=== PATIENT | male | born 1945 | race American Indian/Alaskan Native ===

== ENCOUNTER 2020-05-28 12:32 | Inpatient (IN) | payer MEDICARE, OTHER ==
[2020-05-28] MEDS ORDERED: SODIUM CHLORIDE 0.9% 1000 ML 1,000 ML IV ONE ×3 (13:30→18:55)
[2020-05-28 14:34] LABS: Hematocrit 20.9 % (35.5-45.6); Hemoglobin 7.1 gm/dl (11.8-15.2); Mean Corpuscular HGB Conc 34 % (32-34); Mean Corpuscular Volume 74 fl (84-94); Platelet Count 187 K/mm3 (140-440); Red Blood Count 2.84 M/mm3 (3.65-5.03); Red Cell Distribution Width 35.1 % (13.2-15.2)
[2020-05-28 14:52] LABS: Creatine Kinase MB 2.1 ng/mL (0.0-4.0)
[2020-05-28 14:55] LABS: Alanine Aminotransferase 6 units/L (7-56); Albumin 2.6 g/dL (3.9-5); BUN/Creatinine Ratio 18; Blood Urea Nitrogen 36 mg/dL (9-20); Calcium 8.2 mg/dL (8.4-10.2); Hemolysis Index 2
[2020-05-28 15:05] LABS: Free T4 (Free Thyroxine) 0.87 ng/dL (0.76-1.46)
[2020-05-28 15:48] LABS: Basophils % (Manual) 0 % (0.0-1.8); Eosinophils % (Manual) 0 % (0.0-4.3); Hypochromasia Few; Total Cells Counted 100
[2020-05-28 15:49] LABS: Anisocytosis 2+; Schistocytes Few
--- NOTE | 2020-05-28 16:07 | Emergency Department Report ---
ED General Adult HPI - General Chief complaint: Medical Clearance Stated complaint: WEAKNESS Time Seen by Provider: 05/28/20 13:41 Source: patient, EMS Mode of arrival: Stretcher Limitations: No Limitations - History of Present Illness Initial comments: Patient presents to the ED for AMS and low BP. Per EMS the patient has not been eating or drinking for the last 3 days. On my initial evaluation of the patient he has visitors in the room praying for him. 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 The patient is altered and not able to add to the initial evaluation. -: unknown Severity scale (0 -10): 0 Improves with: none Worsens with: none Associated Symptoms: denies other symptoms Treatments Prior to Arrival: none - Related Data Allergies Allergy/AdvReac Type Severity Reaction Status Date / Time No Known Allergies Allergy Unverified 05/28/20 12:55 ED Review of Systems ROS: Stated complaint: WEAKNESS Other details as noted in HPI Comment: Unobtainable due to pts medical conditions ED Past Medical Hx - Past Medical History Hx of Cancer: Yes (stage 4 prostate) Additional medical history: Anemia, G.I bleed - Surgical History Past Surgical History?: No - Social History Smoking Status: Never Smoker Substance Use Type: None ED Physical Exam - General Limitations: Altered Mental Status General appearance: in no apparent distress - Head Head exam: Present: atraumatic, normocephalic - Eye Eye exam: Present: normal appearance, PERRL Pupils: Present: normal accommodation, irregular - ENT ENT exam: Present: mucous membranes dry - Neck Neck exam: Present: normal inspection - Respiratory Respiratory exam: Present: normal lung sounds bilaterally. Absent: respiratory distress - Cardiovascular Cardiovascular Exam: Present: normal rhythm. Absent: regular rate - GI/Abdominal GI/Abdominal exam: Present: soft. Absent: distended, tenderness - Extremities Exam Extremities exam: Present: normal inspection - Neurological Exam Neurological exam: Present: other (altered ) - Psychiatric Psychiatric exam: Present: other (Not able to access due to the patient's condition) - Skin Skin exam: Present: warm, dry, intact, normal color. Absent: rash ED Course Vital Signs 05/28/20 05/28/20 05/28/20 12:55 13:16 13:24 Temperature 97.4 F L Pulse Rate 78 Respiratory 16 18 13 Rate Blood Pressure 89/31 O2 Sat by Pulse 95 99 Oximetry 05/28/20 05/28/20 05/28/20 13:30 13:45 14:01 Temperature Pulse Rate 83 81 70 Respiratory 15 21 15 Rate Blood Pressure 87/49 87/49 80/44 O2 Sat by Pulse 86 99 100 Oximetry 05/28/20 05/28/20 05/28/20 14:15 14:31 14:45 Temperature Pulse Rate 79 76 78 Respiratory 17 15 15 Rate Blood Pressure 58/38 58/38 80/44 O2 Sat by Pulse 86 94 100 Oximetry 05/28/20 05/28/20 05/28/20 15:01 15:15 15:31 Temperature Pulse Rate 79 78 Respiratory 16 21 15 Rate Blood Pressure 87/58 88/45 92/68 O2 Sat by Pulse 65 L 98 Oximetry 05/28/20 05/28/20 05/28/20 15:45 16:01 16:15 Temperature Pulse Rate 79 85 80 Respiratory 13 16 14 Rate Blood Pressure 89/59 89/59 89/59 O2 Sat by Pulse 100 73 L 71 L Oximetry 05/28/20 05/28/20 16:30 16:45 Temperature Pulse Rate 80 81 Respiratory 17 16 Rate Blood Pressure 88/52 87/49 O2 Sat by Pulse 65 L 65 L Oximetry ED Medical Decision Making - Lab Data Result diagrams: 05/28/20 14:11 05/28/20 14:11 Lab Results 05/28/20 05/28/20 05/28/20 Range/Units 14:11 14:11 14:11 WBC 6.3 (4.5-11.0) K/mm3 RBC 2.84 L (3.65-5.03) M/mm3 Hgb 7.1 L (11.8-15.2) gm/dl Hct 20.9 L (35.5-45.6) % MCV 74 L (84-94) fl MCH 25 L (28-32) pg MCHC 34 (32-34) % RDW 35.1 H (13.2-15.2) % Plt Count 187 (140-440) K/mm3 Add Manual Diff Complete Total Counted 100 Seg Neuts % (Manual) 74.0 H (40.0-70.0) % Band Neutrophils % 0 % Lymphocytes % (Manual) 18.0 (13.4-35.0) % Reactive Lymphs % (Man) 0 % Monocytes % (Manual) 8.0 H (0.0-7.3) % Eosinophils % (Manual) 0 (0.0-4.3) % Basophils % (Manual) 0 (0.0-1.8) % Metamyelocytes % 0 % Myelocytes % 0 % Promyelocytes % 0 % Blast Cells % 0 % Nucleated RBC % Not Reportable Seg Neutrophils # Man 4.7 (1.8-7.7) K/mm3 Band Neutrophils # 0.0 K/mm3 Lymphocytes # (Manual) 1.1 L (1.2-5.4) K/mm3 Abs React Lymphs (Man) 0.0 K/mm3 Monocytes # (Manual) 0.5 (0.0-0.8) K/mm3 Eosinophils # (Manual) 0.0 (0.0-0.4) K/mm3 Basophils # (Manual) 0.0 (0.0-0.1) K/mm3 Metamyelocytes # 0.0 K/mm3 Myelocytes # 0.0 K/mm3 Promyelocytes # 0.0 K/mm3 Blast Cells # 0.0 K/mm3 WBC Morphology Not Reportable Hypersegmented Neuts Not Reportable Hyposegmented Neuts Not Reportable Hypogranular Neuts Not Reportable Smudge Cells Not Reportable Toxic Granulation Not Reportable Toxic Vacuolation Not Reportable Dohle Bodies Not Reportable Pelger-Huet Anomaly Not Reportable Dorys Rods Not Reportable Platelet Estimate Not Reportable Clumped Platelets Not Reportable Plt Clumps, EDTA Not Reportable Large Platelets Not Reportable Giant Platelets Not Reportable Platelet Satelliting Not Reportable Plt Morphology Comment Not Reportable RBC Morphology Not Reportable Dimorphic RBCs Not Reportable Polychromasia Not Reportable Hypochromasia Few Poikilocytosis Not Reportable Anisocytosis 2+ Microcytosis 1+ Macrocytosis Not Reportable Spherocytes Not Reportable Pappenheimer Bodies Not Reportable Sickle Cells Not Reportable Target Cells Not Reportable Tear Drop Cells Not Reportable Ovalocytes Not Reportable Helmet Cells Not Reportable Simon-Kerrick Bodies Not Reportable [place] Rings Not Reportable [place] Cells Not Reportable Bite Cells Not Reportable Crenated Cell Not Reportable Elliptocytes Not Reportable Acanthocytes (Spur) Not Reportable Rouleaux Not Reportable Hemoglobin C Crystals Not Reportable Schistocytes Few Malaria parasites Not Reportable Varghese Bodies Not Reportable Hem Pathologist Commnt No Sodium 141 (137-145) mmol/L Potassium 3.8 (3.6-5.0) mmol/L Chloride 106.2 (98-107) mmol/L Carbon Dioxide 16 L (22-30) mmol/L Anion Gap 23 mmol/L BUN 36 H (9-20) mg/dL Creatinine 2.0 H (0.8-1.3) mg/dL Estimated GFR 40 ml/min BUN/Creatinine Ratio 18 % Glucose 87 (75-100) mg/dL Calcium 8.2 L (8.4-10.2) mg/dL Magnesium (1.7-2.3) mg/dL Total Bilirubin 0.40 (0.1-1.2) mg/dL AST 40 (5-40) units/L ALT 6 L (7-56) units/L Alkaline Phosphatase 82 (35-129) units/L Total Creatine Kinase 310 H (55-170) units/L CK-MB (CK-2) 2.1 (0.0-4.0) ng/mL CK-MB (CK-2) Rel Index 0.6 (0-4) Troponin T < 0.010 (0.00-0.029) ng/mL Total Protein 7.0 (6.3-8.2) g/dL Albumin 2.6 L (3.9-5) g/dL Albumin/Globulin Ratio 0.6 % Lipase 48 (13-60) units/L TSH 4.840 H (0.270-4.200) mlU/mL Free T4 0.87 (0.76-1.46) ng/dL Urine Color (Yellow) Urine Turbidity (Clear) Urine pH (5.0-7.0) Ur Specific Johnston (1.003-1.030) Urine Protein (Negative) mg/dL Urine Glucose (UA) (Negative) mg/dL Urine Ketones (Negative) mg/dL Urine Blood (Negative) Urine Nitrite (Negative) Urine Bilirubin (Negative) Urine Urobilinogen (<2.0) mg/dL Ur Leukocyte Esterase (Negative) Urine WBC (Auto) (0.0-6.0) /HPF Urine RBC (Auto) (0.0-6.0) /HPF U Epithel Cells (Auto) (0-13.0) /HPF Urine Bacteria (Auto) (Negative) /HPF Hyaline Casts /LPF Urine Mucus /HPF Urine Opiates Screen Urine Methadone Screen Ur Barbiturates Screen Ur Phencyclidine Scrn Ur Amphetamines Screen U Benzodiazepines Scrn Urine Cocaine Screen U Marijuana (THC) Screen Drugs of Abuse Note 05/28/20 05/28/20 05/28/20 Range/Units 14:11 Unknown Unknown WBC (4.5-11.0) K/mm3 RBC (3.65-5.03) M/mm3 Hgb (11.8-15.2) gm/dl Hct (35.5-45.6) % MCV (84-94) fl MCH (28-32) pg MCHC (32-34) % RDW (13.2-15.2) % Plt Count (140-440) K/mm3 Add Manual Diff Total Counted Seg Neuts % (Manual) (40.0-70.0) % Band Neutrophils % % Lymphocytes % (Manual) (13.4-35.0) % Reactive Lymphs % (Man) % Monocytes % (Manual) (0.0-7.3) % Eosinophils % (Manual) (0.0-4.3) % Basophils % (Manual) (0.0-1.8) % Metamyelocytes % % Myelocytes % % Promyelocytes % % Blast Cells % % Nucleated RBC % Seg Neutrophils # Man (1.8-7.7) K/mm3 Band Neutrophils # K/mm3 Lymphocytes # (Manual) (1.2-5.4) K/mm3 Abs React Lymphs (Man) K/mm3 Monocytes # (Manual) (0.0-0.8) K/mm3 Eosinophils # (Manual) (0.0-0.4) K/mm3 Basophils # (Manual) (0.0-0.1) K/mm3 Metamyelocytes # K/mm3 Myelocytes # K/mm3 Promyelocytes # K/mm3 Blast Cells # K/mm3 WBC Morphology Hypersegmented Neuts Hyposegmented Neuts Hypogranular Neuts Smudge Cells Toxic Granulation Toxic Vacuolation Dohle Bodies Pelger-Huet Anomaly Dorys Rods Platelet Estimate Clumped Platelets Plt Clumps, EDTA Large Platelets Giant Platelets Platelet Satelliting Plt Morphology Comment RBC Morphology Dimorphic RBCs Polychromasia Hypochromasia Poikilocytosis Anisocytosis Microcytosis Macrocytosis Spherocytes Pappenheimer Bodies Sickle Cells Target Cells Tear Drop Cells Ovalocytes Helmet Cells Simon-Kerrick Bodies [place] Rings [place] Cells Bite Cells Crenated Cell Elliptocytes Acanthocytes (Spur) Rouleaux Hemoglobin C Crystals Schistocytes Malaria parasites Varghese Bodies Hem Pathologist Commnt Sodium (137-145) mmol/L Potassium (3.6-5.0) mmol/L Chloride (98-107) mmol/L Carbon Dioxide (22-30) mmol/L Anion Gap mmol/L BUN (9-20) mg/dL Creatinine (0.8-1.3) mg/dL Estimated GFR ml/min BUN/Creatinine Ratio % Glucose (75-100) mg/dL Calcium (8.4-10.2) mg/dL Magnesium 2.00 (1.7-2.3) mg/dL Total Bilirubin (0.1-1.2) mg/dL AST (5-40) units/L ALT (7-56) units/L Alkaline Phosphatase (35-129) units/L Total Creatine Kinase (55-170) units/L CK-MB (CK-2) (0.0-4.0) ng/mL CK-MB (CK-2) Rel Index (0-4) Troponin T (0.00-0.029) ng/mL Total Protein (6.3-8.2) g/dL Albumin (3.9-5) g/dL Albumin/Globulin Ratio % Lipase (13-60) units/L TSH (0.270-4.200) mlU/mL Free T4 (0.76-1.46) ng/dL Urine Color Yellow (Yellow) Urine Turbidity Clear (Clear) Urine pH 5.0 (5.0-7.0) Ur Specific Johnston 1.017 (1.003-1.030) Urine Protein <15 mg/dl (Negative) mg/dL Urine Glucose (UA) Neg (Negative) mg/dL Urine Ketones Tr (Negative) mg/dL Urine Blood Neg (Negative) Urine Nitrite Neg (Negative) Urine Bilirubin Neg (Negative) Urine Urobilinogen 2.0 (<2.0) mg/dL Ur Leukocyte Esterase Tr (Negative) Urine WBC (Auto) 5.0 (0.0-6.0) /HPF Urine RBC (Auto) 3.0 (0.0-6.0) /HPF U Epithel Cells (Auto) 1.0 (0-13.0) /HPF Urine Bacteria (Auto) 1+ (Negative) /HPF Hyaline Casts 1 /LPF Urine Mucus Few /HPF Urine Opiates Screen Presumptive negative Urine Methadone Screen Presumptive negative Ur Barbiturates Screen Presumptive negative Ur Phencyclidine Scrn Presumptive negative Ur Amphetamines Screen Presumptive negative U Benzodiazepines Scrn Presumptive negative Urine Cocaine Screen Presumptive negative U Marijuana (THC) Screen Presumptive negative Drugs of Abuse Note Disclamer - EKG Data -: EKG Interpreted by Nm EKG shows normal: sinus rhythm Rate: normal - Medical Decision Making 2 L NS of IV fluids were given without increase in BP Critical Care Time: Yes Critical care time in (mins) excluding proc time.: 35 Critical care attestation.: If time is entered above; I have spent that time in minutes in the direct care of this critically ill patient, excluding procedure time. ED Disposition Clinical Impression: Hypotension, Altered mental status Disposition: DC-09 OP ADMIT IP TO THIS HOSP Is pt being admited?: Yes Does the pt Need Aspirin: No Condition: Stable Referrals: PRIMARY CARE, [Primary Care Provider] - 3-5 Days
[2020-05-28 16:56] LABS: Bacteria,Urine 1+ /HPF (Negative); Bilirubin,Urine NEG (Negative); Blood,Urine NEG (Negative); Color,Urine Yellow (Yellow); Hyaline Casts,Urine 1 /LPF; Mucus,Urine FEW /HPF; Protein,Urine <15 mg/dL mg/dL (Negative)
[2020-05-28 17:02] LABS: Amphetamine Screen,Urine PRESUMPTIVE NEGATIVE; Benzodiazepines Screen,Urine PRESUMPTIVE NEGATIVE; Cannabinoid Screen,Urine PRESUMPTIVE NEGATIVE; Cocaine Screen,Urine PRESUMPTIVE NEGATIVE; Methadone Screen,Urine PRESUMPTIVE NEGATIVE; Opiate Screen,Urine PRESUMPTIVE NEGATIVE
--- NOTE | 2020-05-28 17:08 | Cat Scan Report ---
CT head/brain wo con INDICATION: ams. TECHNIQUE: Routine CT head. All CT scans at this location are performed using CT dose reduction for A HAMIDA by means of automated exposure control. COMPARISON: None. FINDINGS: Intracranial: Martell-white matter differentiation is maintained. No intracranial hemorrhage. No extra a xial collection.. No hydrocephalus. No herniation. Sinuses: Paranasal sinuses and mastoid air cells are essentially clear. Orbits: Globes are intact. Calvarium: No acute fracture. IMPRESSION: 1. No acute intracranial abnormality. Signer Name: Tom Sosa MD Signed: 05/28/2020 5:04 PM Workstation Name: [id number]
[2020-05-28] MEDS ORDERED: cefTRIAXone/NS 2 GM/100 ML 2 GM/100 ML BAG IV ONE ×2 (18:38→21:09)
--- NOTE | 2020-05-28 18:44 | History and Physical Report ---
History of Present Illness Chief complaint: He is confused and he is getting weaker History of present illness: 75 YO Male with Vascular Dementia, Cerebral Atherosclerosis presents to ED for evaluation. Patient is confused and lethargic and unable to provide detailed history at the time of my evaluation. Patient history taken from EMS, ED staff, as well as friends who are at the bedside during exam and interview. As per family and friends, the patient has experienced increased confusion and decreased oral intake over the past 3 days since [facility]. Patient is currently bedbound, nonambulatory, requires 6/6 assistance with activities of daily living, and has a palliative performance score 30%. EMS was notified and upon arrival the patient was found to be in distress and subsequently transported to [facility] for further care and evaluation of the aforementioned symptoms. Patient seen and evaluated in the emergency department. All lab and imaging studies reviewed. Patient found to have metabolic encephalopathy, hypotension, metabolic acidosis, acute kidney injury with concomitant volume depletion and acute tubular necrosis, as well as hypotension with the Bystolic blood pressure in the 70s.. Patient treated with IV fluid resuscitation therapy with mild improvement in systolic blood pressure. Patient admitted to telemetry due to increased risk of multisystem organ failure. No prior admission for review. No medication listed at time of admission for reconciliation. Advanced care planning conducted in ED. Patient is confused and lethargic at the time of my evaluation but the patient has a positive gag reflex and is able to protect his airway without difficulty. Past History Past Medical History: other (See HPI) Past Surgical History: No surgical history, Other (Reviewed) Social history: single. denies: smoking, alcohol abuse (Hospital) Family history: no significant family history Medications and Allergies Allergies Allergy/AdvReac Type Severity Reaction Status Date / Time No Known Allergies Allergy Unverified 05/28/20 12:55 Active Meds: Active Medications Sodium Chloride (Nacl 0.9% 1000 Ml) 1,000 mls @ 999 mls/hr IV BOLUS ONE Stop: 05/28/20 19:37 Ceftriaxone Sodium (Rocephin/Ns 2 Gm/100 Ml) 2 gm in 100 mls @ 200 mls/hr IV ONCE ONE; Protocol Stop: 05/28/20 19:07 Review of Systems ROS unobtainable: due to mental status Exam - Constitutional Vitals: Temp Pulse Resp BP Pulse Ox 97.4 F L 81 16 87/49 65 L 10/19/20 12:55 05/28/20 16:45 05/28/20 16:45 05/28/20 16:45 05/28/20 16:45 General appearance: Present: mild distress - EENT Eyes: Present: PERRL ENT: hearing intact, clear oral mucosa - Neck Neck: Present: supple, normal ROM - Respiratory Respiratory effort: normal Respiratory: bilateral: CTA - Cardiovascular Heart Sounds: Present: S1 & S2. Absent: rub, click - Extremities Extremities: pulses symmetrical, No edema Peripheral Pulses: abnormal - Abdominal General gastrointestinal: Present: soft, non-tender, non-distended, normal bowel sounds Male genitourinary: Present: normal - Integumentary Integumentary: Present: dry, clammy, decreased turgor - Musculoskeletal Musculoskeletal: generalized weakness - Psychiatric Psychiatric: no appropriate mood/affect, no intact judgment & insight, no memory intact - Neurologic Neurologic: CNII-XII intact, moves all extremities HEART Score - HEART Score Troponin: Troponin T < 0.010 ng/mL (0.00-0.029) 05/28/20 14:11 Results - Labs CBC & Chem 7: 05/28/20 14:11 05/28/20 14:11 Labs: Abnormal lab results 05/28/20 05/28/20 05/28/20 Range/Units 14:11 14:11 14:11 RBC 2.84 L (3.65-5.03) M/mm3 Hgb 7.1 L (11.8-15.2) gm/dl Hct 20.9 L (35.5-45.6) % MCV 74 L (84-94) fl MCH 25 L (28-32) pg RDW 35.1 H (13.2-15.2) % Seg Neuts % (Manual) 74.0 H (40.0-70.0) % Monocytes % (Manual) 8.0 H (0.0-7.3) % Lymphocytes # (Manual) 1.1 L (1.2-5.4) K/mm3 Carbon Dioxide 16 L (22-30) mmol/L BUN 36 H (9-20) mg/dL Creatinine 2.0 H (0.8-1.3) mg/dL Calcium 8.2 L (8.4-10.2) mg/dL ALT 6 L (7-56) units/L Total Creatine Kinase 310 H (55-170) units/L Albumin 2.6 L (3.9-5) g/dL TSH 4.840 H (0.270-4.200) mlU/mL Assessment and Plan - Patient Problems (1) Metabolic encephalopathy Current Visit: Yes Status: Acute Plan to address problem: CT head, neuro check, aspiration precautions, fall precautions, IV fluid resuscitation therapy, supportive care. (2) Metabolic acidosis Current Visit: Yes Status: Acute Plan to address problem: IV fluid resuscitation therapy, IV bicarbonate therapy, supportive care. (3) Acute kidney injury (PATO) with acute tubular necrosis (ATN) Current Visit: Yes Status: Acute Plan to address problem: IV fluid resuscitation therapy, monitor urine output every shift, avoid nephrotoxic agents. (4) Volume depletion Current Visit: Yes Status: Acute Plan to address problem: IV fluid resuscitation therapy, monitor urine output every shift, repeat BMP in a.m. (5) Vascular dementia Current Visit: Yes Status: Acute Qualifiers: Dementia behavioral disturbance: without behavioral disturbance Qualified Code(s): F01.50 - Vascular dementia without behavioral disturbance Plan to address problem: Verbal prompting, verbal redirection, benzodiazepine therapy as needed, supportive care. (6) Cerebral atherosclerosis Current Visit: Yes Status: Acute Plan to address problem: Supportive care, continue medical management, risk factor reduction. (7) DVT prophylaxis Current Visit: Yes Status: Acute Plan to address problem: SCD to bilateral lower extremities while in bed, prophylactic anticoagulation (8) Advance care planning Current Visit: Yes Status: Acute Plan to address problem: Disease education conducted, patient is full code, prognosis discussed, patient family acknowledge understanding and agreement with care plan, +30 minutes.
[2020-05-28] MEDS ORDERED: ACETAMINOPHEN 325 MG TAB PO PRN (18:59)
[2020-05-28] MEDS ORDERED: ONDANSETRON 4 MG/2 ML INJ IV PRN (18:59)
[2020-05-28] MEDS ORDERED: SODIUM CHLORIDE 0.9% 1000 ML 1,000 ML IV SCH (19:00)
[2020-05-28 19:49] LABS: Free T4 (Free Thyroxine) 0.86 ng/dL (0.76-1.46)
--- NOTE | 2020-05-28 20:02 | XRay Report ---
CHEST 1 VIEW 1926 INDICATION / CLINICAL INFORMATION: hypotension COMPARISON: None available. FINDINGS: SUPPORT DEVICES: None HEART / MEDIASTINUM: No significant abnormality. LUNGS / PLEURA: Poor degree of inspiration is seen. Artifact is noted on the right. No definite acute infiltrates are noted. No pneumothorax. ADDITIONAL FINDINGS: No significant additional findings. IMPRESSION: No significant acute abnormality Signer Name: Polo Butterfield MD Signed: 05/28/2020 7:58 PM Workstation Name: [id number]
[2020-05-28] MEDS ORDERED: SODIUM CHLORIDE 0.9% 1000 ML 1,000 ML ONE (21:09)
[2020-05-29] MEDS: HEPARIN 5,000 UNIT/1 ML VIAL SUB-Q SCH ×3 (01:08→22:08)
[2020-05-29 05:53] LABS: Calcium 8.6 mg/dL (8.4-10.2)
--- NOTE | 2020-05-29 09:35 | Progress Note ---
Assessment and Plan Assessment and plan: 75 YO Male with Vascular Dementia, Cerebral Atherosclerosis presents to ED for evaluation. Patient is confused and lethargic and unable to provide detailed history at the time of my evaluation. Patient history taken from EMS, ED staff, as well as friends who are at the bedside during exam and interview. As per family and friends, the patient has experienced increased confusion and decreased oral intake over the past 3 days since discharge home from a [facility] facility. Patient is currently bedbound, nonambulatory, requires 6/6 assistance with activities of daily living, and has a palliative performance score 30%. EMS was notified and upon arrival the patient was found to be in distress and subsequently transported to [facility] for further care and evaluation of the aforementioned symptoms. Patient seen and evaluated in the emergency department. All lab and imaging studies reviewed. Patient found to have metabolic encephalopathy, hypotension, metabolic acidosis, acute kidney injury with concomitant volume depletion and acute tubular necrosis, as well as hypotension with the Bystolic blood pressure in the 70s.. Patient treated with IV fluid resuscitation therapy with mild improvement in systolic blood pressure. Patient admitted to telemetry due to increased risk of multisystem organ failure. No prior admission for review. No medication listed at time of admission for reconciliation. Advanced care planning conducted in ED. Patient is confused and lethargic at the time of my evaluation but the patient has a positive gag reflex and is able to protect his airway without difficulty. Severe anemia -Hemoglobin was 7.1 yesterday, will check hemoglobin today -Anemia work-up -GI wants to do EGD/colonoscopy but could not get any family member to sign the consent -Repeat hemoglobin this morning is 5.9 and will transfuse 2 units of blood (1) Metabolic encephalopathy Current Visit: Yes Status: Acute Plan to address problem: CT head, neuro check, aspiration precautions, fall precautions, IV fluid resuscitation therapy, supportive care. (2) Metabolic acidosis Current Visit: Yes Status: Acute Plan to address problem: IV fluid resuscitation therapy, IV bicarbonate therapy, supportive care. (3) Acute kidney injury (PATO) with acute tubular necrosis (ATN) Current Visit: Yes Status: Acute Plan to address problem: IV fluid resuscitation therapy, monitor urine output every shift, avoid nephrotoxic agents. (4) Volume depletion Current Visit: Yes Status: Acute Plan to address problem: IV fluid resuscitation therapy, monitor urine output every shift, repeat BMP in a.m. (5) Vascular dementia Current Visit: Yes Status: Acute Qualifiers: Dementia behavioral disturbance: without behavioral disturbance Qualified Code(s): F01.50 - Vascular dementia without behavioral disturbance Plan to address problem: Verbal prompting, verbal redirection, benzodiazepine therapy as needed, supportive care. (6) Cerebral atherosclerosis Current Visit: Yes Status: Acute Plan to address problem: Supportive care, continue medical management, risk factor reduction. (7) DVT prophylaxis Current Visit: Yes Status: Acute Plan to address problem: SCD to bilateral lower extremities while in bed (8) Advance care planning Current Visit: Yes Status: Acute Plan to address problem: Disease education conducted, patient is full code, prognosis discussed, patient family acknowledge understanding and agreement with care plan, +30 minutes. History Interval history: Patient was seen and evaluated this morning Patient is demented but calm and cooperative Hospitalist Physical - Physical exam Narrative exam: Not in cardiopulmonary distress. The patient appeared well nourished and normally developed. Vital signs as documented. Head exam is unremarkable. No scleral icterus . Neck is without jugular venous distension, thyromegaly, or carotid bruits. Lungs are clear to auscultation. Cardiac exam reveals regular rate and Rhythm. Abdominal exam reveals normal bowel sounds, nontender, no organomegaly. Extremities are nonedematous and both femoral and pedal pulses are normal. HEADLIGHT ADJUSTER: Alert . No focal weakness. - Constitutional Vitals: Temp Pulse Resp BP Pulse Ox 97.0 F L 92 H 20 88/50 93 05/29/20 07:25 05/29/20 07:25 05/29/20 07:25 05/29/20 07:25 05/29/20 07:25 General appearance: Present: mild distress HEART Score - HEART Score Troponin: Troponin T < 0.010 ng/mL (0.00-0.029) 05/28/20 14:11 Results - Labs CBC & Chem 7: 05/29/20 10:51 05/29/20 04:58 Labs: Laboratory Last Values WBC 6.3 K/mm3 (4.5-11.0) 05/28/20 14:11 RBC 2.84 M/mm3 (3.65-5.03) L 05/28/20 14:11 Hgb 7.1 gm/dl (11.8-15.2) L 05/28/20 14:11 Hct 20.9 % (35.5-45.6) L 05/28/20 14:11 MCV 74 fl (84-94) L 05/28/20 14:11 MCH 25 pg (28-32) L 05/28/20 14:11 MCHC 34 % (32-34) 05/28/20 14:11 RDW 35.1 % (13.2-15.2) H 05/28/20 14:11 Plt Count 187 K/mm3 (140-440) 05/28/20 14:11 Add Manual Diff Complete 05/28/20 14:11 Total Counted 100 05/28/20 14:11 Seg Neuts % (Manual) 74.0 % (40.0-70.0) H 05/28/20 14:11 Band Neutrophils % 0 % 05/28/20 14:11 Lymphocytes % (Manual) 18.0 % (13.4-35.0) 05/28/20 14:11 Reactive Lymphs % (Man) 0 % 05/28/20 14:11 Monocytes % (Manual) 8.0 % (0.0-7.3) H 05/28/20 14:11 Eosinophils % (Manual) 0 % (0.0-4.3) 05/28/20 14:11 Basophils % (Manual) 0 % (0.0-1.8) 05/28/20 14:11 Metamyelocytes % 0 % 05/28/20 14:11 Myelocytes % 0 % 05/28/20 14:11 Promyelocytes % 0 % 05/28/20 14:11 Blast Cells % 0 % 05/28/20 14:11 Nucleated RBC % Not Reportable 05/28/20 14:11 Seg Neutrophils # Man 4.7 K/mm3 (1.8-7.7) 05/28/20 14:11 Band Neutrophils # 0.0 K/mm3 05/28/20 14:11 Lymphocytes # (Manual) 1.1 K/mm3 (1.2-5.4) L 05/28/20 14:11 Abs React Lymphs (Man) 0.0 K/mm3 05/28/20 14:11 Monocytes # (Manual) 0.5 K/mm3 (0.0-0.8) 05/28/20 14:11 Eosinophils # (Manual) 0.0 K/mm3 (0.0-0.4) 05/28/20 14:11 Basophils # (Manual) 0.0 K/mm3 (0.0-0.1) 05/28/20 14:11 Metamyelocytes # 0.0 K/mm3 05/28/20 14:11 Myelocytes # 0.0 K/mm3 05/28/20 14:11 Promyelocytes # 0.0 K/mm3 05/28/20 14:11 Blast Cells # 0.0 K/mm3 05/28/20 14:11 WBC Morphology Not Reportable 05/28/20 14:11 Hypersegmented Neuts Not Reportable 05/28/20 14:11 Hyposegmented Neuts Not Reportable 05/28/20 14:11 Hypogranular Neuts Not Reportable 05/28/20 14:11 Smudge Cells Not Reportable 05/28/20 14:11 Toxic Granulation Not Reportable 05/28/20 14:11 Toxic Vacuolation Not Reportable 05/28/20 14:11 Dohle Bodies Not Reportable 05/28/20 14:11 Pelger-Huet Anomaly Not Reportable 05/28/20 14:11 Dorys Rods Not Reportable 05/28/20 14:11 Platelet Estimate Not Reportable 05/28/20 14:11 Clumped Platelets Not Reportable 05/28/20 14:11 Plt Clumps, EDTA Not Reportable 05/28/20 14:11 Large Platelets Not Reportable 05/28/20 14:11 Giant Platelets Not Reportable 05/28/20 14:11 Platelet Satelliting Not Reportable 05/28/20 14:11 Plt Morphology Comment Not Reportable 05/28/20 14:11 RBC Morphology Not Reportable 05/28/20 14:11 Dimorphic RBCs Not Reportable 05/28/20 14:11 Polychromasia Not Reportable 05/28/20 14:11 Hypochromasia Few 05/28/20 14:11 Poikilocytosis Not Reportable 05/28/20 14:11 Anisocytosis 2+ 05/28/20 14:11 Microcytosis 1+ 05/28/20 14:11 Macrocytosis Not Reportable 05/28/20 14:11 Spherocytes Not Reportable 05/28/20 14:11 Pappenheimer Bodies Not Reportable 05/28/20 14:11 Sickle Cells Not Reportable 05/28/20 14:11 Target Cells Not Reportable 05/28/20 14:11 Tear Drop Cells Not Reportable 05/28/20 14:11 Ovalocytes Not Reportable 05/28/20 14:11 Helmet Cells Not Reportable 05/28/20 14:11 [place] Bodies Not Reportable 05/28/20 14:11 [place] Rings Not Reportable 05/28/20 14:11 [place] Cells Not Reportable 05/28/20 14:11 Bite Cells Not Reportable 05/28/20 14:11 Crenated Cell Not Reportable 05/28/20 14:11 Elliptocytes Not Reportable 05/28/20 14:11 Acanthocytes (Spur) Not Reportable 05/28/20 14:11 Rouleaux Not Reportable 05/28/20 14:11 Hemoglobin C Crystals Not Reportable 05/28/20 14:11 Schistocytes Few 05/28/20 14:11 Malaria parasites Not Reportable 05/28/20 14:11 Varghese Bodies Not Reportable 05/28/20 14:11 Hem Pathologist Commnt No 05/28/20 14:11 Sodium 144 mmol/L (137-145) 05/29/20 04:58 Potassium 4.5 mmol/L (3.6-5.0) 05/29/20 04:58 Chloride 107.7 mmol/L (98-107) H 05/29/20 04:58 Carbon Dioxide 15 mmol/L (22-30) L 05/29/20 04:58 Anion Gap 26 mmol/L 05/29/20 04:58 BUN 37 mg/dL (9-20) H 05/29/20 04:58 Creatinine 2.1 mg/dL (0.8-1.3) H 05/29/20 04:58 Estimated GFR 38 ml/min 05/29/20 04:58 BUN/Creatinine Ratio 18 % 05/29/20 04:58 Glucose 84 mg/dL (75-100) 05/29/20 04:58 Lactic Acid 1.40 mmol/L (0.7-2.0) 05/28/20 18:52 Calcium 8.6 mg/dL (8.4-10.2) 05/29/20 04:58 Magnesium 2.00 mg/dL (1.7-2.3) 05/28/20 14:11 Total Bilirubin 0.40 mg/dL (0.1-1.2) 05/28/20 14:11 AST 40 units/L (5-40) 05/28/20 14:11 ALT 6 units/L (7-56) L 05/28/20 14:11 Alkaline Phosphatase 82 units/L (35-129) 05/28/20 14:11 Total Creatine Kinase 310 units/L (55-170) H 05/28/20 14:11 CK-MB (CK-2) 2.1 ng/mL (0.0-4.0) 05/28/20 14:11 CK-MB (CK-2) Rel Index 0.6 (0-4) 05/28/20 14:11 Troponin T < 0.010 ng/mL (0.00-0.029) 05/28/20 14:11 Total Protein 7.0 g/dL (6.3-8.2) 05/28/20 14:11 Albumin 2.6 g/dL (3.9-5) L 05/28/20 14:11 Albumin/Globulin Ratio 0.6 % 05/28/20 14:11 Lipase 48 units/L (13-60) 05/28/20 14:11 TSH 4.930 mlU/mL (0.270-4.200) H 05/28/20 19:11 Free T4 0.86 ng/dL (0.76-1.46) 05/28/20 19:11 Urine Color Yellow (Yellow) 05/28/20 Unknown Urine Turbidity Clear (Clear) 05/28/20 Unknown Urine pH 5.0 (5.0-7.0) 05/28/20 Unknown Ur Specific [place] 1.017 (1.003-1.030) 05/28/20 Unknown Urine Protein <15 mg/dl mg/dL (Negative) 05/28/20 Unknown Urine Glucose (UA) Neg mg/dL (Negative) 05/28/20 Unknown Urine Ketones Tr mg/dL (Negative) 05/28/20 Unknown Urine Blood Neg (Negative) 05/28/20 Unknown Urine Nitrite Neg (Negative) 05/28/20 Unknown Urine Bilirubin Neg (Negative) 05/28/20 Unknown Urine Urobilinogen 2.0 mg/dL (<2.0) 05/28/20 Unknown Ur Leukocyte Esterase Tr (Negative) 05/28/20 Unknown Urine WBC (Auto) 5.0 /HPF (0.0-6.0) 05/28/20 Unknown Urine RBC (Auto) 3.0 /HPF (0.0-6.0) 05/28/20 Unknown U Epithel Cells (Auto) 1.0 /HPF (0-13.0) 05/28/20 Unknown Urine Bacteria (Auto) 1+ /HPF (Negative) 05/28/20 Unknown Hyaline Casts 1 /LPF 05/28/20 Unknown Urine Mucus Few /HPF 05/28/20 Unknown Urine Opiates Screen Presumptive negative 05/28/20 Unknown Urine Methadone Screen Presumptive negative 05/28/20 Unknown Ur Barbiturates Screen Presumptive negative 05/28/20 Unknown Ur Phencyclidine Scrn Presumptive negative 05/28/20 Unknown Ur Amphetamines Screen Presumptive negative 05/28/20 Unknown U Benzodiazepines Scrn Presumptive negative 05/28/20 Unknown Urine Cocaine Screen Presumptive negative 05/28/20 Unknown U Marijuana (THC) Screen Presumptive negative 05/28/20 Unknown Drugs of Abuse Note Disclamer 05/28/20 Unknown Microbiology: Microbiology 05/28/20 18:52 Peripheral/Venous Blood Culture - Preliminary Culture in Progress 05/28/20 18:52 Peripheral/Venous Blood Culture - Preliminary Culture in Progress Rodriguez/IV: Voiding Method Incontinent IV Catheter Type [Right Peripheral IV Antecubital] Active Medications - Current Medications Current Medications: Generic Name Dose Route Start Last Admin Trade Name Freq PRN Reason Stop Dose Admin Acetaminophen 650 mg 05/28/20 18:59 Tylenol PO Q4H PRN Pain MILD(1-3)/Fever >100.5/SCANLON Heparin Sodium (Porcine) 5,000 unit 05/28/20 22:00 05/29/20 01:08 Heparin SUB-Q Not Given Q12HR GISELA Sodium Chloride 1,000 mls @ 100 mls/hr 05/28/20 19:00 05/29/20 05:35 Nacl 0.9% 1000 Ml IV 100 mls/hr DIRECT GISELA Administration Ondansetron HCl 4 mg 05/28/20 18:59 Zofran IV Q8H PRN Nausea And Vomiting Sodium Chloride 10 ml 05/28/20 22:00 05/29/20 05:35 Sodium Chloride Flush Syringe 10 Ml IV 10 ml BID GISELA Administration Sodium Chloride 10 ml 05/28/20 18:59 Sodium Chloride Flush Syringe 10 Ml IV PRN PRN LINE FLUSH
[2020-05-29] MEDS ORDERED: SODIUM CHLORIDE 0.9% 1000 ML 1,000 ML IV ONE (09:42)
--- NOTE | 2020-05-29 10:21 | Gastroenterology Consultation ---
History of Present Illness - Reason for Consult Consult date: 05/29/20 anemia Requesting physician: KENDALL ARELLANO - History of Present Illness History obtained from chart. No family members present at bedside and patient cannot provide history. No contact information in chart. I spoke with the nurse she does not have any family contact information has not spoken with family either 75 YO Male with Vascular Dementia, Cerebral Atherosclerosis presented to ED for evaluation for lethargy and confusion. Reportedly patient with increasing confusion and decreased oral intake in the last 3 days. Nurse reports she was told that last shift patient had a single bowel movement that had blood in it she does not have more information. Patient is found to be significantly anemic Occult blood and iron stores are ordered, not yet completed Obtained/updated/reviewed patient's current medications Past History Past Medical History: other (Vascular Dementia, Cerebral Atherosclerosis) Past Surgical History: No surgical history, Other (Reviewed) Social history: single. denies: smoking, alcohol abuse (Hospital) Family history: no significant family history Medications and Allergies Allergies Allergy/AdvReac Type Severity Reaction Status Date / Time No Known Allergies Allergy Unverified 05/28/20 12:55 Active Meds: Active Medications Acetaminophen (Tylenol) 650 mg PO Q4H PRN PRN Reason: Pain MILD(1-3)/Fever >100.5/SCANLON Heparin Sodium (Porcine) (Heparin) 5,000 unit SUB-Q Q12HR GISELA Last Admin: 05/29/20 01:08 Dose: Not Given Documented by: Sodium Chloride (Nacl 0.9% 1000 Ml) 1,000 mls @ 100 mls/hr IV DIRECT GISELA Last Admin: 05/29/20 05:35 Dose: 100 mls/hr Documented by: Sodium Chloride (Nacl 0.9% 1000 Ml) 1,000 mls @ 999 mls/hr IV BOLUS ONE Stop: 05/29/20 10:42 Ondansetron HCl (Zofran) 4 mg IV Q8H PRN PRN Reason: Nausea And Vomiting Sodium Chloride (Sodium Chloride Flush Syringe 10 Ml) 10 ml IV BID GISELA Last Admin: 05/29/20 05:35 Dose: 10 ml Documented by: Sodium Chloride (Sodium Chloride Flush Syringe 10 Ml) 10 ml IV PRN PRN PRN Reason: LINE FLUSH Review of Systems - Review of Systems ROS unobtainable: due to mental status All systems: negative Exam - Constitutional Vital Signs: Temp Pulse Resp BP Pulse Ox 97.0 F L 92 H 20 88/50 93 05/29/20 07:25 05/29/20 07:25 05/29/20 07:25 05/29/20 07:25 05/29/20 07:25 General appearance: other (thin) - EENT Eyes: EOM intact ENT: hearing intact - Neck Neck: supple - Respiratory Respiratory effort: normal - Cardiovascular Rhythm: regular - Gastrointestinal General gastrointestinal: Present: tender, distended, normal bowel sounds - Integumentary Integumentary: Present: dry - Neurologic Neurological: disoriented - Psychiatric Psychiatric: other (Pleasant but confused) - Labs CBC & Chem 7: 05/28/20 14:11 05/29/20 04:58 Lab Results: Laboratory Results - last 24 hr 05/28/20 05/28/20 05/28/20 14:11 14:11 14:11 WBC 6.3 RBC 2.84 L Hgb 7.1 L Hct 20.9 L MCV 74 L MCH 25 L MCHC 34 RDW 35.1 H Plt Count 187 Add Manual Diff Complete Total Counted 100 Seg Neuts % (Manual) 74.0 H Band Neutrophils % 0 Lymphocytes % (Manual) 18.0 Reactive Lymphs % (Man) 0 Monocytes % (Manual) 8.0 H Eosinophils % (Manual) 0 Basophils % (Manual) 0 Metamyelocytes % 0 Myelocytes % 0 Promyelocytes % 0 Blast Cells % 0 Nucleated RBC % Not Reportable Seg Neutrophils # Man 4.7 Band Neutrophils # 0.0 Lymphocytes # (Manual) 1.1 L Abs React Lymphs (Man) 0.0 Monocytes # (Manual) 0.5 Eosinophils # (Manual) 0.0 Basophils # (Manual) 0.0 Metamyelocytes # 0.0 Myelocytes # 0.0 Promyelocytes # 0.0 Blast Cells # 0.0 WBC Morphology Not Reportable Hypersegmented Neuts Not Reportable Hyposegmented Neuts Not Reportable Hypogranular Neuts Not Reportable Smudge Cells Not Reportable Toxic Granulation Not Reportable Toxic Vacuolation Not Reportable Dohle Bodies Not Reportable Pelger-Huet Anomaly Not Reportable Dorys Rods Not Reportable Platelet Estimate Not Reportable Clumped Platelets Not Reportable Plt Clumps, EDTA Not Reportable Large Platelets Not Reportable Giant Platelets Not Reportable Platelet Satelliting Not Reportable Plt Morphology Comment Not Reportable RBC Morphology Not Reportable Dimorphic RBCs Not Reportable Polychromasia Not Reportable Hypochromasia Few Poikilocytosis Not Reportable Anisocytosis 2+ Microcytosis 1+ Macrocytosis Not Reportable Spherocytes Not Reportable Pappenheimer Bodies Not Reportable Sickle Cells Not Reportable Target Cells Not Reportable Tear Drop Cells Not Reportable Ovalocytes Not Reportable Helmet Cells Not Reportable Simon-[place] Bodies Not Reportable [place] Rings Not Reportable Meg[place]el Cells Not Reportable Bite Cells Not Reportable Crenated Cell Not Reportable Elliptocytes Not Reportable Acanthocytes (Spur) Not Reportable Rouleaux Not Reportable Hemoglobin C Crystals Not Reportable Schistocytes Few Malaria parasites Not Reportable Varghese Bodies Not Reportable Hem Pathologist Commnt No Sodium 141 Potassium 3.8 Chloride 106.2 Carbon Dioxide 16 L Anion Gap 23 BUN 36 H Creatinine 2.0 H Estimated GFR 40 BUN/Creatinine Ratio 18 Glucose 87 Lactic Acid Calcium 8.2 L Magnesium Total Bilirubin 0.40 AST 40 ALT 6 L Alkaline Phosphatase 82 Total Creatine Kinase 310 H CK-MB (CK-2) 2.1 CK-MB (CK-2) Rel Index 0.6 Troponin T < 0.010 Total Protein 7.0 Albumin 2.6 L Albumin/Globulin Ratio 0.6 Lipase 48 TSH 4.840 H Free T4 0.87 Urine Color Urine Turbidity Urine pH Ur Specific [place] Urine Protein Urine Glucose (UA) Urine Ketones Urine Blood Urine Nitrite Urine Bilirubin Urine Urobilinogen Ur Leukocyte Esterase Urine WBC (Auto) Urine RBC (Auto) U Epithel Cells (Auto) Urine Bacteria (Auto) Hyaline Casts Urine Mucus Urine Opiates Screen Urine Methadone Screen Ur Barbiturates Screen Ur Phencyclidine Scrn Ur Amphetamines Screen U Benzodiazepines Scrn Urine Cocaine Screen U Marijuana (THC) Screen Drugs of Abuse Note 05/28/20 05/28/20 05/28/20 14:11 18:52 19:11 WBC RBC Hgb Hct MCV MCH MCHC RDW Plt Count Add Manual Diff Total Counted Seg Neuts % (Manual) Band Neutrophils % Lymphocytes % (Manual) Reactive Lymphs % (Man) Monocytes % (Manual) Eosinophils % (Manual) Basophils % (Manual) Metamyelocytes % Myelocytes % Promyelocytes % Blast Cells % Nucleated RBC % Seg Neutrophils # Man Band Neutrophils # Lymphocytes # (Manual) Abs React Lymphs (Man) Monocytes # (Manual) Eosinophils # (Manual) Basophils # (Manual) Metamyelocytes # Myelocytes # Promyelocytes # Blast Cells # WBC Morphology Hypersegmented Neuts Hyposegmented Neuts Hypogranular Neuts Smudge Cells Toxic Granulation Toxic Vacuolation Dohle Bodies Pelger-Huet Anomaly Dorys Rods Platelet Estimate Clumped Platelets Plt Clumps, EDTA Large Platelets Giant Platelets Platelet Satelliting Plt Morphology Comment RBC Morphology Dimorphic RBCs Polychromasia Hypochromasia Poikilocytosis Anisocytosis Microcytosis Macrocytosis Spherocytes Pappenheimer Bodies Sickle Cells Target Cells Tear Drop Cells Ovalocytes Helmet Cells Simon-[place] Bodies [place] Rings Megargel Cells Bite Cells Crenated Cell Elliptocytes Acanthocytes (Spur) Rouleaux Hemoglobin C Crystals Schistocytes Malaria parasites Varghese Bodies Hem Pathologist Commnt Sodium Potassium Chloride Carbon Dioxide Anion Gap BUN Creatinine Estimated GFR BUN/Creatinine Ratio Glucose Lactic Acid 1.40 Calcium Magnesium 2.00 Total Bilirubin AST ALT Alkaline Phosphatase Total Creatine Kinase CK-MB (CK-2) CK-MB (CK-2) Rel Index Troponin T Total Protein Albumin Albumin/Globulin Ratio Lipase TSH 4.930 H Free T4 0.86 Urine Color Urine Turbidity Urine pH Ur Specific [place] Urine Protein Urine Glucose (UA) Urine Ketones Urine Blood Urine Nitrite Urine Bilirubin Urine Urobilinogen Ur Leukocyte Esterase Urine WBC (Auto) Urine RBC (Auto) U Epithel Cells (Auto) Urine Bacteria (Auto) Hyaline Casts Urine Mucus Urine Opiates Screen Urine Methadone Screen Ur Barbiturates Screen Ur Phencyclidine Scrn Ur Amphetamines Screen U Benzodiazepines Scrn Urine Cocaine Screen U Marijuana (THC) Screen Drugs of Abuse Note 05/28/20 05/28/20 05/29/20 Unknown Unknown 04:58 WBC RBC Hgb Hct MCV MCH MCHC RDW Plt Count Add Manual Diff Total Counted Seg Neuts % (Manual) Band Neutrophils % Lymphocytes % (Manual) Reactive Lymphs % (Man) Monocytes % (Manual) Eosinophils % (Manual) Basophils % (Manual) Metamyelocytes % Myelocytes % Promyelocytes % Blast Cells % Nucleated RBC % Seg Neutrophils # Man Band Neutrophils # Lymphocytes # (Manual) Abs React Lymphs (Man) Monocytes # (Manual) Eosinophils # (Manual) Basophils # (Manual) Metamyelocytes # Myelocytes # Promyelocytes # Blast Cells # WBC Morphology Hypersegmented Neuts Hyposegmented Neuts Hypogranular Neuts Smudge Cells Toxic Granulation Toxic Vacuolation Dohle Bodies Pelger-Huet Anomaly Dorys Rods Platelet Estimate Clumped Platelets Plt Clumps, EDTA Large Platelets Giant Platelets Platelet Satelliting Plt Morphology Comment RBC Morphology Dimorphic RBCs Polychromasia Hypochromasia Poikilocytosis Anisocytosis Microcytosis Macrocytosis Spherocytes Pappenheimer Bodies Sickle Cells Target Cells Tear Drop Cells Ovalocytes Helmet Cells Simon-[place]ason Bodies [place] Rings Haylie Cells Bite Cells Crenated Cell Elliptocytes Acanthocytes (Spur) Rouleaux Hemoglobin C Crystals Schistocytes Malaria parasites Varghese Bodies Hem Pathologist Commnt Sodium 144 Potassium 4.5 Chloride 107.7 H Carbon Dioxide 15 L Anion Gap 26 BUN 37 H Creatinine 2.1 H Estimated GFR 38 BUN/Creatinine Ratio 18 Glucose 84 Lactic Acid Calcium 8.6 Magnesium Total Bilirubin AST ALT Alkaline Phosphatase Total Creatine Kinase CK-MB (CK-2) CK-MB (CK-2) Rel Index Troponin T Total Protein Albumin Albumin/Globulin Ratio Lipase TSH Free T4 Urine Color Yellow Urine Turbidity Clear Urine pH 5.0 Ur Specific [place] 1.017 Urine Protein <15 mg/dl Urine Glucose (UA) Neg Urine Ketones Tr Urine Blood Neg Urine Nitrite Neg Urine Bilirubin Neg Urine Urobilinogen 2.0 Ur Leukocyte Esterase Tr Urine WBC (Auto) 5.0 Urine RBC (Auto) 3.0 U Epithel Cells (Auto) 1.0 Urine Bacteria (Auto) 1+ Hyaline Casts 1 Urine Mucus Few Urine Opiates Screen Presumptive negative Urine Methadone Screen Presumptive negative Ur Barbiturates Screen Presumptive negative Ur Phencyclidine Scrn Presumptive negative Ur Amphetamines Screen Presumptive negative U Benzodiazepines Scrn Presumptive negative Urine Cocaine Screen Presumptive negative U Marijuana (THC) Screen Presumptive negative Drugs of Abuse Note Disclamer Assessment and Plan Patient appears clinically stable and is not having acute GI bleed requiring emergent intervention Therefore, I need to obtain information and consent from a family member in order to be able to obtain consent for EGD and colonoscopy for further evaluation of the patient's symptoms as well as management thereof In the meantime, I can supportive care with hydration monitoring serial CBCs tra nsfuse as needed goal hemoglobin 7 I sent differential diagnosis is lower GI source such as polyp, mass, AVM etc. therefore recommend PPI - Patient Problems (1) Microcytic anemia Current Visit: Yes Status: Acute (2) Anemia due to blood loss Current Visit: Yes Status: Acute (3) Rectal bleeding Current Visit: Yes Status: Acute
[2020-05-29 11:44] LABS: Hemoglobin 5.9 gm/dl (11.8-15.2)
[2020-05-29 11:45] LABS: Hematocrit 18.3 % (35.5-45.6)
[2020-05-29] MEDS ORDERED: SODIUM CHLORIDE 0.9% 500 ML 500 ML IV SCH (12:00)
[2020-05-29 14:24] LABS: Iron 21 ug/dL (49-181); Total Iron Binding Capacity 150 mcg/dL (250-450)
--- NOTE | 2020-05-29 16:28 | Event Note ---
Date: 05/29/20 spoke with family member, Melquiades Stuart at [phone] and got permission for colonoscopy apparently patient with aggressive prostate CA, so that may be contributing factor
[2020-05-29] MEDS ORDERED: POLYETHYLENE GLYCOL/ELECT SOLN 4000 ML PO SCH (18:24)
[2020-05-29] MEDS ORDERED: POLYETHYLENE GLYCOL/ELECT SOLN 4000 ML PO ONE (18:24)
[2020-05-30 05:03] LABS: Hematocrit 30.6 % (35.5-45.6); Hemoglobin 10.2 gm/dl (11.8-15.2); Mean Corpuscular HGB Conc 33 % (32-34); Mean Corpuscular Volume 80 fl (84-94); Platelet Count 202 K/mm3 (140-440); Red Blood Count 3.83 M/mm3 (3.65-5.03)
[2020-05-30 05:08] LABS: Red Cell Distribution Width 33.4 % (13.2-15.2)
[2020-05-30 05:12] LABS: Calcium 8.3 mg/dL (8.4-10.2)
[2020-05-30 06:31] LABS: Hematocrit 30.6 % (35.5-45.6); Hemoglobin 10.2 gm/dl (11.8-15.2); Mean Corpuscular HGB Conc 33 % (32-34); Mean Corpuscular Volume 80 fl (84-94); Red Blood Count 3.83 M/mm3 (3.65-5.03); Red Cell Distribution Width 33.4 % (13.2-15.2)
[2020-05-30 06:32] LABS: Basophils % (Auto) 0.4 % (0.0-1.8); Eosinophils % (Auto) 0.1 % (0.0-4.3); Mean Platelet Volume 7.9 fl (6-12); Monocytes # (Auto) 0.4 K/mm3 (0.0-0.8); Monocytes % (Auto) 6.5 % (0.0-7.3); Platelet Count 202 K/mm3 (140-440)
--- NOTE | 2020-05-30 09:00 | Progress Note ---
Assessment and Plan Assessment and plan: 75 YO Male with Vascular Dementia, Cerebral Atherosclerosis presents to ED for evaluation. Patient is confused and lethargic and unable to provide detailed history at the time of my evaluation. Patient history taken from EMS, ED staff, as well as friends who are at the bedside during exam and interview. As per family and friends, the patient has experienced increased confusion and decreased oral intake over the past 3 days since discharge home from a assisted facility. Patient is currently bedbound, nonambulatory, requires 6/6 assistance with activities of daily living, and has a palliative performance score 30%. EMS was notified and upon arrival the patient was found to be in distress and subsequently transported to [facility] for further care and evaluation of the aforementioned symptoms. Patient seen and evaluated in the emergency department. All lab and imaging studies reviewed. Patient found to have metabolic encephalopathy, hypotension, metabolic acidosis, acute kidney injury with concomitant volume depletion and acute tubular necrosis, as well as hypotension with the Bystolic blood pressure in the 70s.. Patient treated with IV fluid resuscitation therapy with mild improvement in systolic blood pressure. Patient admitted to telemetry due to increased risk of multisystem organ failure. No prior admission for review. No medication listed at time of admission for reconciliation. Advanced care planning conducted in ED. Patient is confused and lethargic at the time of my evaluation but the patient has a positive gag reflex and is able to protect his airway without difficulty. Severe anemia -Hemoglobin was 7.1 yesterday, will check hemoglobin today -Anemia work-up -GI wants to do EGD/colonoscopy but could not get any family member to sign the consent -Repeat hemoglobin this morning is 5.9 and will transfuse 2 units of blood 05/30/2020 -Hemoglobin this morning is 10.1 -GI will do colonoscopy today -Speech therapy evaluation placed (1) Metabolic encephalopathy Current Visit: Yes Status: Acute Plan to address problem: CT head, neuro check, aspiration precautions, fall precautions, IV fluid resuscitation therapy, supportive care. Patient is calm and cooperative Patient is demented (2) Metabolic acidosis Current Visit: Yes Status: Acute Plan to address problem: IV fluid resuscitation therapy, IV bicarbonate therapy, supportive care. (3) Acute kidney injury (PATO) with acute tubular necrosis (ATN) Current Visit: Yes Status: Acute Plan to address problem: IV fluid resuscitation therapy, monitor urine output every shift, avoid nephrotoxic agents. Patient has history of prostate cancer Creatinine is now significantly improved We will get nephrology consult (4) Volume depletion Current Visit: Yes Status: Acute Plan to address problem: IV fluid resuscitation therapy, monitor urine output every shift, repeat BMP in a.m. (5) Vascular dementia Current Visit: Yes Status: Acute Qualifiers: Dementia behavioral disturbance: without behavioral disturbance Qualified Code(s): F01.50 - Vascular dementia without behavioral disturbance Plan to address problem: Verbal prompting, verbal redirection, benzodiazepine therapy as needed, supportive care. (6) Cerebral atherosclerosis Current Visit: Yes Status: Acute Plan to address problem: Supportive care, continue medical management, risk factor reduction. (7) DVT prophylaxis Current Visit: Yes Status: Acute Plan to address problem: SCD to bilateral lower extremities while in bed (8) Advance care planning Current Visit: Yes Status: Acute Plan to address problem: Disease education conducted, patient is full code, prognosis discussed, patient family acknowledge understanding and agreement with care plan, +30 minutes. Disposition; continue inpatient care History Interval history: Patient was seen and evaluated this morning Patient is demented but calm and cooperative Hospitalist Physical - Physical exam Narrative exam: Not in cardiopulmonary distress. The patient appeared well nourished and normally developed. Vital signs as documented. Head exam is unremarkable. No scleral icterus . Neck is without jugular venous distension, thyromegaly, or carotid bruits. Lungs are clear to auscultation. Cardiac exam reveals regular rate and Rhythm. Abdominal exam reveals normal bowel sounds, nontender, no organomegaly. Extremities are nonedematous and both femoral and pedal pulses are normal. 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 No focal weakness. - Constitutional Vitals: Temp Pulse Resp BP Pulse Ox 97.4 F L 69 18 93/51 94 05/30/20 02:40 05/30/20 04:19 05/30/20 02:40 05/30/20 02:40 05/30/20 02:40 General appearance: Present: mild distress HEART Score - HEART Score Troponin: Troponin T < 0.010 ng/mL (0.00-0.029) 05/28/20 14:11 Results - Labs CBC & Chem 7: 05/30/20 05:00 05/30/20 04:14 Labs: Laboratory Last Values WBC 5.8 K/mm3 (4.5-11.0) 05/30/20 05:00 RBC 3.83 M/mm3 (3.65-5.03) 05/30/20 05:00 Hgb 10.2 gm/dl (11.8-15.2) L 05/30/20 05:00 Hct 30.6 % (35.5-45.6) L 05/30/20 05:00 MCV 80 fl (84-94) L 05/30/20 05:00 MCH 27 pg (28-32) L 05/30/20 05:00 MCHC 33 % (32-34) 05/30/20 05:00 RDW 33.4 % (13.2-15.2) H 05/30/20 05:00 Plt Count 202 K/mm3 (140-440) 05/30/20 05:00 Lymph % (Auto) 34.0 % (13.4-35.0) 05/30/20 05:00 [place] % (Auto) 6.5 % (0.0-7.3) 05/30/20 05:00 Eos % (Auto) 0.1 % (0.0-4.3) 05/30/20 05:00 Baso % (Auto) 0.4 % (0.0-1.8) 05/30/20 05:00 Lymph # (Auto) 2.0 K/mm3 (1.2-5.4) 05/30/20 05:00 [place] # (Auto) 0.4 K/mm3 (0.0-0.8) 05/30/20 05:00 Eos # (Auto) 0.0 K/mm3 (0.0-0.4) 05/30/20 05:00 Baso # (Auto) 0.0 K/mm3 (0.0-0.1) 05/30/20 05:00 Add Manual Diff Complete 05/28/20 14:11 Total Counted Cancelled 05/30/20 04:14 Seg Neutrophils % 59.0 % (40.0-70.0) 05/30/20 05:00 Seg Neuts % (Manual) Cancelled 05/30/20 04:14 Band Neutrophils % Cancelled 05/30/20 04:14 Lymphocytes % (Manual) Cancelled 05/30/20 04:14 Reactive Lymphs % (Man) Cancelled 05/30/20 04:14 Monocytes % (Manual) Cancelled 05/30/20 04:14 Eosinophils % (Manual) Cancelled 05/30/20 04:14 Basophils % (Manual) Cancelled 05/30/20 04:14 Metamyelocytes % Cancelled 05/30/20 04:14 Myelocytes % Cancelled 05/30/20 04:14 Promyelocytes % Cancelled 05/30/20 04:14 Blast Cells % Cancelled 05/30/20 04:14 Nucleated RBC % Cancelled 05/30/20 04:14 Seg Neutrophils # 3.4 K/mm3 (1.8-7.7) 05/30/20 05:00 Seg Neutrophils # Man Cancelled 05/30/20 04:14 Band Neutrophils # Cancelled 05/30/20 04:14 Lymphocytes # (Manual) Cancelled 05/30/20 04:14 Abs React Lymphs (Man) Cancelled 05/30/20 04:14 Monocytes # (Manual) Cancelled 05/30/20 04:14 Eosinophils # (Manual) Cancelled 05/30/20 04:14 Basophils # (Manual) Cancelled 05/30/20 04:14 Metamyelocytes # Cancelled 05/30/20 04:14 Myelocytes # Cancelled 05/30/20 04:14 Promyelocytes # Cancelled 05/30/20 04:14 Blast Cells # Cancelled 05/30/20 04:14 WBC Morphology Cancelled 05/30/20 04:14 Hypersegmented Neuts Cancelled 05/30/20 04:14 Hyposegmented Neuts Cancelled 05/30/20 04:14 Hypogranular Neuts Cancelled 05/30/20 04:14 Hypersegmented Polys Cancelled 05/30/20 04:14 Smudge Cells Cancelled 05/30/20 04:14 Toxic Granulation Cancelled 05/30/20 04:14 Toxic Vacuolation Cancelled 05/30/20 04:14 Dohle Bodies Cancelled 05/30/20 04:14 Pelger-Huet Anomaly Cancelled 05/30/20 04:14 Odrys Rods Cancelled 05/30/20 04:14 Platelet Estimate Cancelled 05/30/20 04:14 Clumped Platelets Cancelled 05/30/20 04:14 Plt Clumps, EDTA Cancelled 05/30/20 04:14 Large Platelets Cancelled 05/30/20 04:14 Giant Platelets Cancelled 05/30/20 04:14 Platelet Satelliting Cancelled 05/30/20 04:14 Plt Morphology Comment Cancelled 05/30/20 04:14 RBC Morphology Cancelled 05/30/20 04:14 Dimorphic RBCs Cancelled 05/30/20 04:14 Polychromasia Cancelled 05/30/20 04:14 Hypochromasia Cancelled 05/30/20 04:14 Poikilocytosis Cancelled 05/30/20 04:14 Basophilic Stippling Cancelled 05/30/20 04:14 Anisocytosis Cancelled 05/30/20 04:14 Microcytosis Cancelled 05/30/20 04:14 Macrocytosis Cancelled 05/30/20 04:14 Spherocytes Cancelled 05/30/20 04:14 Pappenheimer Bodies Cancelled 05/30/20 04:14 Sickle Cells Cancelled 05/30/20 04:14 Target Cells Cancelled 05/30/20 04:14 Tear Drop Cells Cancelled 05/30/20 04:14 Ovalocytes Cancelled 05/30/20 04:14 Stomatocytes Cancelled 05/30/20 04:14 Helmet Cells Cancelled 05/30/20 04:14 Simon-Dolores Bodies Cancelled 05/30/20 04:14 Benld Rings Cancelled 05/30/20 04:14 Nemo Cells Cancelled 05/30/20 04:14 Bite Cells Cancelled 05/30/20 04:14 Crenated Cell Cancelled 05/30/20 04:14 Elliptocytes Cancelled 05/30/20 04:14 Acanthocytes (Spur) Cancelled 05/30/20 04:14 Rouleaux Cancelled 05/30/20 04:14 Hemoglobin C Crystals Cancelled 05/30/20 04:14 Schistocytes Cancelled 05/30/20 04:14 Malaria parasites Cancelled 05/30/20 04:14 Varghese Bodies Cancelled 05/30/20 04:14 Hem Pathologist Commnt Cancelled 05/30/20 04:14 Sodium 145 mmol/L (137-145) 05/30/20 04:14 Potassium 4.0 mmol/L (3.6-5.0) 05/30/20 04:14 Chloride 109.6 mmol/L (98-107) H 05/30/20 04:14 Carbon Dioxide 16 mmol/L (22-30) L 05/30/20 04:14 Anion Gap 23 mmol/L 05/30/20 04:14 BUN 35 mg/dL (9-20) H 05/30/20 04:14 Creatinine 2.0 mg/dL (0.8-1.3) H 05/30/20 04:14 Estimated GFR 40 ml/min 05/30/20 04:14 BUN/Creatinine Ratio 18 % 05/30/20 04:14 Glucose 80 mg/dL (75-100) 05/30/20 04:14 Lactic Acid 1.40 mmol/L (0.7-2.0) 05/28/20 18:52 Calcium 8.3 mg/dL (8.4-10.2) L 05/30/20 04:14 Magnesium 2.00 mg/dL (1.7-2.3) 05/28/20 14:11 Iron 21 ug/dL (49-181) L 05/29/20 04:54 TIBC 150 mcg/dL (250-450) L 05/29/20 04:54 Ferritin 993.6 ng/mL (30.0-300.0) H 05/29/20 10:51 Total Bilirubin 0.40 mg/dL (0.1-1.2) 05/28/20 14:11 AST 40 units/L (5-40) 05/28/20 14:11 ALT 6 units/L (7-56) L 05/28/20 14:11 Alkaline Phosphatase 82 units/L (35-129) 05/28/20 14:11 Total Creatine Kinase 310 units/L (55-170) H 05/28/20 14:11 CK-MB (CK-2) 2.1 ng/mL (0.0-4.0) 05/28/20 14:11 CK-MB (CK-2) Rel Index 0.6 (0-4) 05/28/20 14:11 Troponin T < 0.010 ng/mL (0.00-0.029) 05/28/20 14:11 Total Protein 7.0 g/dL (6.3-8.2) 05/28/20 14:11 Albumin 2.6 g/dL (3.9-5) L 05/28/20 14:11 Albumin/Globulin Ratio 0.6 % 05/28/20 14:11 Lipase 48 units/L (13-60) 05/28/20 14:11 Vitamin B12 1248 pg/mL (211-911) H 05/29/20 10:51 Folate 2.84 ng/mL (7.3-26.0) L 05/29/20 10:51 TSH 4.930 mlU/mL (0.270-4.200) H 05/28/20 19:11 Free T4 0.86 ng/dL (0.76-1.46) 05/28/20 19:11 Urine Color Yellow (Yellow) 05/28/20 Unknown Urine Turbidity Clear (Clear) 05/28/20 Unknown Urine pH 5.0 (5.0-7.0) 05/28/20 Unknown Ur Specific [place] 1.017 (1.003-1.030) 05/28/20 Unknown Urine Protein <15 mg/dl mg/dL (Negative) 05/28/20 Unknown Urine Glucose (UA) Neg mg/dL (Negative) 05/28/20 Unknown Urine Ketones Tr mg/dL (Negative) 05/28/20 Unknown Urine Blood Neg (Negative) 05/28/20 Unknown Urine Nitrite Neg (Negative) 05/28/20 Unknown Urine Bilirubin Neg (Negative) 05/28/20 Unknown Urine Urobilinogen 2.0 mg/dL (<2.0) 05/28/20 Unknown Ur Leukocyte Esterase Tr (Negative) 05/28/20 Unknown Urine WBC (Auto) 5.0 /HPF (0.0-6.0) 05/28/20 Unknown Urine RBC (Auto) 3.0 /HPF (0.0-6.0) 05/28/20 Unknown U Epithel Cells (Auto) 1.0 /HPF (0-13.0) 05/28/20 Unknown Urine Bacteria (Auto) 1+ /HPF (Negative) 05/28/20 Unknown Hyaline Casts 1 /LPF 05/28/20 Unknown Urine Mucus Few /HPF 05/28/20 Unknown Urine Opiates Screen Presumptive negative 05/28/20 Unknown Urine Methadone Screen Presumptive negative 05/28/20 Unknown Ur Barbiturates Screen Presumptive negative 05/28/20 Unknown Ur Phencyclidine Scrn Presumptive negative 05/28/20 Unknown Ur Amphetamines Screen Presumptive negative 05/28/20 Unknown U Benzodiazepines Scrn Presumptive negative 05/28/20 Unknown Urine Cocaine Screen Presumptive negative 05/28/20 Unknown U Marijuana (THC) Screen Presumptive negative 05/28/20 Unknown Drugs of Abuse Note Disclamer 05/28/20 Unknown Blood Type B POSITIVE 05/29/20 14:29 Antibody Screen Negative 05/29/20 14:29 Crossmatch See Detail 05/29/20 14:29 Microbiology: Microbiology 05/30/20 Unknown Stool Stool Occult Blood (YADY) - Final 05/28/20 18:52 Peripheral/Venous Blood Culture - Preliminary NO GROWTH AFTER 24 HOURS 05/28/20 18:52 Peripheral/Venous Blood Culture - Preliminary NO GROWTH AFTER 24 HOURS Rodriguez/IV: Voiding Method Incontinent IV Catheter Type [Right Peripheral IV Antecubital] Active Medications - Current Medications Current Medications: Generic Name Dose Route Start Last Admin Trade Name Freq PRN Reason Stop Dose Admin Acetaminophen 650 mg 05/28/20 18:59 Tylenol PO Q4H PRN Pain MILD(1-3)/Fever >100.5/SCANLON Heparin Sodium (Porcine) 5,000 unit 05/28/20 22:00 05/29/20 22:08 Heparin SUB-Q 5,000 unit Q12HR GISELA Administration Sodium Chloride 1,000 mls @ 100 mls/hr 05/28/20 19:00 05/29/20 05:35 Nacl 0.9% 1000 Ml IV 100 mls/hr DIRECT GISELA Administration Ondansetron HCl 4 mg 05/28/20 18:59 Zofran IV Q8H PRN Nausea And Vomiting Sodium Chloride 10 ml 05/28/20 22:00 05/29/20 22:08 Sodium Chloride Flush Syringe 10 Ml IV 10 ml BID GISELA Administration Sodium Chloride 10 ml 05/28/20 18:59 Sodium Chloride Flush Syringe 10 Ml IV PRN PRN LINE FLUSH
[2020-05-30] MEDS: HEPARIN 5,000 UNIT/1 ML VIAL SUB-Q SCH ×2 (09:54→21:18)
[2020-05-30] MEDS: SODIUM BICARBONATE 150 MEQ in DEXTROSE 5% IN WATER 1,000 ML IV SCH (11:53)
[2020-05-30 12:51] LABS: ABG Base Excess -8.6 mmol/L (-2.0-3.0); ABG HCO3 15.7 mmol/L (20.0-26.0); ABG Methemoglobin 0.6 % (0.0-1.5); ABG Oxygen Saturation 97.8 % (95.0-99.0); ABG PH 7.352 pH Units (7.350-7.450); ABG PO2 106.4 mm Hg (80.0-90.0)
[2020-05-30] MEDS ORDERED: SODIUM CHLORIDE 0.9% 1000 ML 1,000 ML ONE (14:15)
[2020-05-30] MEDS ORDERED: WATER FOR IRRIG STERILE 250 ML BOTTLE IR ONE ×2 (14:16)
[2020-05-30] MEDS ORDERED: WATER FOR IRRIG STERILE 1,000 ML BOTTLE ONE (14:18)
--- NOTE | 2020-05-30 15:13 | Anesthesia Day of Surgery ---
Anesthesia Day of Surgery - Day of Surgery Patient Examined: Yes Patient H&P Reviewed: Yes Patient is NPO: Yes
--- NOTE | 2020-05-30 15:17 | Anesthesia Consultation ---
Anesthesia Consult and Med Hx Date of service: 05/30/20 - Airway Anesthetic Teeth Evaluation: Good ROM Head & Neck: Adequate Mental/Hyoid Distance: Adequate Mallampati Class: Class III Intubation Access Assessment: Probably Good - Pre-Operative Health Status ASA Pre-Surgery Classification: ASA4 Proposed Anesthetic Plan: MAC - Cardiovascular System Hx Cardia Arrhythmia: Yes (On monitor-varying rate-PAC's. ?A-Flutter. ECHO [id number] EF 50-55%) - Central Nervous System Hx Neuromuscular Disorder: Yes (Vascular Dementia, cerebral atherelosclerosis) - Endocrine Hx Renal Disease: Yes (PATO) - Hematic Hx Anemia: Yes - Other Systems Hx Cancer: Yes (Aggressive prostate cancer) - Additional Comments Anesthesia Medical History Comments: From ED note: 75 YO Male with Vascular Dementia, Cerebral Atherosclerosis presents to ED for evaluation. Patient is confused and lethargic and unable to provide detailed history. Patient history taken from EMS, ED staff, as well as friends who are at the bedside during exam and interview. As per family and friends, the patient has experienced increased confusion and decreased oral intake over the past 3 days since discharge home from a care home facility. Patient is currently bedbound, nonambulatory, requires 6/6 assistance with activities of daily living, and has a palliative performance score 30%. EMS was notified and upon arrival the patient was found to be in distress and subsequently transported to [facility] for further care and evaluation of the aforementioned symptoms. Patient seen and evaluated in the emergency department. Patient found to have metabolic encephalopathy, hypotension, metabolic acidosis, acute kidney injury with concomitant volume depletion and acute tubular necrosis, as well as hypotension with the Bystolic blood pressure in the 70s.. Patient treated with IV fluid resuscitation therapy with mild improvement in systolic blood pressure. Patient admitted to telemetry due to increased risk of multisystem organ failure. No prior admission for review. No medication listed at time of admission for reconciliation. Advanced care planning conducted in ED. Patient is confused and lethargic at the time of my evaluation but the patient has a positive gag reflex and is able to protect his airway without difficulty. Severe anemia
--- NOTE | 2020-05-30 16:25 | Event Note ---
Date: 05/30/20 Patient was gone for endoscopy. Lab work reviewed. Trend hgb, transfus for hgb < 7 Check ABG/lactate. Start IV bicarb drip. check ultrasound. Strict I's and O's. Kelly Byrd MD
[2020-05-30] MEDS ORDERED: propofoL 200 MG/20 ML VIAL IV ONE (16:27)
[2020-05-30] MEDS ORDERED: PHENYLEPHRINE/NS 1,000 MCG/10 ML SYRINGE (OR USE) IV ONE (16:42)
--- NOTE | 2020-05-30 16:48 | Operative Report ---
Operative Report Operative Report: DOS: 05/30/2020 SURGEON: Dorian Marie MD Flex sigmoidoscopy REPORT PREOPERATIVE AND POSTOPERATIVE DIAGNOSIS: rectal bleeding DESCRIPTION OF PROCEDURE: The colonoscope was passed to the mid rectum but could not advance further due to obstructing mass. At the end of procedure, the scope was cleaned using normal technique. Vital signs monitored continuously throughout. SEDATION: Provided by Anesthesiology Services. Quality of the prep was limited COMPLICATIONS: None. ESTIMATED BLOOD LOSS: 5cc FINDINGS: Entire rectum consisted of heaped up ulcerated actively oozing tissue highly concerning for malignancy, additionally this was causing obstruction and was unable to pass the lesion. Multiple cold forceps biopsies obtained RECOMMENDATIONS: * This lesion is the source of the patient's bleeding. Highly concerning for malignancy. If indeed is malignant, would recommend considering palliative care pending oncology input as there is no endoscopic therapy available for this type of lesion GI will sign off, please call back with questions or concerns
--- NOTE | 2020-05-30 19:22 | Post Anesthesia Evaluation ---
- Post Anesthesia Evaluation Patient Participated: Yes Airway Patent: Yes Stable Respiratory Function: Yes Nausea/Vomiting: No Temp > 96.8F: Yes Pain Manageable: Yes Adequeate Hydration: Yes Anesthesia Complications: No Block Receding Appropriately: Not Applicable Patient on Ventilator: No
[2020-05-31] MEDS: SODIUM BICARBONATE 150 MEQ in DEXTROSE 5% IN WATER 1,000 ML IV SCH (06:32)
--- NOTE | 2020-05-31 08:34 | Cat Scan Report ---
CT ABDOMEN AND PELVIS WITHOUT CONTRAST HISTORY: rectal mass. Generalized abdominal pain and swelling COMPARISON: None. TECHNIQUE: CT images of the abdomen and pelvis were obtained without administration of intravenous co ntrast. All CT scans at this location are performed using CT dose reduction for ALARA by means of au tomated exposure control. FINDINGS: Lungs/bones: There is mild bibasilar atelectasis and cardiomegaly. Degenerative changes are present in the spine and pelvis, with a rounded bone lesion which is slightly hyperdense in the L5 vertebral body measuring 1.4 cm in maximal dimension on image #180 of series #2. No pathologic fracture identif ied. Abdomen/pelvis: There is significant generalized body wall edema and also scrotal edema. Severe meta static peritoneal and retroperitoneal adenopathy is present, with large danita conglomerates distortin g anatomy and compressing various structures including the right mid ureter resulting in moderate rig ht-sided hydronephrosis. The liver is slightly heterogeneous and this is a noncontrast examination, significantly limiting giovana luation for any potential metastatic lesions. The gallbladder contains minimal layering cholelithiasi s as seen on image #54 of series #2. The spleen, pancreas, adrenals, and proximal GI tract are unrema rkable. The rectum demonstrates diffuse circumferential wall thickening and masslike nodularity especially po sterior right of midline, again with extensive pathologic adenopathy which also extends to both iliac chains and both inguinal regions. No bowel obstruction. There are occasional colonic diverticula wit h no acute inflammatory change. IMPRESSION: 1. 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 2. Moderate right-sided hydronephrosis caused by mass effect from retroperitoneal adenopathy at the l evel of the mid right ureter. 3. Moderate generalized anasarca and small volume ascites. Signer Name: Sawyer Yancey MD Signed: 05/31/2020 8:30 AM Workstation Name: [id number]
[2020-05-31 09:15] LABS: Hematocrit 31.9 % (35.5-45.6); Hemoglobin 10.1 gm/dl (11.8-15.2); Mean Corpuscular HGB Conc 32 % (32-34); Mean Corpuscular Volume 83 fl (84-94); Platelet Count 158 K/mm3 (140-440); Red Blood Count 3.84 M/mm3 (3.65-5.03)
--- NOTE | 2020-05-31 09:18 | Progress Note ---
Assessment and Plan Assessment and plan: 75 YO Male with Vascular Dementia, Cerebral Atherosclerosis presents to ED for evaluation. Patient is confused and lethargic and unable to provide detailed history at the time of my evaluation. Patient history taken from EMS, ED staff, as well as friends who are at the bedside during exam and interview. As per family and friends, the patient has experienced increased confusion and decreased oral intake over the past 3 days since discharge home from a senior living facility. Patient is currently bedbound, nonambulatory, requires 6/6 assistance with activities of daily living, and has a palliative performance score 30%. EMS was notified and upon arrival the patient was found to be in distress and subsequently transported to [facility] for further care and evaluation of the aforementioned symptoms. Patient seen and evaluated in the emergency department. All lab and imaging studies reviewed. Patient found to have metabolic encephalopathy, hypotension, metabolic acidosis, acute kidney injury with concomitant volume depletion and acute tubular necrosis, as well as hypotension with the Bystolic blood pressure in the 70s.. Patient treated with IV fluid resuscitation therapy with mild improvement in systolic blood pressure. Patient admitted to telemetry due to increased risk of multisystem organ failure. No prior admission for review. No medication listed at time of admission for reconciliation. Advanced care planning conducted in ED. Patient is confused and lethargic at the time of my evaluation but the patient has a positive gag reflex and is able to protect his airway without difficulty. Severe anemia -Hemoglobin was 7.1 yesterday, will check hemoglobin today -Anemia work-up -GI wants to do EGD/colonoscopy but could not get any family member to sign the consent -Repeat hemoglobin this morning is 5.9 and will transfuse 2 units of blood 05/30/2020 -Hemoglobin this morning is 10.1 -GI will do colonoscopy today -Speech therapy evaluation placed Rectal mass, could be metastatic from the prostate -Could not advance colonoscope because of the mass -Oncology consult placed (1) Metabolic encephalopathy Current Visit: Yes Status: Acute Plan to address problem: CT head, neuro check, aspiration precautions, fall precautions, IV fluid resuscitation therapy, supportive care. Patient is calm and cooperative Patient is demented (2) Metabolic acidosis Current Visit: Yes Status: Acute Plan to address problem: IV fluid resuscitation therapy, IV bicarbonate therapy, supportive care. (3) Acute kidney injury (PATO) with acute tubular necrosis (ATN) Current Visit: Yes Status: Acute Plan to address problem: IV fluid resuscitation therapy, monitor urine output every shift, avoid nephrotoxic agents. Patient has history of prostate cancer Creatinine is now significantly improved We will get nephrology consult (4) Volume depletion Current Visit: Yes Status: Acute Plan to address problem: IV fluid resuscitation therapy, monitor urine output every shift, repeat BMP in a.m. (5) Vascular dementia Current Visit: Yes Status: Acute Qualifiers: Dementia behavioral disturbance: without behavioral disturbance Qualified Code(s): F01.50 - Vascular dementia without behavioral disturbance Plan to address problem: Verbal prompting, verbal redirection, benzodiazepine therapy as needed, supportive care. (6) Cerebral atherosclerosis Current Visit: Yes Status: Acute Plan to address problem: Supportive care, continue medical management, risk factor reduction. (7) DVT prophylaxis Current Visit: Yes Status: Acute Plan to address problem: SCD to bilateral lower extremities while in bed (8) Advance care planning Current Visit: Yes Status: Acute Plan to address problem: Disease education conducted, patient is full code, prognosis discussed, patient family acknowledge understanding and agreement with care plan, +30 minutes. Disposition; continue inpatient care History Interval history: Patient was seen and evaluated this morning Patient is demented but calm and cooperative Hospitalist Physical - Physical exam Narrative exam: Not in cardiopulmonary distress. The patient appeared well nourished and normally developed. Vital signs as documented. Head exam is unremarkable. No scleral icterus . Neck is without jugular venous distension, thyromegaly, or carotid bruits. Lungs are clear to auscultation. Cardiac exam reveals regular rate and Rhythm. Abdominal exam reveals normal bowel sounds, nontender, no organomegaly. Extremities are nonedematous and both femoral and pedal pulses are normal. COMPLIANCE PROFESSIONAL: Alert, demented. No focal weakness. - Constitutional Vitals: Temp Pulse Resp BP Pulse Ox 97.9 F 69 16 101/60 94 05/31/20 07:40 05/31/20 07:40 05/31/20 07:40 05/31/20 07:40 05/31/20 08:35 General appearance: Present: mild distress HEART Score - HEART Score Troponin: Troponin T < 0.010 ng/mL (0.00-0.029) 05/28/20 14:11 Results - Labs CBC & Chem 7: 05/30/20 05:00 05/31/20 08:39 Labs: Laboratory Last Values WBC 5.8 K/mm3 (4.5-11.0) 05/30/20 05:00 RBC 3.83 M/mm3 (3.65-5.03) 05/30/20 05:00 Hgb 10.2 gm/dl (11.8-15.2) L 05/30/20 05:00 Hct 30.6 % (35.5-45.6) L 05/30/20 05:00 MCV 80 fl (84-94) L 05/30/20 05:00 MCH 27 pg (28-32) L 05/30/20 05:00 MCHC 33 % (32-34) 05/30/20 05:00 RDW 33.4 % (13.2-15.2) H 05/30/20 05:00 Plt Count 202 K/mm3 (140-440) 05/30/20 05:00 Lymph % (Auto) 34.0 % (13.4-35.0) 05/30/20 05:00 Wilcox % (Auto) 6.5 % (0.0-7.3) 05/30/20 05:00 Eos % (Auto) 0.1 % (0.0-4.3) 05/30/20 05:00 Baso % (Auto) 0.4 % (0.0-1.8) 05/30/20 05:00 Lymph # (Auto) 2.0 K/mm3 (1.2-5.4) 05/30/20 05:00 Wilcox # (Auto) 0.4 K/mm3 (0.0-0.8) 05/30/20 05:00 Eos # (Auto) 0.0 K/mm3 (0.0-0.4) 05/30/20 05:00 Baso # (Auto) 0.0 K/mm3 (0.0-0.1) 05/30/20 05:00 Add Manual Diff Complete 05/28/20 14:11 Total Counted Cancelled 05/30/20 04:14 Seg Neutrophils % 59.0 % (40.0-70.0) 05/30/20 05:00 Seg Neuts % (Manual) Cancelled 05/30/20 04:14 Band Neutrophils % Cancelled 05/30/20 04:14 Lymphocytes % (Manual) Cancelled 05/30/20 04:14 Reactive Lymphs % (Man) Cancelled 05/30/20 04:14 Monocytes % (Manual) Cancelled 05/30/20 04:14 Eosinophils % (Manual) Cancelled 05/30/20 04:14 Basophils % (Manual) Cancelled 05/30/20 04:14 Metamyelocytes % Cancelled 05/30/20 04:14 Myelocytes % Cancelled 05/30/20 04:14 Promyelocytes % Cancelled 05/30/20 04:14 Blast Cells % Cancelled 05/30/20 04:14 Nucleated RBC % Cancelled 05/30/20 04:14 Seg Neutrophils # 3.4 K/mm3 (1.8-7.7) 05/30/20 05:00 Seg Neutrophils # Man Cancelled 05/30/20 04:14 Band Neutrophils # Cancelled 05/30/20 04:14 Lymphocytes # (Manual) Cancelled 05/30/20 04:14 Abs React Lymphs (Man) Cancelled 05/30/20 04:14 Monocytes # (Manual) Cancelled 05/30/20 04:14 Eosinophils # (Manual) Cancelled 05/30/20 04:14 Basophils # (Manual) Cancelled 05/30/20 04:14 Metamyelocytes # Cancelled 05/30/20 04:14 Myelocytes # Cancelled 05/30/20 04:14 Promyelocytes # Cancelled 05/30/20 04:14 Blast Cells # Cancelled 05/30/20 04:14 WBC Morphology Cancelled 05/30/20 04:14 Hypersegmented Neuts Cancelled 05/30/20 04:14 Hyposegmented Neuts Cancelled 05/30/20 04:14 Hypogranular Neuts Cancelled 05/30/20 04:14 Hypersegmented Polys Cancelled 05/30/20 04:14 Smudge Cells Cancelled 05/30/20 04:14 Toxic Granulation Cancelled 05/30/20 04:14 Toxic Vacuolation Cancelled 05/30/20 04:14 Dohle Bodies Cancelled 05/30/20 04:14 Pelger-Huet Anomaly Cancelled 05/30/20 04:14 Dorys Rods Cancelled 05/30/20 04:14 Platelet Estimate Cancelled 05/30/20 04:14 Clumped Platelets Cancelled 05/30/20 04:14 Plt Clumps, EDTA Cancelled 05/30/20 04:14 Large Platelets Cancelled 05/30/20 04:14 Giant Platelets Cancelled 05/30/20 04:14 Platelet Satelliting Cancelled 05/30/20 04:14 Plt Morphology Comment Cancelled 05/30/20 04:14 RBC Morphology Cancelled 05/30/20 04:14 Dimorphic RBCs Cancelled 05/30/20 04:14 Polychromasia Cancelled 05/30/20 04:14 Hypochromasia Cancelled 05/30/20 04:14 Poikilocytosis Cancelled 05/30/20 04:14 Basophilic Stippling Cancelled 05/30/20 04:14 Anisocytosis Cancelled 05/30/20 04:14 Microcytosis Cancelled 05/30/20 04:14 Macrocytosis Cancelled 05/30/20 04:14 Spherocytes Cancelled 05/30/20 04:14 Pappenheimer Bodies Cancelled 05/30/20 04:14 Sickle Cells Cancelled 05/30/20 04:14 Target Cells Cancelled 05/30/20 04:14 Tear Drop Cells Cancelled 05/30/20 04:14 Ovalocytes Cancelled 05/30/20 04:14 Stomatocytes Cancelled 05/30/20 04:14 Helmet Cells Cancelled 05/30/20 04:14 Simon-Vashon Bodies Cancelled 05/30/20 04:14 [place] Rings Cancelled 05/30/20 04:14 Haylie Cells Cancelled 05/30/20 04:14 Bite Cells Cancelled 05/30/20 04:14 Crenated Cell Cancelled 05/30/20 04:14 Elliptocytes Cancelled 05/30/20 04:14 Acanthocytes (Spur) Cancelled 05/30/20 04:14 Rouleaux Cancelled 05/30/20 04:14 Hemoglobin C Crystals Cancelled 05/30/20 04:14 Schistocytes Cancelled 05/30/20 04:14 Malaria parasites Cancelled 05/30/20 04:14 Varghese Bodies Cancelled 05/30/20 04:14 Hem Pathologist Commnt Cancelled 05/30/20 04:14 ABG pH 7.352 pH Units (7.350-7.450) 05/30/20 12:35 ABG pCO2 29.0 mm Hg 05/30/20 12:35 ABG pO2 106.4 mm Hg (80.0-90.0) H 05/30/20 12:35 ABG HCO3 15.7 mmol/L (20.0-26.0) L 05/30/20 12:35 ABG O2 Saturation 97.8 % (95.0-99.0) 05/30/20 12:35 ABG O2 Content 15.6 (0.0-44) 05/30/20 12:35 ABG Base Excess -8.6 mmol/L (-2.0-3.0) L 05/30/20 12:35 ABG Hemoglobin 11.5 gm/dl (14.0-18.0) L 05/30/20 12:35 ABG Carboxyhemoglobin 1.4 % (0.0-5.0) 05/30/20 12:35 ABG Methemoglobin 0.6 % (0.0-1.5) 05/30/20 12:35 Oxyhemoglobin 95.9 % (95.0-99.0) 05/30/20 12:35 FiO2 21 % 05/30/20 12:35 Sodium 145 mmol/L (137-145) 05/30/20 04:14 Potassium 4.0 mmol/L (3.6-5.0) 05/30/20 04:14 Chloride 109.6 mmol/L (98-107) H 05/30/20 04:14 Carbon Dioxide 15 mmol/L (22-30) L 05/31/20 08:39 Anion Gap 23 mmol/L 05/30/20 04:14 BUN 35 mg/dL (9-20) H 05/30/20 04:14 Creatinine 2.0 mg/dL (0.8-1.3) H 05/30/20 04:14 Estimated GFR 40 ml/min 05/30/20 04:14 BUN/Creatinine Ratio 18 % 05/30/20 04:14 Glucose 95 mg/dL (75-100) 05/31/20 08:39 Lactic Acid 1.00 mmol/L (0.7-2.0) 05/30/20 10:10 Calcium 8.3 mg/dL (8.4-10.2) L 05/30/20 04:14 Magnesium 2.00 mg/dL (1.7-2.3) 05/28/20 14:11 Iron 21 ug/dL (49-181) L 05/29/20 04:54 TIBC 150 mcg/dL (250-450) L 05/29/20 04:54 Ferritin 993.6 ng/mL (30.0-300.0) H 05/29/20 10:51 Total Bilirubin 0.40 mg/dL (0.1-1.2) 05/28/20 14:11 AST 40 units/L (5-40) 05/28/20 14:11 ALT 6 units/L (7-56) L 05/28/20 14:11 Alkaline Phosphatase 82 units/L (35-129) 05/28/20 14:11 Total Creatine Kinase 310 units/L (55-170) H 05/28/20 14:11 CK-MB (CK-2) 2.1 ng/mL (0.0-4.0) 05/28/20 14:11 CK-MB (CK-2) Rel Index 0.6 (0-4) 05/28/20 14:11 Troponin T < 0.010 ng/mL (0.00-0.029) 05/28/20 14:11 Total Protein 7.0 g/dL (6.3-8.2) 05/28/20 14:11 Albumin 2.6 g/dL (3.9-5) L 05/28/20 14:11 Albumin/Globulin Ratio 0.6 % 05/28/20 14:11 Lipase 48 units/L (13-60) 05/28/20 14:11 Vitamin B12 1248 pg/mL (211-911) H 05/29/20 10:51 Folate 2.84 ng/mL (7.3-26.0) L 05/29/20 10:51 TSH 4.930 mlU/mL (0.270-4.200) H 05/28/20 19:11 Free T4 0.86 ng/dL (0.76-1.46) 05/28/20 19:11 Urine Color Yellow (Yellow) 05/28/20 Unknown Urine Turbidity Clear (Clear) 05/28/20 Unknown Urine pH 5.0 (5.0-7.0) 05/28/20 Unknown Ur Specific Makinen 1.017 (1.003-1.030) 05/28/20 Unknown Urine Protein <15 mg/dl mg/dL (Negative) 05/28/20 Unknown Urine Glucose (UA) Neg mg/dL (Negative) 05/28/20 Unknown Urine Ketones Tr mg/dL (Negative) 05/28/20 Unknown Urine Blood Neg (Negative) 05/28/20 Unknown Urine Nitrite Neg (Negative) 05/28/20 Unknown Urine Bilirubin Neg (Negative) 05/28/20 Unknown Urine Urobilinogen 2.0 mg/dL (<2.0) 05/28/20 Unknown Ur Leukocyte Esterase Tr (Negative) 05/28/20 Unknown Urine WBC (Auto) 5.0 /HPF (0.0-6.0) 05/28/20 Unknown Urine RBC (Auto) 3.0 /HPF (0.0-6.0) 05/28/20 Unknown U Epithel Cells (Auto) 1.0 /HPF (0-13.0) 05/28/20 Unknown Urine Bacteria (Auto) 1+ /HPF (Negative) 05/28/20 Unknown Hyaline Casts 1 /LPF 05/28/20 Unknown Urine Mucus Few /HPF 05/28/20 Unknown Urine Opiates Screen Presumptive negative 05/28/20 Unknown Urine Methadone Screen Presumptive negative 05/28/20 Unknown Ur Barbiturates Screen Presumptive negative 05/28/20 Unknown Ur Phencyclidine Scrn Presumptive negative 05/28/20 Unknown Ur Amphetamines Screen Presumptive negative 05/28/20 Unknown U Benzodiazepines Scrn Presumptive negative 05/28/20 Unknown Urine Cocaine Screen Presumptive negative 05/28/20 Unknown U Marijuana (THC) Screen Presumptive negative 05/28/20 Unknown Drugs of Abuse Note Disclamer 05/28/20 Unknown Blood Type B POSITIVE 05/29/20 14:29 Antibody Screen Negative 05/29/20 14:29 Crossmatch See Detail 05/29/20 14:29 Microbiology: Microbiology 05/28/20 18:52 Peripheral/Venous Blood Culture - Preliminary NO GROWTH AFTER 48 HOURS 05/28/20 18:52 Peripheral/Venous Blood Culture - Preliminary NO GROWTH AFTER 48 HOURS 05/30/20 Unknown Stool Stool Occult Blood (YADY) - Final - Diagnostic Impressions Diagnostic Impressions: Echocardiogram 05/28/20 19:02 Transthoracic Echocardiogram Indication: Bradycardia BP: 88/50 HR: 69 Conclusions *Global left ventricular systolic function is normal. *The estimated ejection fraction is 50-55%. *Abnormal left ventricular diastolic filling is observed, consistent with impaired relaxation. *The right ventricular global systolic function is normal. *There is trace of aortic regurgitation. *There is mild mitral regurgitation. *There is moderate tricuspid regurgitation. *The right ventricular systolic pressure is calculated at 32 mmHg. *There is trace pulmonic regurgitation. Findings Left Ventricle: The left ventricular chamber size is normal. Global left ventricular systolic function is normal. The estimated ejection fraction is 50-55%. Abnormal left ventricular diastolic filling is observed, consistent with impaired relaxation. Left Atrium: The left atrial chamber size is normal. Right Ventricle: The right ventricular cavity size is normal. The right ventricular global systolic function is normal. Right Atrium: The right atrial cavity size is normal. Aortic Valve: Mild aortic leaflet calcification is visualized. There is trace of aortic regurgitation. Mitral Valve: The mitral valve leaflets are mildly thickened. There is mild mitral regurgitation. Tricuspid Valve: The tricuspid valve leaflets are normal. There is moderate tricuspid regurgitation. The right ventricular systolic pressure is calculated at 32 mmHg. Pulmonic Valve: The pulmonic valve appears normal. There is trace pulmonic regurgitation. Pericardium: There is no pericardial effusion. Aorta: The aorta appears normal. Venous: The inferior vena cava appears normal. Measurements Chambers 2D Name Value Normal Range IVSd (2D) 0.95 cm (0.6 - 1.1) LVPWd (2D) 1 cm (0.6 - 1.1) LVIDd (2D) 4.9 cm (3.7 - 5.6) LVIDs (2D) 3.73 cm (2 - 3.8) LV FS (2D) 23.99 % - EF Teichholz (2D) 47.65 % - Ao root diameter (2D) 3.06 cm (2 - 3.7) Volumes/Mass Name Value Normal Range LA ESV SP 4CH (A/L) 39.56 ml - LA ESV SP 2CH (A/L) 39.94 ml - LA ESV BP (A/L) 40.31 ml - LA ESV BP (A/L) index 19.95 ml/m2 - LA ESV SP 4CH (MOD) 34.13 ml - LA ESV SP 2CH (MOD) 38.89 ml - LA ESV BP (MOD) 36.77 ml - LA ESV BP (MOD) index 18.21 ml/m2 - Diastolic/Systolic Function Name Value Normal Range MV E-wave Vmax 0.6 m/sec - MV deceleration time 200.59 msec - MV A-wave Vmax 0.62 m/sec - MV E:A ratio 0.96 ratio - Aortic Valve Name Value Normal Range AV Vmax 1.49 m/sec - AV VTI 30.69 cm - AV peak gradient 8.84 mmHg - AV mean gradient 4.47 mmHg - LVOT diameter 2.07 cm - LVOT Vmax 1.07 m/sec - LVOT VTI 23.42 cm - LVOT peak gradient 4.57 mmHg - LVOT mean gradient 2.25 mmHg - SV LVOT 78.95 ml - TIMBO (continuity Vmax) 2.42 cm2 - TIMBO (continuity VTI) 2.57 cm2 - AR PHT 817.15 msec - AR peak gradient 38.1 mmHg - Mitral Valve Name Value Normal Range MR Vmax 4.67 m/sec - Tricuspid Valve Name Value Normal Range TR Vmax 2.7 m/sec - TR peak gradient 29 mmHg - RAP 3 mmHg - RVSP 32 mmHg - Pulmonic Valve/Qp:Qs Name Value Normal Range PV Vmax 0.91 m/sec - PV peak gradient 3.34 mmHg - MI end-diastolic Vmax 0.95 m/sec - PV acceleration time 114.18 msec - Rodriguez/IV: Voiding Method Incontinent IV Catheter Type [Right Wrist] Peripheral IV IV Catheter Type [Right Peripheral IV Antecubital] Active Medications - Current Medications Current Medications: Generic Name Dose Route Start Last Admin Trade Name Cameron PRN Reason Stop Dose Admin Acetaminophen 650 mg 05/28/20 18:59 Tylenol PO Q4H PRN Pain MILD(1-3)/Fever >100.5/SCANLON Heparin Sodium (Porcine) 5,000 unit 05/28/20 22:00 05/30/20 21:18 Heparin SUB-Q 5,000 unit Q12HR GISELA Administration Sodium Bicarbonate 150 meq/ 1,150 mls @ 75 mls/hr 05/30/20 10:00 05/31/20 06:32 Dextrose IV 75 mls/hr DIRECT GISELA Administration Sodium Chloride 1,000 mls @ 50 mls/hr 05/30/20 12:15 Nacl 0.9% 1000 Ml IV DIRECT GISELA Ondansetron HCl 4 mg 05/28/20 18:59 Zofran IV Q8H PRN Nausea And Vomiting Sodium Chloride 10 ml 05/28/20 22:00 05/30/20 21:18 Sodium Chloride Flush Syringe 10 Ml IV 10 ml BID GISELA Administration Sodium Chloride 10 ml 05/28/20 18:59 Sodium Chloride Flush Syringe 10 Ml IV PRN PRN LINE FLUSH
[2020-05-31 09:53] LABS: BUN/Creatinine Ratio TNR; Blood Urea Nitrogen TNR mg/dL (9-20); Calcium TNR mg/dL (8.4-10.2)
[2020-05-31] MEDS: HEPARIN 5,000 UNIT/1 ML VIAL SUB-Q SCH ×2 (10:42→22:49)
[2020-05-31 12:00] LABS: Band Neutrophils # (Manual) 0.2 K/mm3; Basophils % (Manual) 0 % (0.0-1.8); Eosinophils % (Manual) 0 % (0.0-4.3); Total Cells Counted 100
[2020-05-31 12:01] LABS: Anisocytosis 3+; Burr Cells Few; Hypochromasia 1+; Platelet Estimate Consistent w Auto
--- NOTE | 2020-05-31 17:39 | Consultation ---
History of Present Illness - Reason for Consult Consult date: 05/31/20 acute renal failure, metabolic acidosis - History of Present Illness This is a 75-year-old man with dementia who presented with 3 day history of increased confusion and decreased oral intake. He had recently been discharged from a shelter facility and is bedbound at baseline. Workup upon admission revealed severe electrolyte derangements including anemia, metabolic acidosis and acute kidney injury. Nephrology was consulted for acute kidney injury and electrolyte derangements. History is obtained from chart review. Patient is confused and is unable to provide detailed accurate history. Past History Past Medical History: other (Vascular Dementia, Cerebral Atherosclerosis) Past Surgical History: No surgical history, Other (Reviewed) Social history: single. denies: smoking, alcohol abuse (Hospital) Family history: no significant family history Medications and Allergies Allergies Allergy/AdvReac Type Severity Reaction Status Date / Time No Known Allergies Allergy Unverified 05/28/20 12:55 Active Meds: Active Medications Acetaminophen (Tylenol) 650 mg PO Q4H PRN PRN Reason: Pain MILD(1-3)/Fever >100.5/SCANLON Heparin Sodium (Porcine) (Heparin) 5,000 unit SUB-Q Q12HR GISELA Last Admin: 05/31/20 10:42 Dose: 5,000 unit Documented by: Sodium Bicarbonate 150 meq/ (Dextrose) 1,150 mls @ 75 mls/hr IV DIRECT GISELA Last Admin: 05/31/20 06:32 Dose: 75 mls/hr Documented by: Sodium Chloride (Nacl 0.9% 1000 Ml) 1,000 mls @ 50 mls/hr IV DIRECT GISELA Ondansetron HCl (Zofran) 4 mg IV Q8H PRN PRN Reason: Nausea And Vomiting Sodium Chloride (Sodium Chloride Flush Syringe 10 Ml) 10 ml IV BID GISELA Last Admin: 05/31/20 10:46 Dose: 10 ml Documented by: Sodium Chloride (Sodium Chloride Flush Syringe 10 Ml) 10 ml IV PRN PRN PRN Reason: LINE FLUSH Review of Systems ROS unobtainable: due to mental status Exam - Vital Signs Vital signs: Vital Signs Temp Pulse Resp BP Pulse Ox 97.4 F L 78 16 89/31 95 05/28/20 12:55 05/28/20 12:55 05/28/20 12:55 05/28/20 12:55 05/28/20 12:55 - Physical Exam Narrative exam: Vitals: Reviewed General: No acute distress HEENT: Oral mucosa moist, no pharyngeal erythema, no evidence of epistaxis Neck: Supple, no evidence of any JVD, trachea midline, no thyromegaly Chest: Clear to auscultation, no crackles, rales or wheezes Heart: Regular rate and rhythm, S1-S2 heard, no S3-S4, no pericardial rub Abdomen: Soft, nontender, no renal bruit, no suprapubic masses no CVA tenderness Extremity: No peripheral cyanosis, 2+ bilateral lower extremity edema Neurological: Alert, awake, no asterixis Dermatology; no skin rashes Back: Nontender thoracolumbar spine, no CVA tenderness Psych: No agitation and aggression Musculoskeletal: No joint effusion noted Results - Lab Results 05/31/20 08:39 05/31/20 08:39 Most recent lab results ABG pH 7.352 pH Units (7.350-7.450) 05/30/20 12:35 ABG pCO2 29.0 mm Hg 05/30/20 12:35 ABG pO2 106.4 mm Hg (80.0-90.0) H 05/30/20 12:35 ABG HCO3 15.7 mmol/L (20.0-26.0) L 05/30/20 12:35 ABG O2 Saturation 97.8 % (95.0-99.0) 05/30/20 12:35 Calcium TNR 05/31/20 08:39 Magnesium 2.00 mg/dL (1.7-2.3) 05/28/20 14:11 Assessment and Plan Assessment * acute encephalopathy * Anemia * Metabolic acidosis * Acute kidney injury * right hydronephrosis * rectal mass * Peritoneal, retroperitoneal and inguinal adenopathy * Anasarca Recommendations * Check renal panel * Urology consult * place a Rodriguez * Stop IV fluids * Start by mouth sodium bicarb tablets * keep MAP>65 * Transfuse for hemoglobin less than 7 * Unable to diurese given soft pressures, monitor for respiratory distress, currently without respiratory distress on room air * agree with oncology consult * Recommend palliative care consult
[2020-05-31 19:51] LABS: Calcium 8.5 mg/dL (8.4-10.2)
[2020-05-31] MEDS: SODIUM BICARBONATE 650 MG TAB PO SCH (22:05)
--- NOTE | 2020-06-01 00:02 | Consultation ---
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 found to have metastatic cancer affecting bones and LN with a rectal mass nd R hydropenophrosis found to have severe anemia-->needed RBC transfusions The pt is barely able to talk, not able to recount his medical history found to have hypotension on admission found to have external rectal ulcers and a larce rectal mass scans and lab data reviewed EXAM: barely able to talk not oriented no obvious abd distention wound image seen on nursing notes--> external ulcer mass IMPRESSION: METASTATIC CANCER, 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 Past History Past Medical History: other (Vascular Dementia, Cerebral Atherosclerosis) Past Surgical History: No surgical history, Other (Reviewed) Social history: single. denies: smoking, alcohol abuse (Hospital) Family history: no significant family history Medications and Allergies Allergies Allergy/AdvReac Type Severity Reaction Status Date / Time No Known Allergies Allergy Unverified 05/28/20 12:55 Active Meds: Active Medications Acetaminophen (Tylenol) 650 mg PO Q4H PRN PRN Reason: Pain MILD(1-3)/Fever >100.5/SCANLON Heparin Sodium (Porcine) (Heparin) 5,000 unit SUB-Q Q12HR GISELA Last Admin: 05/31/20 22:49 Dose: 5,000 unit Documented by: Sodium Chloride (Nacl 0.9% 1000 Ml) 1,000 mls @ 50 mls/hr IV DIRECT [facility] Ondansetron HCl (Zofran) 4 mg IV Q8H PRN PRN Reason: Nausea And Vomiting Last Admin: 05/31/20 23:24 Dose: 4 mg Documented by: Sodium Bicarbonate (Sodium Bicarbonate) 1,300 mg PO TID [facility] Last Admin: 05/31/20 22:05 Dose: 1,300 mg Documented by: Sodium Chloride (Sodium Chloride Flush Syringe 10 Ml) 10 ml IV BID [facility] Last Admin: 05/31/20 22:50 Dose: 10 ml Documented by: Sodium Chloride (Sodium Chloride Flush Syringe 10 Ml) 10 ml IV PRN PRN PRN Reason: LINE FLUSH Exam - Constitutional Vitals: Temp Pulse Resp BP Pulse Ox 97.3 F L 71 18 101/58 98 05/31/20 21:06 05/31/20 22:00 05/31/20 22:00 05/31/20 21:06 05/31/20 22:00 Results - Labs CBC & Chem 7: 05/31/20 08:39 05/31/20 19:00 Labs: Abnormal lab results 05/31/20 05/31/20 Range/Units 08:39 19:00 Hgb 10.1 L (11.8-15.2) gm/dl Hct 31.9 L (35.5-45.6) % MCV 83 L (84-94) fl MCH 26 L (28-32) pg RDW 33.0 H (13.2-15.2) % Seg Neuts % (Manual) 93.0 H (40.0-70.0) % Lymphocytes % (Manual) 2.0 L (13.4-35.0) % Lymphocytes # (Manual) 0.1 L (1.2-5.4) K/mm3 Sodium 147 H (137-145) mmol/L Chloride 112.0 H (98-107) mmol/L BUN 33 H (9-20) mg/dL Creatinine 1.9 H (0.8-1.3) mg/dL
--- NOTE | 2020-06-01 07:27 | Progress Note ---
Assessment and Plan Assessment * acute encephalopathy * Anemia * Metabolic acidosis * Acute kidney injury * right hydronephrosis * rectal mass * Peritoneal, retroperitoneal and inguinal adenopathy * Anasarca Recommendations * Urology note reviewed, not a candidate for stent placements/surgical intervention * place a Rodriguez * Hold IV fluids * Start by mouth sodium bicarb tablets * keep MAP>65 * Transfuse for hemoglobin less than 7 * Unable to diurese given soft pressures, monitor for respiratory distress, currently without respiratory distress on room air * Oncology following - determined not to be a candidate for chemotherapy * Recommend palliative care consult Subjective Date of service: 06/01/20 Principal diagnosis: severe anemia, PATO Interval history: Patient was seen for his renal issues Nursing, interdisciplinary and consult notes were reviewed Vitals, input and output, medications and labs were reviewed Incontinent, voided several times Appears more confused today Objective - Exam Narrative Exam: Vitals: Reviewed General: No acute distress HEENT: Oral mucosa moist, no pharyngeal erythema, no evidence of epistaxis Neck: Supple, no evidence of any JVD, trachea midline, no thyromegaly Chest: Clear to auscultation, no crackles, rales or wheezes Heart: Regular rate and rhythm, S1-S2 heard, no S3-S4, no pericardial rub Abdomen: Soft, nontender, no renal bruit, no suprapubic masses no CVA tenderness Extremity: No peripheral cyanosis, 2+ bilateral lower extremity edema Neurological: somnolent, confused Dermatology; no skin rashes Back: Nontender thoracolumbar spine, no CVA tenderness Psych: No agitation and aggression Musculoskeletal: No joint effusion noted - Vital Signs Vital signs: Vital Signs - 12hr 05/31/20 05/31/20 05/31/20 21:00 21:06 22:00 Temperature 97.3 F L 97.3 F L Pulse Rate 71 Pulse Rate [ 71 Left Radial] Respiratory 12 18 Rate Blood Pressure 101/58 Blood Pressure 101/58 [Left] O2 Sat by Pulse 98 Oximetry 05/31/20 05/31/20 06/01/20 23:00 23:50 00:07 Temperature 97.6 F Pulse Rate 83 83 Pulse Rate [ Left Radial] Respiratory 20 16 Rate Blood Pressure 91/48 Blood Pressure [Left] O2 Sat by Pulse 100 69 L Oximetry 06/01/20 06/01/20 04:23 05:04 Temperature 97.5 F L Pulse Rate 72 Pulse Rate [ Left Radial] Respiratory 12 18 Rate Blood Pressure 91/54 91/60 Blood Pressure [Left] O2 Sat by Pulse 98 Oximetry - Lab 05/31/20 08:39 05/31/20 19:00 Most recent lab results ABG pH 7.352 pH Units (7.350-7.450) 05/30/20 12:35 ABG pCO2 29.0 mm Hg 05/30/20 12:35 ABG pO2 106.4 mm Hg (80.0-90.0) H 05/30/20 12:35 ABG HCO3 15.7 mmol/L (20.0-26.0) L 05/30/20 12:35 ABG O2 Saturation 97.8 % (95.0-99.0) 05/30/20 12:35 Calcium 8.5 mg/dL (8.4-10.2) 05/31/20 19:00 Magnesium 2.00 mg/dL (1.7-2.3) 05/28/20 14:11 Medications & Allergies - Medications Allergies/Adverse Reactions: Allergies No Known Allergies Allergy (Unverified 05/28/20 12:55) Active Medications: Generic Name Dose Route Start Last Admin Trade Name Freq PRN Reason Stop Dose Admin Acetaminophen 650 mg 05/28/20 18:59 Tylenol PO Q4H PRN Pain MILD(1-3)/Fever >100.5/SCANLON Heparin Sodium (Porcine) 5,000 unit 05/28/20 22:00 05/31/20 22:49 Heparin SUB-Q 5,000 unit Q12HR GISELA Administration Sodium Chloride 1,000 mls @ 50 mls/hr 05/30/20 12:15 Nacl 0.9% 1000 Ml IV DIRECT GISELA Ondansetron HCl 4 mg 05/28/20 18:59 05/31/20 23:24 Zofran IV 4 mg Q8H PRN Administration Nausea And Vomiting Sodium Bicarbonate 1,300 mg 05/31/20 20:00 05/31/20 22:05 Sodium Bicarbonate PO 1,300 mg TID GISELA Administration Sodium Chloride 10 ml 05/28/20 22:00 05/31/20 22:50 Sodium Chloride Flush Syringe 10 Ml IV 10 ml BID GISELA Administration Sodium Chloride 10 ml 05/28/20 18:59 Sodium Chloride Flush Syringe 10 Ml IV PRN PRN LINE FLUSH
--- NOTE | 2020-06-01 08:00 | Progress Note ---
Assessment and Plan Assessment and plan: 75 YO Male with Vascular Dementia, Cerebral Atherosclerosis presents to ED for evaluation. Patient is confused and lethargic and unable to provide detailed history at the time of my evaluation. Patient history taken from EMS, ED staff, as well as friends who are at the bedside during exam and interview. As per family and friends, the patient has experienced increased confusion and decreased oral intake over the past 3 days since discharge home from a fdc facility. Patient is currently bedbound, nonambulatory, requires 6/6 assistance with activities of daily living, and has a palliative performance score 30%. EMS was notified and upon arrival the patient was found to be in distress and subsequently transported to [facility] for further care and evaluation of the aforementioned symptoms. Patient seen and evaluated in the emergency department. All lab and imaging studies reviewed. Patient found to have metabolic encephalopathy, hypotension, metabolic acidosis, acute kidney injury with concomitant volume depletion and acute tubular necrosis, as well as hypotension with the Bystolic blood pressure in the 70s.. Patient treated with IV fluid resuscitation therapy with mild improvement in systolic blood pressure. Patient admitted to telemetry due to increased risk of multisystem organ failure. No prior admission for review. No medication listed at time of admission for reconciliation. Advanced care planning conducted in ED. Patient is confused and lethargic at the time of my evaluation but the patient has a positive gag reflex and is able to protect his airway without difficulty. Severe anemia -Hemoglobin was 7.1 yesterday, will check hemoglobin today -Anemia work-up -GI wants to do EGD/colonoscopy but could not get any family member to sign the consent -Repeat hemoglobin this morning is 5.9 and will transfuse 2 units of blood 05/30/2020 -Hemoglobin this morning is 10.1 -GI will do colonoscopy today -Speech therapy evaluation placed Rectal mass, could be metastatic from the prostate -Could not advance colonoscope because of the mass -Oncology consulted and recommend hospice care -Not a candidate for anticancer treatment (1) Metabolic encephalopathy Current Visit: Yes Status: Acute Plan to address problem: CT head, neuro check, aspiration precautions, fall precautions, IV fluid resuscitation therapy, supportive care. Patient is calm and cooperative Patient is demented (2) Metabolic acidosis Current Visit: Yes Status: Acute Plan to address problem: IV fluid resuscitation therapy, IV bicarbonate therapy, supportive care. (3) Acute kidney injury (PATO) with acute tubular necrosis (ATN) Current Visit: Yes Status: Acute Plan to address problem: IV fluid resuscitation therapy, monitor urine output every shift, avoid nephrotoxic agents. Patient has history of prostate cancer Creatinine is now significantly improved We will get nephrology consult (4) Volume depletion Current Visit: Yes Status: Acute Plan to address problem: IV fluid resuscitation therapy, monitor urine output every shift, repeat BMP in a.m. (5) Vascular dementia Current Visit: Yes Status: Acute Qualifiers: Dementia behavioral disturbance: without behavioral disturbance Qualified Code(s): F01.50 - Vascular dementia without behavioral disturbance Plan to address problem: Verbal prompting, verbal redirection, benzodiazepine therapy as needed, supportive care. (6) Cerebral atherosclerosis Current Visit: Yes Status: Acute Plan to address problem: Supportive care, continue medical management, risk factor reduction. (7) DVT prophylaxis Current Visit: Yes Status: Acute Plan to address problem: SCD to bilateral lower extremities while in bed (8) Advance care planning Current Visit: Yes Status: Acute Plan to address problem: Disease education conducted, patient is full code, prognosis discussed, patient family acknowledge understanding and agreement with care plan, +30 minutes. Disposition; continue inpatient care Management plan was discussed in detail with his nephew Mr. Francois at [phone]. He said he wants inpatient hospice and also his thinking to take him to [place] if possible. He is going to call his kids in [place] and he will call me back. History Interval history: Patient was seen and evaluated this morning Patient is demented but calm and cooperative I have discussed with his nephew [phone] Hospitalist Physical - Physical exam Narrative exam: Not in cardiopulmonary distress. The patient appeared well nourished and normally developed. Vital signs as documented. Head exam is unremarkable. No scleral icterus . Neck is without jugular venous distension, thyromegaly, or carotid bruits. Lungs are clear to auscultation. Cardiac exam reveals regular rate and Rhythm. Abdominal exam reveals normal bowel sounds, nontender, no organomegaly. Extremities are nonedematous and both femoral and pedal pulses are normal. 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 No focal weakness. - Constitutional Vitals: Temp Pulse Resp BP Pulse Ox 97.5 F L 72 18 91/60 98 06/01/20 04:23 06/01/20 05:04 06/01/20 05:04 06/01/20 05:04 06/01/20 05:04 General appearance: Present: mild distress HEART Score - HEART Score Troponin: Troponin T < 0.010 ng/mL (0.00-0.029) 05/28/20 14:11 Results - Labs CBC & Chem 7: 05/31/20 08:39 05/31/20 19:00 Labs: Laboratory Last Values WBC 5.5 K/mm3 (4.5-11.0) 05/31/20 08:39 RBC 3.84 M/mm3 (3.65-5.03) 05/31/20 08:39 Hgb 10.1 gm/dl (11.8-15.2) L 05/31/20 08:39 Hct 31.9 % (35.5-45.6) L 05/31/20 08:39 MCV 83 fl (84-94) L 05/31/20 08:39 MCH 26 pg (28-32) L 05/31/20 08:39 MCHC 32 % (32-34) 05/31/20 08:39 RDW 33.0 % (13.2-15.2) H 05/31/20 08:39 Plt Count 158 K/mm3 (140-440) 05/31/20 08:39 Lymph % (Auto) 34.0 % (13.4-35.0) 05/30/20 05:00 [place] % (Auto) 6.5 % (0.0-7.3) 05/30/20 05:00 Eos % (Auto) 0.1 % (0.0-4.3) 05/30/20 05:00 Baso % (Auto) 0.4 % (0.0-1.8) 05/30/20 05:00 Lymph # (Auto) 2.0 K/mm3 (1.2-5.4) 05/30/20 05:00 [place] # (Auto) 0.4 K/mm3 (0.0-0.8) 05/30/20 05:00 Eos # (Auto) 0.0 K/mm3 (0.0-0.4) 05/30/20 05:00 Baso # (Auto) 0.0 K/mm3 (0.0-0.1) 05/30/20 05:00 Add Manual Diff Complete 05/31/20 08:39 Total Counted 100 05/31/20 08:39 Seg Neutrophils % 59.0 % (40.0-70.0) 05/30/20 05:00 Seg Neuts % (Manual) 93.0 % (40.0-70.0) H 05/31/20 08:39 Band Neutrophils % 4.0 % 05/31/20 08:39 Lymphocytes % (Manual) 2.0 % (13.4-35.0) L 05/31/20 08:39 Reactive Lymphs % (Man) 0 % 05/31/20 08:39 Monocytes % (Manual) 1.0 % (0.0-7.3) 05/31/20 08:39 Eosinophils % (Manual) 0 % (0.0-4.3) 05/31/20 08:39 Basophils % (Manual) 0 % (0.0-1.8) 05/31/20 08:39 Metamyelocytes % 0 % 05/31/20 08:39 Myelocytes % 0 % 05/31/20 08:39 Promyelocytes % 0 % 05/31/20 08:39 Blast Cells % 0 % 05/31/20 08:39 Nucleated RBC % Not Reportable 05/31/20 08:39 Seg Neutrophils # 3.4 K/mm3 (1.8-7.7) 05/30/20 05:00 Seg Neutrophils # Man 5.1 K/mm3 (1.8-7.7) 05/31/20 08:39 Band Neutrophils # 0.2 K/mm3 05/31/20 08:39 Lymphocytes # (Manual) 0.1 K/mm3 (1.2-5.4) L 05/31/20 08:39 Abs React Lymphs (Man) 0.0 K/mm3 05/31/20 08:39 Monocytes # (Manual) 0.1 K/mm3 (0.0-0.8) 05/31/20 08:39 Eosinophils # (Manual) 0.0 K/mm3 (0.0-0.4) 05/31/20 08:39 Basophils # (Manual) 0.0 K/mm3 (0.0-0.1) 05/31/20 08:39 Metamyelocytes # 0.0 K/mm3 05/31/20 08:39 Myelocytes # 0.0 K/mm3 05/31/20 08:39 Promyelocytes # 0.0 K/mm3 05/31/20 08:39 Blast Cells # 0.0 K/mm3 05/31/20 08:39 WBC Morphology Not Reportable 05/31/20 08:39 Hypersegmented Neuts Not Reportable 05/31/20 08:39 Hyposegmented Neuts Not Reportable 05/31/20 08:39 Hypogranular Neuts Not Reportable 05/31/20 08:39 Hypersegmented Polys Cancelled 05/30/20 04:14 Smudge Cells Not Reportable 05/31/20 08:39 Toxic Granulation Not Reportable 05/31/20 08:39 Toxic Vacuolation Not Reportable 05/31/20 08:39 Dohle Bodies Not Reportable 05/31/20 08:39 Pelger-Huet Anomaly Not Reportable 05/31/20 08:39 Dorys Rods Not Reportable 05/31/20 08:39 Platelet Estimate Consistent w auto 05/31/20 08:39 Clumped Platelets Not Reportable 05/31/20 08:39 Plt Clumps, EDTA Not Reportable 05/31/20 08:39 Large Platelets Not Reportable 05/31/20 08:39 Giant Platelets Not Reportable 05/31/20 08:39 Platelet Satelliting Not Reportable 05/31/20 08:39 Plt Morphology Comment Not Reportable 05/31/20 08:39 RBC Morphology Not Reportable 05/31/20 08:39 Dimorphic RBCs Not Reportable 05/31/20 08:39 Polychromasia Not Reportable 05/31/20 08:39 Hypochromasia 1+ 05/31/20 08:39 Poikilocytosis Not Reportable 05/31/20 08:39 Basophilic Stippling Cancelled 05/30/20 04:14 Anisocytosis 3+ 05/31/20 08:39 Microcytosis 1+ 05/31/20 08:39 Macrocytosis Not Reportable 05/31/20 08:39 Spherocytes Not Reportable 05/31/20 08:39 Pappenheimer Bodies Not Reportable 05/31/20 08:39 Sickle Cells Not Reportable 05/31/20 08:39 Target Cells Not Reportable 05/31/20 08:39 Tear Drop Cells Not Reportable 05/31/20 08:39 Ovalocytes Not Reportable 05/31/20 08:39 Stomatocytes Cancelled 05/30/20 04:14 Helmet Cells Not Reportable 05/31/20 08:39 [place] Bodies Not Reportable 05/31/20 08:39 [employer] Rings Not Reportable 05/31/20 08:39 Haylie Cells Few 05/31/20 08:39 Bite Cells Not Reportable 05/31/20 08:39 Crenated Cell Not Reportable 05/31/20 08:39 Elliptocytes Not Reportable 05/31/20 08:39 Acanthocytes (Spur) Not Reportable 05/31/20 08:39 Rouleaux Not Reportable 05/31/20 08:39 Hemoglobin C Crystals Not Reportable 05/31/20 08:39 Schistocytes Not Reportable 05/31/20 08:39 Malaria parasites Not Reportable 05/31/20 08:39 Varghese Bodies Not Reportable 05/31/20 08:39 Hem Pathologist Commnt No 05/31/20 08:39 ABG pH 7.352 pH Units (7.350-7.450) 05/30/20 12:35 ABG pCO2 29.0 mm Hg 05/30/20 12:35 ABG pO2 106.4 mm Hg (80.0-90.0) H 05/30/20 12:35 ABG HCO3 15.7 mmol/L (20.0-26.0) L 05/30/20 12:35 ABG O2 Saturation 97.8 % (95.0-99.0) 05/30/20 12:35 ABG O2 Content 15.6 (0.0-44) 05/30/20 12:35 ABG Base Excess -8.6 mmol/L (-2.0-3.0) L 05/30/20 12:35 ABG Hemoglobin 11.5 gm/dl (14.0-18.0) L 05/30/20 12:35 ABG Carboxyhemoglobin 1.4 % (0.0-5.0) 05/30/20 12:35 ABG Methemoglobin 0.6 % (0.0-1.5) 05/30/20 12:35 Oxyhemoglobin 95.9 % (95.0-99.0) 05/30/20 12:35 FiO2 21 % 05/30/20 12:35 Sodium 147 mmol/L (137-145) H 05/31/20 19:00 Potassium 3.7 mmol/L (3.6-5.0) 05/31/20 19:00 Chloride 112.0 mmol/L (98-107) H 05/31/20 19:00 Carbon Dioxide 22 mmol/L (22-30) 05/31/20 19:00 Anion Gap 17 mmol/L 05/31/20 19:00 BUN 33 mg/dL (9-20) H 05/31/20 19:00 Creatinine 1.9 mg/dL (0.8-1.3) H 05/31/20 19:00 Estimated GFR 42 ml/min 05/31/20 19:00 BUN/Creatinine Ratio 17 % 05/31/20 19:00 Glucose 93 mg/dL (75-100) 05/31/20 19:00 Lactic Acid 1.00 mmol/L (0.7-2.0) 05/30/20 10:10 Calcium 8.5 mg/dL (8.4-10.2) 05/31/20 19:00 Magnesium 2.00 mg/dL (1.7-2.3) 05/28/20 14:11 Iron 21 ug/dL (49-181) L 05/29/20 04:54 TIBC 150 mcg/dL (250-450) L 05/29/20 04:54 Ferritin 993.6 ng/mL (30.0-300.0) H 05/29/20 10:51 Total Bilirubin 0.40 mg/dL (0.1-1.2) 05/28/20 14:11 AST 40 units/L (5-40) 05/28/20 14:11 ALT 6 units/L (7-56) L 05/28/20 14:11 Alkaline Phosphatase 82 units/L (35-129) 05/28/20 14:11 Total Creatine Kinase 310 units/L (55-170) H 05/28/20 14:11 CK-MB (CK-2) 2.1 ng/mL (0.0-4.0) 05/28/20 14:11 CK-MB (CK-2) Rel Index 0.6 (0-4) 05/28/20 14:11 Troponin T < 0.010 ng/mL (0.00-0.029) 05/28/20 14:11 Total Protein 7.0 g/dL (6.3-8.2) 05/28/20 14:11 Albumin 2.6 g/dL (3.9-5) L 05/28/20 14:11 Albumin/Globulin Ratio 0.6 % 05/28/20 14:11 Lipase 48 units/L (13-60) 05/28/20 14:11 Vitamin B12 1248 pg/mL (211-911) H 05/29/20 10:51 Folate 2.84 ng/mL (7.3-26.0) L 05/29/20 10:51 TSH 4.930 mlU/mL (0.270-4.200) H 05/28/20 19:11 Free T4 0.86 ng/dL (0.76-1.46) 05/28/20 19:11 Urine Color Yellow (Yellow) 05/28/20 Unknown Urine Turbidity Clear (Clear) 05/28/20 Unknown Urine pH 5.0 (5.0-7.0) 05/28/20 Unknown Ur Specific [place] 1.017 (1.003-1.030) 05/28/20 Unknown Urine Protein <15 mg/dl mg/dL (Negative) 05/28/20 Unknown Urine Glucose (UA) Neg mg/dL (Negative) 05/28/20 Unknown Urine Ketones Tr mg/dL (Negative) 05/28/20 Unknown Urine Blood Neg (Negative) 05/28/20 Unknown Urine Nitrite Neg (Negative) 05/28/20 Unknown Urine Bilirubin Neg (Negative) 05/28/20 Unknown Urine Urobilinogen 2.0 mg/dL (<2.0) 05/28/20 Unknown Ur Leukocyte Esterase Tr (Negative) 05/28/20 Unknown Urine WBC (Auto) 5.0 /HPF (0.0-6.0) 05/28/20 Unknown Urine RBC (Auto) 3.0 /HPF (0.0-6.0) 05/28/20 Unknown U Epithel Cells (Auto) 1.0 /HPF (0-13.0) 05/28/20 Unknown Urine Bacteria (Auto) 1+ /HPF (Negative) 05/28/20 Unknown Hyaline Casts 1 /LPF 05/28/20 Unknown Urine Mucus Few /HPF 10/19/20 Unknown Urine Opiates Screen Presumptive negative 05/28/20 Unknown Urine Methadone Screen Presumptive negative 05/28/20 Unknown Ur Barbiturates Screen Presumptive negative 05/28/20 Unknown Ur Phencyclidine Scrn Presumptive negative 05/28/20 Unknown Ur Amphetamines Screen Presumptive negative 05/28/20 Unknown U Benzodiazepines Scrn Presumptive negative 05/28/20 Unknown Urine Cocaine Screen Presumptive negative 05/28/20 Unknown U Marijuana (THC) Screen Presumptive negative 05/28/20 Unknown Drugs of Abuse Note Disclamer 05/28/20 Unknown Blood Type B POSITIVE 05/29/20 14:29 Antibody Screen Negative 05/29/20 14:29 Crossmatch See Detail 05/29/20 14:29 Microbiology: Microbiology 05/28/20 18:52 Peripheral/Venous Blood Culture - Preliminary NO GROWTH AFTER 72 HOURS 05/28/20 18:52 Peripheral/Venous Blood Culture - Preliminary NO GROWTH AFTER 72 HOURS - Diagnostic Impressions Diagnostic Impressions: Echocardiogram 05/28/20 19:02 Transthoracic Echocardiogram Indication: Bradycardia BP: 88/50 HR: 69 Conclusions *Global left ventricular systolic function is normal. *The estimated ejection fraction is 50-55%. *Abnormal left ventricular diastolic filling is observed, consistent with impaired relaxation. *The right ventricular global systolic function is normal. *There is trace of aortic regurgitation. *There is mild mitral regurgitation. *There is moderate tricuspid regurgitation. *The right ventricular systolic pressure is calculated at 32 mmHg. *There is trace pulmonic regurgitation. Findings Left Ventricle: The left ventricular chamber size is normal. Global left ventricular systolic function is normal. The estimated ejection fraction is 50-55%. Abnormal left ventricular diastolic filling is observed, consistent with impaired relaxation. Left Atrium: The left atrial chamber size is normal. Right Ventricle: The right ventricular cavity size is normal. The right ventricular global systolic function is normal. Right Atrium: The right atrial cavity size is normal. Aortic Valve: Mild aortic leaflet calcification is visualized. There is trace of aortic regurgitation. Mitral Valve: The mitral valve leaflets are mildly thickened. There is mild mitral regurgitation. Tricuspid Valve: The tricuspid valve leaflets are normal. There is moderate tricuspid regurgitation. The right ventricular systolic pressure is calculated at 32 mmHg. Pulmonic Valve: The pulmonic valve appears normal. There is trace pulmonic regurgitation. Pericardium: There is no pericardial effusion. Aorta: The aorta appears normal. Venous: The inferior vena cava appears normal. Measurements Chambers 2D Name Value Normal Range IVSd (2D) 0.95 cm (0.6 - 1.1) LVPWd (2D) 1 cm (0.6 - 1.1) LVIDd (2D) 4.9 cm (3.7 - 5.6) LVIDs (2D) 3.73 cm (2 - 3.8) LV FS (2D) 23.99 % - EF Teichholz (2D) 47.65 % - Ao root diameter (2D) 3.06 cm (2 - 3.7) Volumes/Mass Name Value Normal Range LA ESV SP 4CH (A/L) 39.56 ml - LA ESV SP 2CH (A/L) 39.94 ml - LA ESV BP (A/L) 40.31 ml - LA ESV BP (A/L) index 19.95 ml/m2 - LA ESV SP 4CH (MOD) 34.13 ml - LA ESV SP 2CH (MOD) 38.89 ml - LA ESV BP (MOD) 36.77 ml - LA ESV BP (MOD) index 18.21 ml/m2 - Diastolic/Systolic Function Name Value Normal Range MV E-wave Vmax 0.6 m/sec - MV deceleration time 200.59 msec - MV A-wave Vmax 0.62 m/sec - MV E:A ratio 0.96 ratio - Aortic Valve Name Value Normal Range AV Vmax 1.49 m/sec - AV VTI 30.69 cm - AV peak gradient 8.84 mmHg - AV mean gradient 4.47 mmHg - LVOT diameter 2.07 cm - LVOT Vmax 1.07 m/sec - LVOT VTI 23.42 cm - LVOT peak gradient 4.57 mmHg - LVOT mean gradient 2.25 mmHg - SV LVOT 78.95 ml - TIMBO (continuity Vmax) 2.42 cm2 - TIMBO (continuity VTI) 2.57 cm2 - AR PHT 817.15 msec - AR peak gradient 38.1 mmHg - Mitral Valve Name Value Normal Range MR Vmax 4.67 m/sec - Tricuspid Valve Name Value Normal Range TR Vmax 2.7 m/sec - TR peak gradient 29 mmHg - RAP 3 mmHg - RVSP 32 mmHg - Pulmonic Valve/Qp:Qs Name Value Normal Range PV Vmax 0.91 m/sec - PV peak gradient 3.34 mmHg - UT end-diastolic Vmax 0.95 m/sec - PV acceleration time 114.18 msec - Rodriguez/IV: Voiding Method Incontinent IV Catheter Type [Right Wrist] Peripheral IV IV Catheter Type [Right Peripheral IV Antecubital] Active Medications - Current Medications Current Medications: Generic Name Dose Route Start Last Admin Trade Name Freq PRN Reason Stop Dose Admin Acetaminophen 650 mg 05/28/20 18:59 Tylenol PO Q4H PRN Pain MILD(1-3)/Fever >100.5/SCANLON Heparin Sodium (Porcine) 5,000 unit 05/28/20 22:00 05/31/20 22:49 Heparin SUB-Q 5,000 unit Q12HR GISELA Administration Sodium Chloride 1,000 mls @ 50 mls/hr 05/30/20 12:15 Nacl 0.9% 1000 Ml IV DIRECT GISELA Ondansetron HCl 4 mg 05/28/20 18:59 05/31/20 23:24 Zofran IV 4 mg Q8H PRN Administration Nausea And Vomiting Sodium Bicarbonate 1,300 mg 05/31/20 20:00 05/31/20 22:05 Sodium Bicarbonate PO 1,300 mg TID GISELA Administration Sodium Chloride 10 ml 05/28/20 22:00 05/31/20 22:50 Sodium Chloride Flush Syringe 10 Ml IV 10 ml BID GISELA Administration Sodium Chloride 10 ml 05/28/20 18:59 Sodium Chloride Flush Syringe 10 Ml IV PRN PRN LINE FLUSH
[2020-06-01] MEDS: SODIUM BICARBONATE 650 MG TAB PO SCH ×3 (09:33→21:59)
[2020-06-01] MEDS: HEPARIN 5,000 UNIT/1 ML VIAL SUB-Q SCH ×2 (09:53→21:59)
--- NOTE | 2020-06-01 11:57 | Consultation ---
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 Pt has been bedbound Pt found to have metastatic cancer affecting bones and LN with a rectal mass nd R hydropenophrosis severe anemia-->needed RBC transfusions The pt is barely able to talk, not able to recount his medical history found to have hypotension on admission found to have external rectal ulcers and a large rectal mass CT--large rectal mass, rt hydro exam pelvic & lower extremity edema A/P rt hydro (creatinine 1.9) Agree with oncology recommendation high risk for any surgical procedure (cysto stent) can consider nephrostomy only if needed will sign off reviewed oncology note IMPRESSION: METASTATIC CANCER, likely rectal cancer poor functional status, not a candidate for antitumor therapy RECOMMEND: end of life discussion consider transition to hospice Past History Past Medical History: other (Vascular Dementia, Cerebral Atherosclerosis) Past Surgical History: No surgical history, Other (Reviewed) Social history: single. denies: smoking, alcohol abuse (Hospital) Family history: no significant family history Medications and Allergies Allergies Allergy/AdvReac Type Severity Reaction Status Date / Time No Known Allergies Allergy Unverified 05/28/20 12:55 Active Meds: Active Medications Acetaminophen (Tylenol) 650 mg PO Q4H PRN PRN Reason: Pain MILD(1-3)/Fever >100.5/SCANLON Last Admin: 06/01/20 09:42 Dose: 650 mg Documented by: Heparin Sodium (Porcine) (Heparin) 5,000 unit SUB-Q Q12HR [facility] Last Admin: 06/01/20 09:53 Dose: 5,000 unit Documented by: Sodium Chloride (Nacl 0.9% 1000 Ml) 1,000 mls @ 50 mls/hr IV DIRECT [facility] Ondansetron HCl (Zofran) 4 mg IV Q8H PRN PRN Reason: Nausea And Vomiting Last Admin: 05/31/20 23:24 Dose: 4 mg Documented by: Sodium Bicarbonate (Sodium Bicarbonate) 1,300 mg PO TID [facility] Last Admin: 06/01/20 09:33 Dose: 1,300 mg Documented by: Sodium Chloride (Sodium Chloride Flush Syringe 10 Ml) 10 ml IV BID [facility] Last Admin: 06/01/20 09:43 Dose: 10 ml Documented by: Sodium Chloride (Sodium Chloride Flush Syringe 10 Ml) 10 ml IV PRN PRN PRN Reason: LINE FLUSH Exam - Constitutional Vitals: Temp Pulse Resp BP Pulse Ox 98.9 F 79 16 85/48 72 L 06/01/20 08:05 06/01/20 08:05 06/01/20 08:05 06/01/20 08:05 06/01/20 08:05 Results - Labs CBC & Chem 7: 05/31/20 08:39 05/31/20 19:00 Labs: Abnormal lab results 05/31/20 05/31/20 Range/Units 08:39 19:00 Seg Neuts % (Manual) 93.0 H (40.0-70.0) % Lymphocytes % (Manual) 2.0 L (13.4-35.0) % Lymphocytes # (Manual) 0.1 L (1.2-5.4) K/mm3 Sodium 147 H (137-145) mmol/L Chloride 112.0 H (98-107) mmol/L BUN 33 H (9-20) mg/dL Creatinine 1.9 H (0.8-1.3) mg/dL
[2020-06-01] MEDS ORDERED: MORPHINE 2 MG/1 ML INJ IV PRN (13:00)
[2020-06-01] MEDS: SODIUM CHLORIDE 0.9% 1000 ML 1,000 ML IV SCH (14:19)
--- NOTE | 2020-06-02 00:58 | Progress Note ---
Subjective Principal diagnosis: metastatic cancer Interval history: ONCOLOGY data review 75yo disabled AA man with presumed dementia found to have metastatic cancer affecting bones and LN with a rectal mass nd R hydropenophrosis rectal mass bioppsy did not confirm malignancy. IMPRESSION: METASTATIC CANCER, likely rectal cancer imaging c/w metastatic cancer poor functional status, not a candidate for antitumor therapy RECOMMEND: end of life discussion no repeat biopsy consider transition to hospice Name: [facility] Rectum, biopsy: Granulation tissue and fibrinoexudate debris with few atypical epithelial cells Pending immunohistochemical stains to rule out prostate vs squamous cells Please see note. Objective - Constitutional Vitals: Vital Signs - 12hr 06/01/20 06/01/20 06/01/20 16:14 17:18 18:59 Temperature 98.4 F Pulse Rate 68 72 Respiratory 18 Rate Blood Pressure 97/59 Blood Pressure 90/45 [Left] O2 Sat by Pulse 96 Oximetry 06/01/20 20:26 Temperature 97.4 F L Pulse Rate 71 Respiratory 20 Rate Blood Pressure 99/54 Blood Pressure [Left] O2 Sat by Pulse 100 Oximetry - Labs CBC & Chem 7: 05/31/20 08:39 05/31/20 19:00 Medications & Allergies - Medications Allergies/Adverse Reactions: Allergies No Known Allergies Allergy (Unverified 05/28/20 12:55) Active Medications: Generic Name Dose Route Start Last Admin Trade Name Freq PRN Reason Stop Dose Admin Acetaminophen 650 mg 05/28/20 18:59 06/01/20 09:42 Tylenol PO 650 mg Q4H PRN Administration Pain MILD(1-3)/Fever >100.5/SCANLON Heparin Sodium (Porcine) 5,000 unit 05/28/20 22:00 06/01/20 21:59 Heparin SUB-Q 5,000 unit Q12HR GISELA Administration Sodium Chloride 1,000 mls @ 50 mls/hr 05/30/20 12:15 06/01/20 14:19 Nacl 0.9% 1000 Ml IV 50 mls/hr DIRECT GISELA Administration Morphine Sulfate 2 mg 06/01/20 13:00 06/01/20 12:54 Morphine IV 2 mg Q4H PRN Administration Pain, Moderate (4-6) Ondansetron HCl 4 mg 05/28/20 18:59 05/31/20 23:24 Zofran IV 4 mg Q8H PRN Administration Nausea And Vomiting Sodium Bicarbonate 1,300 mg 05/31/20 20:00 06/01/20 21:59 Sodium Bicarbonate PO 1,300 mg TID GISELA Administration Sodium Chloride 10 ml 05/28/20 22:00 06/01/20 21:59 Sodium Chloride Flush Syringe 10 Ml IV 10 ml BID GISELA Administration Sodium Chloride 10 ml 05/28/20 18:59 Sodium Chloride Flush Syringe 10 Ml IV PRN PRN LINE FLUSH HEART Score - HEART Score Troponin: Troponin T < 0.010 ng/mL (0.00-0.029) 05/28/20 14:11
[2020-06-02] MEDS: SODIUM CHLORIDE 0.9% 1000 ML 1,000 ML IV SCH ×2 (05:42→16:51)
--- NOTE | 2020-06-02 08:29 | Progress Note ---
Assessment and Plan Assessment and plan: 75 YO Male with Vascular Dementia, Cerebral Atherosclerosis presents to ED for evaluation. Patient is confused and lethargic and unable to provide detailed history at the time of my evaluation. Patient history taken from EMS, ED staff, as well as friends who are at the bedside during exam and interview. As per family and friends, the patient has experienced increased confusion and decreased oral intake over the past 3 days since discharge home [facility] a [facility]. Patient is currently bedbound, nonambulatory, requires 6/6 assistance with activities of daily living, and has a palliative performance score 30%. EMS was notified and upon arrival the patient was found to be in distress and subsequently transported to [facility] for further care and evaluation of the aforementioned symptoms. Patient seen and evaluated in the emergency department. All lab and imaging studies reviewed. Patient found to have metabolic encephalopathy, hypotension, metabolic acidosis, acute kidney injury with concomitant volume depletion and acute tubular necrosis, as well as hypotension with the Bystolic blood pressure in the 70s.. Patient treated with IV fluid resuscitation therapy with mild improvement in systolic blood pressure. Patient admitted to telemetry due to increased risk of multisystem organ failure. No prior admission for review. No medication listed at time of admission for reconciliation. Advanced care planning conducted in ED. Patient is confused and lethargic at the time of my evaluation but the patient has a positive gag reflex and is able to protect his airway without difficulty. Severe anemia -Hemoglobin was 7.1 yesterday, will check hemoglobin today -Anemia work-up -GI wants to do EGD/colonoscopy but could not get any family member to sign the consent -Repeat hemoglobin this morning is 5.9 and will transfuse 2 units of blood 05/30/2020 -Hemoglobin this morning is 10.1 -GI will do colonoscopy today -Speech therapy evaluation placed Rectal mass, could be metastatic from the prostate -Could not advance colonoscope because of the mass -Oncology consulted and recommend hospice care -Not a candidate for anticancer treatment -Biopsy did not show cancer, but Immunol staining is pending. The mass looks like cancer. Hematology oncology recommended not to do repeat biopsy. (1) Metabolic encephalopathy Current Visit: Yes Status: Acute Plan to address problem: CT head, neuro check, aspiration precautions, fall precautions, IV fluid res uscitation therapy, supportive care. Patient is calm and cooperative Patient is demented (2) Metabolic acidosis Current Visit: Yes Status: Acute Plan to address problem: IV fluid resuscitation therapy, IV bicarbonate therapy, supportive care. (3) Acute kidney injury (PATO) with acute tubular necrosis (ATN) Current Visit: Yes Status: Acute Plan to address problem: IV fluid resuscitation therapy, monitor urine output every shift, avoid nephrotoxic agents. Patient has history of prostate cancer Creatinine is now significantly improved We will get nephrology consult (4) Volume depletion Current Visit: Yes Status: Acute Plan to address problem: IV fluid resuscitation therapy, monitor urine output every shift, repeat BMP in a.m. (5) Vascular dementia Current Visit: Yes Status: Acute Qualifiers: Dementia behavioral disturbance: without behavioral disturbance Qualified Code(s): F01.50 - Vascular dementia without behavioral disturbance Plan to address problem: Verbal prompting, verbal redirection, benzodiazepine therapy as needed, supportive care. (6) Cerebral atherosclerosis Current Visit: Yes Status: Acute Plan to address problem: Supportive care, continue medical management, risk factor reduction. (7) DVT prophylaxis Current Visit: Yes Status: Acute Plan to address problem: SCD to bilateral lower extremities while in bed (8) Advance care planning Current Visit: Yes Status: Acute Plan to address problem: Disease education conducted, patient is full code, prognosis discussed, patient family acknowledge understanding and agreement with care plan, +30 minutes. Disposition; continue inpatient care 06/01/2020 management plan was discussed in detail with his nephew Mr. Francois at [phone]. He said he wants inpatient hospice and also his thinking to take him to [place] if possible. He is going to call his kids in [place] and he will call me back. He called back and he said if the patient is able to see it will take him to [place] 06/02/2020; PT OT evaluation if the patient is able to sit in a wheelchair. Mr. Francois decided to take him to [place] if the patient is able to sit and able to fly. This morning patient is very weak and is not able to sit on the wheelchair. We will update the family. History Interval history: Patient was seen and evaluated this morning Patient is demented but calm and cooperative I have discussed with his nephew [phone] Hospitalist Physical - Physical exam Narrative exam: Not in cardiopulmonary distress. The patient appeared well nourished and normally developed. Vital signs as documented. Head exam is unremarkable. No scleral icterus . Neck is without jugular venous distension, thyromegaly, or carotid bruits. Lungs are clear to auscultation. Cardiac exam reveals regular rate and Rhythm. Abdominal exam reveals normal bowel sounds, nontender, no organomegaly. Extremities are nonedematous and both femoral and pedal pulses are normal. 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 No focal weakness. - Constitutional Vitals: Temp Pulse Resp BP Pulse Ox 98.0 F 119 H 18 91/56 100 06/02/20 07:51 06/02/20 07:51 06/02/20 07:51 06/02/20 07:51 06/02/20 07:51 General appearance: Present: mild distress HEART Score - HEART Score Troponin: Troponin T < 0.010 ng/mL (0.00-0.029) 05/28/20 14:11 Results - Labs CBC & Chem 7: 05/31/20 08:39 06/02/20 09:09 Labs: Laboratory Last Values WBC 5.5 K/mm3 (4.5-11.0) 05/31/20 08:39 RBC 3.84 M/mm3 (3.65-5.03) 05/31/20 08:39 Hgb 10.1 gm/dl (11.8-15.2) L 05/31/20 08:39 Hct 31.9 % (35.5-45.6) L 05/31/20 08:39 MCV 83 fl (84-94) L 05/31/20 08:39 MCH 26 pg (28-32) L 05/31/20 08:39 MCHC 32 % (32-34) 05/31/20 08:39 RDW 33.0 % (13.2-15.2) H 05/31/20 08:39 Plt Count 158 K/mm3 (140-440) 05/31/20 08:39 Lymph % (Auto) 34.0 % (13.4-35.0) 05/30/20 05:00 [place] % (Auto) 6.5 % (0.0-7.3) 05/30/20 05:00 Eos % (Auto) 0.1 % (0.0-4.3) 05/30/20 05:00 Baso % (Auto) 0.4 % (0.0-1.8) 05/30/20 05:00 Lymph # (Auto) 2.0 K/mm3 (1.2-5.4) 05/30/20 05:00 [place] # (Auto) 0.4 K/mm3 (0.0-0.8) 05/30/20 05:00 Eos # (Auto) 0.0 K/mm3 (0.0-0.4) 05/30/20 05:00 Baso # (Auto) 0.0 K/mm3 (0.0-0.1) 05/30/20 05:00 Add Manual Diff Complete 05/31/20 08:39 Total Counted 100 05/31/20 08:39 Seg Neutrophils % 59.0 % (40.0-70.0) 05/30/20 05:00 Seg Neuts % (Manual) 93.0 % (40.0-70.0) H 05/31/20 08:39 Band Neutrophils % 4.0 % 05/31/20 08:39 Lymphocytes % (Manual) 2.0 % (13.4-35.0) L 05/31/20 08:39 Reactive Lymphs % (Man) 0 % 05/31/20 08:39 Monocytes % (Manual) 1.0 % (0.0-7.3) 05/31/20 08:39 Eosinophils % (Manual) 0 % (0.0-4.3) 05/31/20 08:39 Basophils % (Manual) 0 % (0.0-1.8) 05/31/20 08:39 Metamyelocytes % 0 % 05/31/20 08:39 Myelocytes % 0 % 05/31/20 08:39 Promyelocytes % 0 % 05/31/20 08:39 Blast Cells % 0 % 05/31/20 08:39 Nucleated RBC % Not Reportable 05/31/20 08:39 Seg Neutrophils # 3.4 K/mm3 (1.8-7.7) 05/30/20 05:00 Seg Neutrophils # Man 5.1 K/mm3 (1.8-7.7) 05/31/20 08:39 Band Neutrophils # 0.2 K/mm3 05/31/20 08:39 Lymphocytes # (Manual) 0.1 K/mm3 (1.2-5.4) L 05/31/20 08:39 Abs React Lymphs (Man) 0.0 K/mm3 05/31/20 08:39 Monocytes # (Manual) 0.1 K/mm3 (0.0-0.8) 05/31/20 08:39 Eosinophils # (Manual) 0.0 K/mm3 (0.0-0.4) 05/31/20 08:39 Basophils # (Manual) 0.0 K/mm3 (0.0-0.1) 05/31/20 08:39 Metamyelocytes # 0.0 K/mm3 05/31/20 08:39 Myelocytes # 0.0 K/mm3 05/31/20 08:39 Promyelocytes # 0.0 K/mm3 05/31/20 08:39 Blast Cells # 0.0 K/mm3 05/31/20 08:39 WBC Morphology Not Reportable 05/31/20 08:39 Hypersegmented Neuts Not Reportable 05/31/20 08:39 Hyposegmented Neuts Not Reportable 05/31/20 08:39 Hypogranular Neuts Not Reportable 05/31/20 08:39 Hypersegmented Polys Cancelled 05/30/20 04:14 Smudge Cells Not Reportable 05/31/20 08:39 Toxic Granulation Not Reportable 05/31/20 08:39 Toxic Vacuolation Not Reportable 05/31/20 08:39 Dohle Bodies Not Reportable 05/31/20 08:39 Pelger-Huet Anomaly Not Reportable 05/31/20 08:39 Dorys Rods Not Reportable 05/31/20 08:39 Platelet Estimate Consistent w auto 05/31/20 08:39 Clumped Platelets Not Reportable 05/31/20 08:39 Plt Clumps, EDTA Not Reportable 05/31/20 08:39 Large Platelets Not Reportable 05/31/20 08:39 Giant Platelets Not Reportable 05/31/20 08:39 Platelet Satelliting Not Reportable 05/31/20 08:39 Plt Morphology Comment Not Reportable 05/31/20 08:39 RBC Morphology Not Reportable 05/31/20 08:39 Dimorphic RBCs Not Reportable 05/31/20 08:39 Polychromasia Not Reportable 05/31/20 08:39 Hypochromasia 1+ 05/31/20 08:39 Poikilocytosis Not Reportable 05/31/20 08:39 Basophilic Stippling Cancelled 05/30/20 04:14 Anisocytosis 3+ 05/31/20 08:39 Microcytosis 1+ 05/31/20 08:39 Macrocytosis Not Reportable 05/31/20 08:39 Spherocytes Not Reportable 05/31/20 08:39 Pappenheimer Bodies Not Reportable 05/31/20 08:39 Sickle Cells Not Reportable 05/31/20 08:39 Target Cells Not Reportable 05/31/20 08:39 Tear Drop Cells Not Reportable 05/31/20 08:39 Ovalocytes Not Reportable 05/31/20 08:39 Stomatocytes Cancelled 05/30/20 04:14 Helmet Cells Not Reportable 05/31/20 08:39 Simon-Hanston Bodies Not Reportable 05/31/20 08:39 [place] Rings Not Reportable 05/31/20 08:39 Haylie Cells Few 05/31/20 08:39 Bite Cells Not Reportable 05/31/20 08:39 Crenated Cell Not Reportable 05/31/20 08:39 Elliptocytes Not Reportable 05/31/20 08:39 Acanthocytes (Spur) Not Reportable 05/31/20 08:39 Rouleaux Not Reportable 05/31/20 08:39 Hemoglobin C Crystals Not Reportable 05/31/20 08:39 Schistocytes Not Reportable 05/31/20 08:39 Malaria parasites Not Reportable 05/31/20 08:39 Varghese Bodies Not Reportable 05/31/20 08:39 Hem Pathologist Commnt No 05/31/20 08:39 ABG pH 7.352 pH Units (7.350-7.450) 05/30/20 12:35 ABG pCO2 29.0 mm Hg 05/30/20 12:35 ABG pO2 106.4 mm Hg (80.0-90.0) H 05/30/20 12:35 ABG HCO3 15.7 mmol/L (20.0-26.0) L 05/30/20 12:35 ABG O2 Saturation 97.8 % (95.0-99.0) 05/30/20 12:35 ABG O2 Content 15.6 (0.0-44) 05/30/20 12:35 ABG Base Excess -8.6 mmol/L (-2.0-3.0) L 05/30/20 12:35 ABG Hemoglobin 11.5 gm/dl (14.0-18.0) L 05/30/20 12:35 ABG Carboxyhemoglobin 1.4 % (0.0-5.0) 05/30/20 12:35 ABG Methemoglobin 0.6 % (0.0-1.5) 05/30/20 12:35 Oxyhemoglobin 95.9 % (95.0-99.0) 05/30/20 12:35 FiO2 21 % 05/30/20 12:35 Sodium 147 mmol/L (137-145) H 05/31/20 19:00 Potassium 3.7 mmol/L (3.6-5.0) 05/31/20 19:00 Chloride 112.0 mmol/L (98-107) H 05/31/20 19:00 Carbon Dioxide 22 mmol/L (22-30) 05/31/20 19:00 Anion Gap 17 mmol/L 05/31/20 19:00 BUN 33 mg/dL (9-20) H 05/31/20 19:00 Creatinine 1.9 mg/dL (0.8-1.3) H 05/31/20 19:00 Estimated GFR 42 ml/min 05/31/20 19:00 BUN/Creatinine Ratio 17 % 05/31/20 19:00 Glucose 93 mg/dL (75-100) 05/31/20 19:00 Lactic Acid 1.00 mmol/L (0.7-2.0) 05/30/20 10:10 Calcium 8.5 mg/dL (8.4-10.2) 05/31/20 19:00 Magnesium 2.00 mg/dL (1.7-2.3) 05/28/20 14:11 Iron 21 ug/dL (49-181) L 05/29/20 04:54 TIBC 150 mcg/dL (250-450) L 05/29/20 04:54 Ferritin 993.6 ng/mL (30.0-300.0) H 05/29/20 10:51 Total Bilirubin 0.40 mg/dL (0.1-1.2) 05/28/20 14:11 AST 40 units/L (5-40) 05/28/20 14:11 ALT 6 units/L (7-56) L 05/28/20 14:11 Alkaline Phosphatase 82 units/L (35-129) 05/28/20 14:11 Total Creatine Kinase 310 units/L (55-170) H 05/28/20 14:11 CK-MB (CK-2) 2.1 ng/mL (0.0-4.0) 05/28/20 14:11 CK-MB (CK-2) Rel Index 0.6 (0-4) 05/28/20 14:11 Troponin T < 0.010 ng/mL (0.00-0.029) 05/28/20 14:11 Total Protein 7.0 g/dL (6.3-8.2) 05/28/20 14:11 Albumin 2.6 g/dL (3.9-5) L 05/28/20 14:11 Albumin/Globulin Ratio 0.6 % 05/28/20 14:11 Lipase 48 units/L (13-60) 05/28/20 14:11 Vitamin B12 1248 pg/mL (211-911) H 05/29/20 10:51 Folate 2.84 ng/mL (7.3-26.0) L 05/29/20 10:51 TSH 4.930 mlU/mL (0.270-4.200) H 05/28/20 19:11 Free T4 0.86 ng/dL (0.76-1.46) 05/28/20 19:11 Urine Color Yellow (Yellow) 05/28/20 Unknown Urine Turbidity Clear (Clear) 05/28/20 Unknown Urine pH 5.0 (5.0-7.0) 05/28/20 Unknown Ur Specific [place] 1.017 (1.003-1.030) 05/28/20 Unknown Urine Protein <15 mg/dl mg/dL (Negative) 05/28/20 Unknown Urine Glucose (UA) Neg mg/dL (Negative) 05/28/20 Unknown Urine Ketones Tr mg/dL (Negative) 05/28/20 Unknown Urine Blood Neg (Negative) 05/28/20 Unknown Urine Nitrite Neg (Negative) 05/28/20 Unknown Urine Bilirubin Neg (Negative) 05/28/20 Unknown Urine Urobilinogen 2.0 mg/dL (<2.0) 05/28/20 Unknown Ur Leukocyte Esterase Tr (Negative) 05/28/20 Unknown Urine WBC (Auto) 5.0 /HPF (0.0-6.0) 05/28/20 Unknown Urine RBC (Auto) 3.0 /HPF (0.0-6.0) 05/28/20 Unknown U Epithel Cells (Auto) 1.0 /HPF (0-13.0) 05/28/20 Unknown Urine Bacteria (Auto) 1+ /HPF (Negative) 05/28/20 Unknown Hyaline Casts 1 /LPF 05/28/20 Unknown Urine Mucus Few /HPF 05/28/20 Unknown Urine Opiates Screen Presumptive negative 05/28/20 Unknown Urine Methadone Screen Presumptive negative 05/28/20 Unknown Ur Barbiturates Screen Presumptive negative 05/28/20 Unknown Ur Phencyclidine Scrn Presumptive negative 05/28/20 Unknown Ur Amphetamines Screen Presumptive negative 05/28/20 Unknown U Benzodiazepines Scrn Presumptive negative 05/28/20 Unknown Urine Cocaine Screen Presumptive negative 05/28/20 Unknown U Marijuana (THC) Screen Presumptive negative 05/28/20 Unknown Drugs of Abuse Note Disclamer 05/28/20 Unknown Blood Type B POSITIVE 05/29/20 14:29 Antibody Screen Negative 05/29/20 14:29 Crossmatch See Detail 05/29/20 14:29 Microbiology: Microbiology 05/28/20 18:52 Peripheral/Venous Blood Culture - Preliminary NO GROWTH AFTER 4 DAYS 05/28/20 18:52 Peripheral/Venous Blood Culture - Preliminary NO GROWTH AFTER 4 DAYS - Diagnostic Impressions Diagnostic Impressions: Echocardiogram 05/28/20 19:02 Transthoracic Echocardiogram Indication: Bradycardia BP: 88/50 HR: 69 Conclusions *Global left ventricular systolic function is normal. *The estimated ejection fraction is 50-55%. *Abnormal left ventricular diastolic filling is observed, consistent with impaired relaxation. *The right ventricular global systolic function is normal. *There is trace of aortic regurgitation. *There is mild mitral regurgitation. *There is moderate tricuspid regurgitation. *The right ventricular systolic pressure is calculated at 32 mmHg. *There is trace pulmonic regurgitation. Findings Left Ventricle: The left ventricular chamber size is normal. Global left ventricular systolic function is normal. The estimated ejection fraction is 50-55%. Abnormal left ventricular diastolic filling is observed, consistent with impaired relaxation. Left Atrium: The left atrial chamber size is normal. Right Ventricle: The right ventricular cavity size is normal. The right ventricular global systolic function is normal. Right Atrium: The right atrial cavity size is normal. Aortic Valve: Mild aortic leaflet calcification is visualized. There is trace of aortic regurgitation. Mitral Valve: The mitral valve leaflets are mildly thickened. There is mild mitral regurgitation. Tricuspid Valve: The tricuspid valve leaflets are normal. There is moderate tricuspid regurgitation. The right ventricular systolic pressure is calculated at 32 mmHg. Pulmonic Valve: The pulmonic valve appears normal. There is trace pulmonic regurgitation. Pericardium: There is no pericardial effusion. Aorta: The aorta appears normal. Venous: The inferior vena cava appears normal. Measurements Chambers 2D Name Value Normal Range IVSd (2D) 0.95 cm (0.6 - 1.1) LVPWd (2D) 1 cm (0.6 - 1.1) LVIDd (2D) 4.9 cm (3.7 - 5.6) LVIDs (2D) 3.73 cm (2 - 3.8) LV FS (2D) 23.99 % - EF Teichholz (2D) 47.65 % - Ao root diameter (2D) 3.06 cm (2 - 3.7) Volumes/Mass Name Value Normal Range LA ESV SP 4CH (A/L) 39.56 ml - LA ESV SP 2CH (A/L) 39.94 ml - LA ESV BP (A/L) 40.31 ml - LA ESV BP (A/L) index 19.95 ml/m2 - LA ESV SP 4CH (MOD) 34.13 ml - LA ESV SP 2CH (MOD) 38.89 ml - LA ESV BP (MOD) 36.77 ml - LA ESV BP (MOD) index 18.21 ml/m2 - Diastolic/Systolic Function Name Value Normal Range MV E-wave Vmax 0.6 m/sec - MV deceleration time 200.59 msec - MV A-wave Vmax 0.62 m/sec - MV E:A ratio 0.96 ratio - Aortic Valve Name Value Normal Range AV Vmax 1.49 m/sec - AV VTI 30.69 cm - AV peak gradient 8.84 mmHg - AV mean gradient 4.47 mmHg - LVOT diameter 2.07 cm - LVOT Vmax 1.07 m/sec - LVOT VTI 23.42 cm - LVOT peak gradient 4.57 mmHg - LVOT mean gradient 2.25 mmHg - SV LVOT 78.95 ml - TIMBO (continuity Vmax) 2.42 cm2 - TIMBO (continuity VTI) 2.57 cm2 - AR PHT 817.15 msec - AR peak gradient 38.1 mmHg - Mitral Valve Name Value Normal Range MR Vmax 4.67 m/sec - Tricuspid Valve Name Value Normal Range TR Vmax 2.7 m/sec - TR peak gradient 29 mmHg - RAP 3 mmHg - RVSP 32 mmHg - Pulmonic Valve/Qp:Qs Name Value Normal Range PV Vmax 0.91 m/sec - PV peak gradient 3.34 mmHg - VT end-diastolic Vmax 0.95 m/sec - PV acceleration time 114.18 msec - Rodriguez/IV: Voiding Method Incontinent IV Catheter Type [Right Upper INT / Saline Lock arm] IV Catheter Type [Right Wrist] Peripheral IV IV Catheter Type [Right Peripheral IV Antecubital] Active Medications - Current Medications Current Medications: Generic Name Dose Route Start Last Admin Trade Name Freq PRN Reason Stop Dose Admin Acetaminophen 650 mg 05/28/20 18:59 06/01/20 09:42 Tylenol PO 650 mg Q4H PRN Administration Pain MILD(1-3)/Fever >100.5/SCANLON Heparin Sodium (Porcine) 5,000 unit 05/28/20 22:00 06/01/20 21:59 Heparin SUB-Q 5,000 unit Q12HR GISELA Administration Sodium Chloride 1,000 mls @ 50 mls/hr 05/30/20 12:15 06/02/20 05:42 Nacl 0.9% 1000 Ml IV 50 mls/hr DIRECT GISELA Administration Morphine Sulfate 2 mg 06/01/20 13:00 06/01/20 12:54 Morphine IV 2 mg Q4H PRN Administration Pain, Moderate (4-6) Ondansetron HCl 4 mg 05/28/20 18:59 05/31/20 23:24 Zofran IV 4 mg Q8H PRN Administration Nausea And Vomiting Sodium Bicarbonate 1,300 mg 05/31/20 20:00 06/01/20 21:59 Sodium Bicarbonate PO 1,300 mg TID GISELA Administration Sodium Chloride 10 ml 05/28/20 22:00 06/01/20 21:59 Sodium Chloride Flush Syringe 10 Ml IV 10 ml BID GISELA Administration Sodium Chloride 10 ml 05/28/20 18:59 Sodium Chloride Flush Syringe 10 Ml IV PRN PRN LINE FLUSH Nutrition/Malnutrition Assess - Dietary Evaluation Nutrition/Malnutrition Findings: Nutrition Notes Start: 06/01/20 11:52 Freq: Status: Active Protocol: Document 06/01/20 11:52 TIFFANIE (Rec: 06/01/20 12:04 TIFFANIE [id number]) Co-Sign 06/01/20 11:52 LM Nutrition Notes Need for Assessment generated from: MD Order Initial or Follow up Assessment Current Diagnosis Acute Kidney Injury,Decubitus( Pressure Ulcer) Other Pertinent Diagnosis AMS, hypotension, anemia, rectal mass/bleeding, metabolic encephalopathy Current Diet Mechanical soft Labs/Tests Na 147 BUN 33 Cr 1.9 Pertinent Medications Reviewed Height 5 ft 5 in Weight 96 kg [place] Body Weight (kg) 61.81 BMI 35.2 Weight Status Obese Subjective/Other Information MD consult for poor PO intakes . Per RN, pt is confused and consuming 0% meals. RN requests ONS. Per chart, pt has superficial PU. 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 No Is Patient Ambulatory and/or Out of Bed No REE-([facility]-confined to bed) 1964.112 Kcal/Kg value to use for calculation 17 Approximate Energy Requirements Using 1632 kcal/Kg Calculation Used for Recommendations Kcal/kg Additional Notes Pro: 79-95 g (1-1.2g/kg AdjBW, 61.8 kg) Fluid: 1 ml/kcal Nutrition Intervention Change Diet Order: Continue mechanical soft or TF if pt intakes remain 0% Add Supplement/Snack (indicate name/kcal Ensure Enlive BID /protein ) Provides kCal: 700 Provides Protein (gm) 40 Goal #1 Meet at least 75% energy and protein needs via PO and ONS Anticipated Discharge Needs: Unable to determine at this time Follow-Up By: 06/05/20 Additional Comments F/U for intakes and ONS tolerance
[2020-06-02] MEDS: SODIUM BICARBONATE 650 MG TAB PO SCH ×3 (09:00→21:50)
[2020-06-02] MEDS: HEPARIN 5,000 UNIT/1 ML VIAL SUB-Q SCH ×2 (09:01→21:50)
[2020-06-02 10:36] LABS: Calcium 8.4 mg/dL (8.4-10.2)
--- NOTE | 2020-06-02 19:08 | Progress Note ---
Assessment and Plan Assessment * acute encephalopathy * Anemia * Metabolic acidosis * Acute kidney injury * right hydronephrosis * rectal mass * Peritoneal, retroperitoneal and inguinal adenopathy * Anasarca Recommendations * Urology note reviewed, not a candidate for stent placements/surgical intervention * place a Rodriguez * Hold IV fluids * continue by mouth sodium bicarb tablets * keep MAP>65 * Transfuse for hemoglobin less than 7 * Unable to diurese given soft pressures, monitor for respiratory distress, currently without respiratory distress on room air * Oncology following - determined not to be a candidate for chemotherapy * plans for inpatient hospice reviewed * Will sign off Subjective Date of service: 06/02/20 Principal diagnosis: metastatic cancer Interval history: Patient was seen for his renal issues Nursing, interdisciplinary and consult notes were reviewed Vitals, input and output, medications and labs were reviewed incontinent Awake but confused Objective - Exam Narrative Exam: Vitals: Reviewed General: No acute distress HEENT: Oral mucosa moist, no pharyngeal erythema, no evidence of epistaxis Neck: Supple, no evidence of any JVD, trachea midline, no thyromegaly Chest: Clear to auscultation, no crackles, rales or wheezes Heart: Regular rate and rhythm, S1-S2 heard, no S3-S4, no pericardial rub Abdomen: Soft, nontender, no renal bruit, no suprapubic masses no CVA tenderness Extremity: No peripheral cyanosis, 2+ bilateral lower extremity edema Neurological: somnolent, confused Dermatology; no skin rashes Back: Nontender thoracolumbar spine, no CVA tenderness Psych: No agitation and aggression Musculoskeletal: No joint effusion noted - Vital Signs Vital signs: Vital Signs - 12hr 06/02/20 06/02/20 06/02/20 07:51 08:00 08:40 Temperature 98.0 F Pulse Rate 119 H 69 Respiratory 18 Rate Blood Pressure 91/56 Blood Pressure [Left] O2 Sat by Pulse 100 93 Oximetry 06/02/20 06/02/20 13:26 16:00 Temperature 97 F L Pulse Rate 70 74 Respiratory 16 Rate Blood Pressure Blood Pressure 94/58 [Left] O2 Sat by Pulse 100 Oximetry - Lab 05/31/20 08:39 06/02/20 09:09 Most recent lab results ABG pH 7.352 pH Units (7.350-7.450) 05/30/20 12:35 ABG pCO2 29.0 mm Hg 05/30/20 12:35 ABG pO2 106.4 mm Hg (80.0-90.0) H 05/30/20 12:35 ABG HCO3 15.7 mmol/L (20.0-26.0) L 05/30/20 12:35 ABG O2 Saturation 97.8 % (95.0-99.0) 05/30/20 12:35 Calcium 8.4 mg/dL (8.4-10.2) 06/02/20 09:09 Magnesium 2.00 mg/dL (1.7-2.3) 05/28/20 14:11 Medications & Allergies - Medications Allergies/Adverse Reactions: Allergies No Known Allergies Allergy (Unverified 05/28/20 12:55) Active Medications: Generic Name Dose Route Start Last Admin Trade Name Freq PRN Reason Stop Dose Admin Acetaminophen 650 mg 05/28/20 18:59 06/01/20 09:42 Tylenol PO 650 mg Q4H PRN Administration Pain MILD(1-3)/Fever >100.5/SCANLON Heparin Sodium (Porcine) 5,000 unit 05/28/20 22:00 06/02/20 09:01 Heparin SUB-Q 5,000 unit Q12HR GISELA Administration Sodium Chloride 1,000 mls @ 50 mls/hr 05/30/20 12:15 06/02/20 16:51 Nacl 0.9% 1000 Ml IV 50 mls/hr DIRECT GISELA Administration Morphine Sulfate 2 mg 06/01/20 13:00 06/01/20 12:54 Morphine IV 2 mg Q4H PRN Administration Pain, Moderate (4-6) Ondansetron HCl 4 mg 05/28/20 18:59 05/31/20 23:24 Zofran IV 4 mg Q8H PRN Administration Nausea And Vomiting Sodium Bicarbonate 1,300 mg 05/31/20 20:00 06/02/20 16:49 Sodium Bicarbonate PO 1,300 mg TID GISELA Administration Sodium Chloride 10 ml 05/28/20 22:00 06/02/20 16:49 Sodium Chloride Flush Syringe 10 Ml IV 10 ml BID GISELA Administration Sodium Chloride 10 ml 05/28/20 18:59 Sodium Chloride Flush Syringe 10 Ml IV PRN PRN LINE FLUSH
[2020-06-03] MEDS: SODIUM CHLORIDE 0.9% 1000 ML 1,000 ML IV SCH ×2 (02:11→21:49)
[2020-06-03] MEDS: SODIUM BICARBONATE 650 MG TAB PO SCH ×3 (11:16→21:50)
[2020-06-03] MEDS: HEPARIN 5,000 UNIT/1 ML VIAL SUB-Q SCH ×2 (11:17→21:50)
--- NOTE | 2020-06-03 13:36 | Progress Note ---
Subjective Date of service: 06/03/20 Principal diagnosis: metastatic cancer Interval history: 75 YO Male with Vascular Dementia, Cerebral Atherosclerosis presents to ED for evaluation. Patient is confused and lethargic and unable to provide detailed history at the time of my evaluation. Patient history taken from EMS, ED staff, as well as friends who are at the bedside during exam and interview. As per family and friends, the patient has experienced increased confusion and decreased oral intake over the past 3 days since discharge home from a correction facility. Patient is currently bedbound, nonambulatory, requires 6/6 assistance with activities of daily living, and has a palliative performance score 30%. EMS was notified and upon arrival the patient was found to be in dis tress and subsequently transported to [facility] for further care and evaluation of the aforementioned symptoms. Patient seen and evaluated in the emergency department. All lab and imaging studies reviewed. Patient found to have metabolic encephalopathy, hypotension, metabolic acidosis, acute kidney injury with concomitant volume depletion and acute tubular necrosis, as well as hypotension with the Bystolic blood pressure in the 70s.. Patient treated with IV fluid resuscitation therapy with mild improvement in systolic blood pressure. Patient admitted to telemetry due to increased risk of multisystem organ failure. No prior admission for review. No medication listed at time of admission for reconciliation. Advanced care planning conducted in ED. Patient is confused and lethargic at the time of my evaluation but the patient has a positive gag reflex and is able to protect his airway without difficulty. 06/01/2020 management plan was discussed in detail with his nephew Mr. Francois at [phone]. He said he wants inpatient hospice and also his thinking to take him to [place] if possible. He is going to call his kids in [place] and he will call me back. He called back and he said if the patient is able to see it will take him to [place] 06/02/2020; PT OT evaluation if the patient is able to sit in a wheelchair. Mr. Francois decided to take him to [place] if the patient is able to sit and able to fly. This morning patient is very weak and is not able to sit on the wheelchair. We will update the family. 06/03 patient is awake and alert, ? Confused, poor historian and poor memory, per discussion with RN he is eating poorly, had a 12 beat run of V. tach this morning. He offers no specific complaints and denies any pain. All interdisciplinary notes reviewed Assessment and plan Suspected rectal cancer with retroperitoneal and bone mets Oncology note reviewed For palliative/hospice care Pain control Acute kidney injury Serum creatinine 1.9 Nephrology note reviewed No further recommendations and nephrology signed off Normocytic anemia Monitor H&H and transfuse as needed Acute metabolic encephalopathy Likely patient is at baseline History of dementia Patient apparently is from correction facility and also bedbound Anasarca Patient has 3+ bilateral pedal edema and scrotal edema Unable to diurese him due to low normal blood pressure Objective - Constitutional Vitals: Vital Signs - 12hr 06/03/20 06/03/20 04:22 07:46 Temperature 97.5 F L 98.4 F Pulse Rate 81 73 Respiratory 18 18 Rate Blood Pressure 84/51 83/51 O2 Sat by Pulse 100 90 Oximetry General appearance: Present: no acute distress, cachectic, other (Confused) - EENT Eyes: PERRL, EOM intact ENT: hearing intact, clear oral mucosa - Neck Neck: supple, normal ROM, no masses or JVD - Respiratory Respiratory effort: normal Respiratory: bilateral: CTA, diminished - Cardiovascular Rhythm: regular Heart Sounds: Present: S1 & S2 Extremity abnormal: edema (3+ bilateral lower extremity edema and scrotal edema) - Gastrointestinal General gastrointestinal: Present: soft, non-tender Rectal Exam: deferred - Genitourinary Male genitourinary: scrotal edema - Integumentary Integumentary: clear - Musculoskeletal Musculoskeletal: generalized weakness - Neurologic Neurologic: moves all extremities - Labs CBC & Chem 7: 05/31/20 08:39 06/02/20 09:09 HEART Score - HEART Score Troponin: Troponin T < 0.010 ng/mL (0.00-0.029) 05/28/20 14:11
[2020-06-04 06:00] LABS: Hematocrit 31.3 % (35.5-45.6); Hemoglobin 9.8 gm/dl (11.8-15.2); Mean Corpuscular HGB Conc 31 % (32-34); Mean Corpuscular Volume 83 fl (84-94); Platelet Count 172 K/mm3 (140-440); Red Blood Count 3.76 M/mm3 (3.65-5.03)
[2020-06-04 06:08] LABS: Red Cell Distribution Width 34.5 % (13.2-15.2)
[2020-06-04 06:24] LABS: Calcium 8.8 mg/dL (8.4-10.2)
--- NOTE | 2020-06-04 07:07 | Ultrasound Report ---
ULTRASOUND RENAL INDICATION / CLINICAL INFORMATION: PATO. Rectal mass. COMPARISON: CT dated 05/31/20 FINDINGS: RIGHT KIDNEY: Length = 8.8 cm. - Echogenicity: Normal. - Cortical Thickness: Normal. - Hydronephrosis: Moderate. - Cyst or mass: No significant abnormality. - Stones: None seen. LEFT KIDNEY: Length = 10.6 cm. - Echogenicity: Normal. - Cortical Thickness: Normal. - Hydronephrosis: Mild. - Cyst or mass: No significant abnormality. - Stones: None seen. URINARY BLADDER: Moderately distended urinary bladder. FREE FLUID: None. ADDITIONAL FINDINGS: Soft tissue mass adjacent to the lower pole of the right kidney corresponding to CT abnormality. IMPRESSION: 1. Mild to moderate bilateral hydronephrosis. 2. Soft tissue mass adjacent to the lower pole of the right kidney as seen on CT. Signer Name: Frantz Vu MD Signed: 06/04/2020 7:03 AM Workstation Name: [id number]
[2020-06-04] MEDS ORDERED: D5W/0.45% NACL 1,000 ML IV SCH (08:00)
[2020-06-04] MEDS: SODIUM BICARBONATE 650 MG TAB PO SCH ×3 (09:32→21:59)
[2020-06-04] MEDS: HEPARIN 5,000 UNIT/1 ML VIAL SUB-Q SCH ×2 (09:47→21:59)
--- NOTE | 2020-06-04 09:50 | Progress Note ---
Subjective Principal diagnosis: metastatic cancer Interval history: Patient was seen today for follow-up of multiple renal related issues No complaints of any chest pain pressure or shortness of breath Patient has been noted to have possible rectal cancer with retroperitoneal and bone metastasis, with underlying dementia Interdisciplinary notes that also reviewed Events of 24 hours vitals labs intake output medications were reviewed Past medical history: Reviewed Family history: Reviewed Social history: Reviewed Allergies: Reviewed Physical examination: Vitals: Reviewed HEENT: No pallor or icterus oral mucosa moist Neck: Supple no JVD no thyromegaly Chest: Bilateral clear to auscultation anteriorly Heart: Regular rate and rhythm S1-S2 heard no S3-S4 Abdomen: Soft nontender no voluntary guarding rigidity rebound Extremity:edema between 1 and 2+ Psychiatric: No evidence of agitation and aggression noted Dermatology: No petechial rashes Labs and x-rays: Reviewed from today Assessment and plan Acute kidney injury: Renal function appears to be stable possible deep underlying chronic kidney disease could not be ruled out no indication for renal placement therapy, overall prognosis appears to be poor reviewed internal medicine service notes Mild hypernatremia to monitor and follow Hypokalemia appears to have improved Metabolic acidosis we will change the IV fluid B12 level normal folic acid low 2.84 needs replacement Iron deficiency, admission hemoglobin was 5.9 currently 9.8 posttransfusion We'll continue to follow and make recommendation for renal standpoint Objective - Vital Signs Vital signs: Vital Signs - 12hr 06/04/20 06/04/20 06/04/20 00:51 04:37 08:47 Temperature 97.6 F 97.7 F 98.4 F Pulse Rate 81 56 L 87 Respiratory 20 20 16 Rate Blood Pressure 88/45 86/49 Blood Pressure 80/49 [Left] O2 Sat by Pulse 97 95 98 Oximetry - Lab 06/04/20 05:24 06/04/20 05:24 Most recent lab results ABG pH 7.352 pH Units (7.350-7.450) 05/30/20 12:35 ABG pCO2 29.0 mm Hg 05/30/20 12:35 ABG pO2 106.4 mm Hg (80.0-90.0) H 05/30/20 12:35 ABG HCO3 15.7 mmol/L (20.0-26.0) L 05/30/20 12:35 ABG O2 Saturation 97.8 % (95.0-99.0) 05/30/20 12:35 Calcium 8.8 mg/dL (8.4-10.2) 06/04/20 05:24 Magnesium 2.00 mg/dL (1.7-2.3) 05/28/20 14:11 Medications & Allergies - Medications Allergies/Adverse Reactions: Allergies No Known Allergies Allergy (Unverified 05/28/20 12:55) Home Medications: Home Medications Medication Instructions Recorded Confirmed Last Taken Type Acetaminophen [Acetaminophen TAB] 650 mg PO Q4H PRN tablet 06/04/20 Unknown Rx Sodium Bicarbonate 1,300 mg PO TID tablet 06/04/20 Unknown Rx Active Medications: Generic Name Dose Route Start Last Admin Trade Name Freq PRN Reason Stop Dose Admin Acetaminophen 650 mg 05/28/20 18:59 06/01/20 09:42 Tylenol PO 650 mg Q4H PRN Administration Pain MILD(1-3)/Fever >100.5/SCANLON Heparin Sodium (Porcine) 5,000 unit 05/28/20 22:00 06/04/20 09:47 Heparin SUB-Q 5,000 unit Q12HR GISELA Administration Dextrose/Sodium Chloride 1,000 mls @ 42 mls/hr 06/04/20 08:00 06/04/20 08:10 D5/0.45ns IV 42 mls/hr DIRECT GISELA Administration Morphine Sulfate 2 mg 06/01/20 13:00 06/01/20 12:54 Morphine IV 2 mg Q4H PRN Administration Pain, Moderate (4-6) Ondansetron HCl 4 mg 05/28/20 18:59 05/31/20 23:24 Zofran IV 4 mg Q8H PRN Administration Nausea And Vomiting Sodium Bicarbonate 1,300 mg 05/31/20 20:00 06/04/20 09:32 Sodium Bicarbonate PO 1,300 mg TID GISELA Administration Sodium Chloride 10 ml 05/28/20 22:00 06/04/20 09:33 Sodium Chloride Flush Syringe 10 Ml IV 10 ml BID GISELA Administration Sodium Chloride 10 ml 05/28/20 18:59 Sodium Chloride Flush Syringe 10 Ml IV PRN PRN LINE FLUSH
--- NOTE | 2020-06-04 16:22 | Discharge Summary ---
Providers - Providers Date of Admission: 05/28/20 18:59 Attending physician: TC LEUNG 05/29/20 09:39 Consult to Physician [CONS] Routine Comment: Consulting Provider: MIKAL ENNIS Physician Instructions: Reason For Exam: Severe anemia 05/30/20 08:56 Speech Therapy Evaluation and Treat [CONS] Urgent Reason For Exam: Altered mental status 05/30/20 09:00 Consult to Physician [CONS] Routine Comment: Consulting Provider: ELMER LIMA Physician Instructions: Reason For Exam: PATO Consult to Wound/ET Nurse [CONS] Routine Reason For Exam: wound eval between bottock 05/31/20 09:11 Consult to Physician [CONS] Routine Comment: Consulting Provider: DESIREE MORELOS Physician Instructions: Reason For Exam: rectal bleeding, rectal mass 05/31/20 17:44 Consult to Physician [CONS] Urgent Comment: Consulting Provider: MAJO ROY Physician Instructions: Reason For Exam: right hydronephrosis 06/01/20 07:17 Consult to Dietitian/Nutrition [CONS] Routine Physician Instructions: Reason For Exam: poor po intake Reason for Consult: poor po intake please eval thanks 06/01/20 11:47 Physical Therapy Evaluation and Treat [CONS] Routine Comment: Wheelchair Reason For Exam: Family wants to know if he is able to sit on a Primary care physician: BRIEF WRITER Hospitalization Condition: Stable Hospital course: 75 YO Male with Vascular Dementia, Cerebral Atherosclerosis presents to ED for evaluation on 05/28 was confused and lethargic and unable to provide detailed history. Patient history taken from EMS, ED staff, as well as friends who are at the bedside. As per family and friends, the patient has experienced increased confusion and decreased oral intake over the past 3 days since discharge home from a group home facility. Patient is currently bedbound, nonambulatory, requires 6/6 assistance with activities of daily living, and has a palliative performance score 30%. EMS was notified and upon arrival the patient was found to be in distress and subsequently transported to [facility] for further care and evaluation of the aforementioned symptoms. Patient found to have metabolic encephalopathy, hypotension, metabolic acidosis, acute kidney injury with concomitant volume depletion and acute tubular necrosis, as well as hypotension with the systolic blood pressure in the 70s. Patient treated with IV fluid resuscitation therapy with mild improvement in systolic blood pressure. Patient admitted to telemetry due to increased risk of multisystem organ failure. On 06/01/2020 management plan was discussed in detail with his nephew Mr. Francois at [phone] who said he wants inpatient hospice and also his thinking to take him to [place] if possible. He called back and he said if the patient is able to see it will take him to [place]. On 06/02/2020 a PT OT evaluation was obtained to evaluate if the patient is able to fly to [place] an da subacute rehab was suggested. On 06/03 patient is awake and alert but Confused, poor historian and poor memory, per discussion with RN he is eating poorly, had a 12 beat run of V. tach this morning. He offers no specific complaints and denies any pain. Today on exam patient is more alert and oriented. His family has agreed to [facility] hospice. And he will be transferred to their care. Metastatic Prostate Cancer Confirmed with biopsy Oncology note reviewed For palliative/hospice care Pain control Acute kidney injury- resolved Serum creatinine 1.9 Nephrology note reviewed No further recommendations and nephrology signed off Normocytic anemia Monitor H&H and transfuse as needed Acute metabolic encephalopathy Likely patient is at baseline History of dementia Patient apparently is from group home facility and also bedbound Anasarca Patient has 3+ bilateral pedal edema and scrotal edema Unable to diurese him due to low normal blood pressure Disposition: [facility] ([facility]) Time spent for discharge: 35 Core Measure Documentation - Palliative Care Palliative Care/ Comfort Measures: Hospice Care - Core Measures Any of the following diagnoses?: history only Exam - Physical Exam Narrative exam: General appearance: Present: no acute distress, cachectic, other (Confused) - EENT Eyes: PERRL, EOM intact ENT: hearing intact, clear oral mucosa - Neck Neck: supple, normal ROM, no masses or JVD - Respiratory Respiratory effort: normal Respiratory: bilateral: CTA, diminished - Cardiovascular Rhythm: regular Heart Sounds: Present: S1 & S2 Extremity abnormal: edema (3+ bilateral lower extremity edema and scrotal edema) - Gastrointestinal General gastrointestinal: Present: soft, non-tender Rectal Exam: deferred - Genitourinary Male genitourinary: scrotal edema - Integumentary Integumentary: clear - Musculoskeletal Musculoskeletal: generalized weakness - Neurologic Neurologic: moves all extremities - Constitutional Vitals: Temp Pulse Resp BP Pulse Ox 97.9 F 76 16 92/45 97 06/04/20 16:18 06/04/20 16:18 06/04/20 16:18 06/04/20 16:18 06/04/20 16:18 Plan Activity: advance as tolerated Diet: low fat, low cholesterol, renal Special Instructions: record daily weights, record daily BP diary Additional Instructions: Plan to nearest emergency department or contact primary care physician if experience worsening symptoms. Your care will be transferred over to [facility]. Follow up with: PRIMARY MD ZEV [Primary Care Provider] - 3-5 Days
--- NOTE | 2020-06-04 17:08 | Progress Note ---
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 Oncology note reviewed For palliative/hospice care Pain control Acute kidney injury- resolved Serum creatinine 1.9 Nephrology note reviewed No further recommendations and nephrology signed off Normocytic anemia Monitor H&H and transfuse as needed Acute metabolic encephalopathy Likely patient is at baseline History of dementia Patient apparently is from custodial facility and also bedbound Anasarca Patient has 3+ bilateral pedal edema and scrotal edema Unable to diurese him due to low normal blood pressure History Interval history: 75 YO Male with Vascular Dementia, Cerebral Atherosclerosis presents to ED for evaluation on 05/28 was confused and lethargic and unable to provide detailed history. Patient history taken from EMS, ED staff, as well as friends who are at the bedside. As per family and friends, the patient has experienced increased confusion and decreased oral intake over the past 3 days since discharge home from a custodial facility. Patient is currently bedbound, nonambulatory, requires 6/6 assistance with activities of daily living, and has a palliative performance score 30%. EMS was notified and upon arrival the patient was found to be in distress and subsequently transported to [facility] for further care and evaluation of the aforementioned symptoms. Patient found to have metabolic encephalopathy, hypotension, metabolic acidosis, acute kidney injury with concomitant volume depletion and acute tubular necrosis, as well as hypotension with the systolic blood pressure in the 70s. Patient treated with IV fluid resuscitation therapy with mild improvement in systolic blood pressure. Patient admitted to telemetry due to increased risk of multisystem organ failure. On 06/01/2020 management plan was discussed in detail with his nephew Mr. Francois at [phone] who said he wants inpatient hospice and also his thinking to take him to [place] if possible. He called back and he said if the patient is able to see it will take him to [place]. On 06/02/2020 a PT OT evaluation was obtained to evaluate if the patient is able to fly to [place] an da subacute rehab was suggested. On 06/03 patient is awake and alert but Confused, poor historian and poor memory, per discussion with RN he is eating poorly, had a 12 beat run of V. tach this morning. He offers no specific complaints and denies any pain. Today on exam patient is more alert and oriented. His family has agreed to [facility] hospice. And he will be transferred to their care. 06/04 COVID-19 PCR pending Hospitalist Physical - Physical exam Narrative exam: General appearance: Present: no acute distress, cachectic, other (Confused) - EENT Eyes: PERRL, EOM intact ENT: hearing intact, clear oral mucosa - Neck Neck: supple, normal ROM, no masses or JVD - Respiratory Respiratory effort: normal Respiratory: bilateral: CTA, diminished - Cardiovascular Rhythm: regular Heart Sounds: Present: S1 & S2 Extremity abnormal: edema (3+ bilateral lower extremity edema and scrotal edema) - Gastrointestinal General gastrointestinal: Present: soft, non-tender Rectal Exam: deferred - Genitourinary Male genitourinary: scrotal edema - Integumentary Integumentary: clear - Musculoskeletal Musculoskeletal: generalized weakness - Neurologic Neurologic: moves all extremities - Constitutional Vitals: Temp Pulse Resp BP Pulse Ox 97.9 F 76 16 92/45 97 06/04/20 16:18 06/04/20 16:18 06/04/20 16:18 06/04/20 16:18 06/04/20 16:18 General appearance: Present: no acute distress, cachectic, other (Confused) HEART Score - HEART Score Troponin: Troponin T < 0.010 ng/mL (0.00-0.029) 05/28/20 14:11 Results - Labs CBC & Chem 7: 06/04/20 05:24 06/04/20 05:24 Labs: Laboratory Last Values WBC 5.6 K/mm3 (4.5-11.0) 06/04/20 05:24 RBC 3.76 M/mm3 (3.65-5.03) 06/04/20 05:24 Hgb 9.8 gm/dl (11.8-15.2) L 06/04/20 05:24 Hct 31.3 % (35.5-45.6) L 06/04/20 05:24 MCV 83 fl (84-94) L 06/04/20 05:24 MCH 26 pg (28-32) L 06/04/20 05:24 MCHC 31 % (32-34) L 06/04/20 05:24 RDW 34.5 % (13.2-15.2) H 06/04/20 05:24 Plt Count 172 K/mm3 (140-440) 06/04/20 05:24 Lymph % (Auto) 34.0 % (13.4-35.0) 05/30/20 05:00 Coles % (Auto) 6.5 % (0.0-7.3) 05/30/20 05:00 Eos % (Auto) 0.1 % (0.0-4.3) 05/30/20 05:00 Baso % (Auto) 0.4 % (0.0-1.8) 05/30/20 05:00 Lymph # (Auto) 2.0 K/mm3 (1.2-5.4) 05/30/20 05:00 Coles # (Auto) 0.4 K/mm3 (0.0-0.8) 05/30/20 05:00 Eos # (Auto) 0.0 K/mm3 (0.0-0.4) 05/30/20 05:00 Baso # (Auto) 0.0 K/mm3 (0.0-0.1) 05/30/20 05:00 Add Manual Diff Complete 05/31/20 08:39 Total Counted 100 05/31/20 08:39 Seg Neutrophils % 59.0 % (40.0-70.0) 05/30/20 05:00 Seg Neuts % (Manual) 93.0 % (40.0-70.0) H 05/31/20 08:39 Band Neutrophils % 4.0 % 05/31/20 08:39 Lymphocytes % (Manual) 2.0 % (13.4-35.0) L 05/31/20 08:39 Reactive Lymphs % (Man) 0 % 05/31/20 08:39 Monocytes % (Manual) 1.0 % (0.0-7.3) 05/31/20 08:39 Eosinophils % (Manual) 0 % (0.0-4.3) 05/31/20 08:39 Basophils % (Manual) 0 % (0.0-1.8) 05/31/20 08:39 Metamyelocytes % 0 % 05/31/20 08:39 Myelocytes % 0 % 05/31/20 08:39 Promyelocytes % 0 % 05/31/20 08:39 Blast Cells % 0 % 05/31/20 08:39 Nucleated RBC % Not Reportable 05/31/20 08:39 Seg Neutrophils # 3.4 K/mm3 (1.8-7.7) 05/30/20 05:00 Seg Neutrophils # Man 5.1 K/mm3 (1.8-7.7) 05/31/20 08:39 Band Neutrophils # 0.2 K/mm3 05/31/20 08:39 Lymphocytes # (Manual) 0.1 K/mm3 (1.2-5.4) L 05/31/20 08:39 Abs React Lymphs (Man) 0.0 K/mm3 05/31/20 08:39 Monocytes # (Manual) 0.1 K/mm3 (0.0-0.8) 05/31/20 08:39 Eosinophils # (Manual) 0.0 K/mm3 (0.0-0.4) 05/31/20 08:39 Basophils # (Manual) 0.0 K/mm3 (0.0-0.1) 05/31/20 08:39 Metamyelocytes # 0.0 K/mm3 05/31/20 08:39 Myelocytes # 0.0 K/mm3 05/31/20 08:39 Promyelocytes # 0.0 K/mm3 05/31/20 08:39 Blast Cells # 0.0 K/mm3 05/31/20 08:39 WBC Morphology Not Reportable 05/31/20 08:39 Hypersegmented Neuts Not Reportable 05/31/20 08:39 Hyposegmented Neuts Not Reportable 05/31/20 08:39 Hypogranular Neuts Not Reportable 05/31/20 08:39 Hypersegmented Polys Cancelled 05/30/20 04:14 Smudge Cells Not Reportable 05/31/20 08:39 Toxic Granulation Not Reportable 05/31/20 08:39 Toxic Vacuolation Not Reportable 05/31/20 08:39 Dohle Bodies Not Reportable 05/31/20 08:39 Pelger-Huet Anomaly Not Reportable 05/31/20 08:39 Dorys Rods Not Reportable 05/31/20 08:39 Platelet Estimate Consistent w auto 05/31/20 08:39 Clumped Platelets Not Reportable 05/31/20 08:39 Plt Clumps, EDTA Not Reportable 05/31/20 08:39 Large Platelets Not Reportable 05/31/20 08:39 Giant Platelets Not Reportable 05/31/20 08:39 Platelet Satelliting Not Reportable 05/31/20 08:39 Plt Morphology Comment Not Reportable 05/31/20 08:39 RBC Morphology Not Reportable 05/31/20 08:39 Dimorphic RBCs Not Reportable 05/31/20 08:39 Polychromasia Not Reportable 05/31/20 08:39 Hypochromasia 1+ 05/31/20 08:39 Poikilocytosis Not Reportable 05/31/20 08:39 Basophilic Stippling Cancelled 05/30/20 04:14 Anisocytosis 3+ 05/31/20 08:39 Microcytosis 1+ 05/31/20 08:39 Macrocytosis Not Reportable 05/31/20 08:39 Spherocytes Not Reportable 05/31/20 08:39 Pappenheimer Bodies Not Reportable 05/31/20 08:39 Sickle Cells Not Reportable 05/31/20 08:39 Target Cells Not Reportable 05/31/20 08:39 Tear Drop Cells Not Reportable 05/31/20 08:39 Ovalocytes Not Reportable 05/31/20 08:39 Stomatocytes Cancelled 05/30/20 04:14 Helmet Cells Not Reportable 05/31/20 08:39 [place] Bodies Not Reportable 05/31/20 08:39 [place] Rings Not Reportable 05/31/20 08:39 Haylie Cells Few 05/31/20 08:39 Bite Cells Not Reportable 05/31/20 08:39 Crenated Cell Not Reportable 05/31/20 08:39 Elliptocytes Not Reportable 05/31/20 08:39 Acanthocytes (Spur) Not Reportable 05/31/20 08:39 Rouleaux Not Reportable 05/31/20 08:39 Hemoglobin C Crystals Not Reportable 05/31/20 08:39 Schistocytes Not Reportable 05/31/20 08:39 Malaria parasites Not Reportable 05/31/20 08:39 Varghese Bodies Not Reportable 05/31/20 08:39 Hem Pathologist Commnt No 05/31/20 08:39 ABG pH 7.352 pH Units (7.350-7.450) 05/30/20 12:35 ABG pCO2 29.0 mm Hg 05/30/20 12:35 ABG pO2 106.4 mm Hg (80.0-90.0) H 05/30/20 12:35 ABG HCO3 15.7 mmol/L (20.0-26.0) L 05/30/20 12:35 ABG O2 Saturation 97.8 % (95.0-99.0) 05/30/20 12:35 ABG O2 Content 15.6 (0.0-44) 05/30/20 12:35 ABG Base Excess -8.6 mmol/L (-2.0-3.0) L 05/30/20 12:35 ABG Hemoglobin 11.5 gm/dl (14.0-18.0) L 05/30/20 12:35 ABG Carboxyhemoglobin 1.4 % (0.0-5.0) 05/30/20 12:35 ABG Methemoglobin 0.6 % (0.0-1.5) 05/30/20 12:35 Oxyhemoglobin 95.9 % (95.0-99.0) 05/30/20 12:35 FiO2 21 % 05/30/20 12:35 Sodium 147 mmol/L (137-145) H 06/04/20 05:24 Potassium 3.7 mmol/L (3.6-5.0) 06/04/20 05:24 Chloride 110.8 mmol/L (98-107) H 06/04/20 05:24 Carbon Dioxide 15 mmol/L (22-30) L 06/04/20 05:24 Anion Gap 25 mmol/L 06/04/20 05:24 BUN 35 mg/dL (9-20) H 06/04/20 05:24 Creatinine 2.0 mg/dL (0.8-1.3) H 06/04/20 05:24 Estimated GFR 40 ml/min 06/04/20 05:24 BUN/Creatinine Ratio 18 % 06/04/20 05:24 Glucose 87 mg/dL (75-100) 06/04/20 05:24 Lactic Acid 1.00 mmol/L (0.7-2.0) 05/30/20 10:10 Calcium 8.8 mg/dL (8.4-10.2) 06/04/20 05:24 Magnesium 2.00 mg/dL (1.7-2.3) 05/28/20 14:11 Iron 21 ug/dL (49-181) L 05/29/20 04:54 TIBC 150 mcg/dL (250-450) L 05/29/20 04:54 Ferritin 993.6 ng/mL (30.0-300.0) H 05/29/20 10:51 Total Bilirubin 0.40 mg/dL (0.1-1.2) 05/28/20 14:11 AST 40 units/L (5-40) 05/28/20 14:11 ALT 6 units/L (7-56) L 05/28/20 14:11 Alkaline Phosphatase 82 units/L (35-129) 05/28/20 14:11 Total Creatine Kinase 310 units/L (55-170) H 05/28/20 14:11 CK-MB (CK-2) 2.1 ng/mL (0.0-4.0) 05/28/20 14:11 CK-MB (CK-2) Rel Index 0.6 (0-4) 05/28/20 14:11 Troponin T < 0.010 ng/mL (0.00-0.029) 05/28/20 14:11 Total Protein 7.0 g/dL (6.3-8.2) 05/28/20 14:11 Albumin 2.6 g/dL (3.9-5) L 05/28/20 14:11 Albumin/Globulin Ratio 0.6 % 05/28/20 14:11 Lipase 48 units/L (13-60) 05/28/20 14:11 Vitamin B12 1248 pg/mL (211-911) H 05/29/20 10:51 Folate 2.84 ng/mL (7.3-26.0) L 05/29/20 10:51 TSH 4.930 mlU/mL (0.270-4.200) H 05/28/20 19:11 Free T4 0.86 ng/dL (0.76-1.46) 05/28/20 19:11 Urine Color Yellow (Yellow) 05/28/20 Unknown Urine Turbidity Clear (Clear) 05/28/20 Unknown Urine pH 5.0 (5.0-7.0) 05/28/20 Unknown Ur Specific [place] 1.017 (1.003-1.030) 05/28/20 Unknown Urine Protein <15 mg/dl mg/dL (Negative) 05/28/20 Unknown Urine Glucose (UA) Neg mg/dL (Negative) 05/28/20 Unknown Urine Ketones Tr mg/dL (Negative) 05/28/20 Unknown Urine Blood Neg (Negative) 05/28/20 Unknown Urine Nitrite Neg (Negative) 05/28/20 Unknown Urine Bilirubin Neg (Negative) 05/28/20 Unknown Urine Urobilinogen 2.0 mg/dL (<2.0) 05/28/20 Unknown Ur Leukocyte Esterase Tr (Negative) 05/28/20 Unknown Urine WBC (Auto) 5.0 /HPF (0.0-6.0) 05/28/20 Unknown Urine RBC (Auto) 3.0 /HPF (0.0-6.0) 05/28/20 Unknown U Epithel Cells (Auto) 1.0 /HPF (0-13.0) 05/28/20 Unknown Urine Bacteria (Auto) 1+ /HPF (Negative) 05/28/20 Unknown Hyaline Casts 1 /LPF 05/28/20 Unknown Urine Mucus Few /HPF 05/28/20 Unknown Urine Opiates Screen Presumptive negative 05/28/20 Unknown Urine Methadone Screen Presumptive negative 05/28/20 Unknown Ur Barbiturates Screen Presumptive negative 05/28/20 Unknown Ur Phencyclidine Scrn Presumptive negative 05/28/20 Unknown Ur Amphetamines Screen Presumptive negative 05/28/20 Unknown U Benzodiazepines Scrn Presumptive negative 05/28/20 Unknown Urine Cocaine Screen Presumptive negative 05/28/20 Unknown U Marijuana (THC) Screen Presumptive negative 05/28/20 Unknown Drugs of Abuse Note Disclamer 05/28/20 Unknown Blood Type B POSITIVE 05/29/20 14:29 Antibody Screen Negative 05/29/20 14:29 Crossmatch See Detail 05/29/20 14:29 - Diagnostic Impressions Diagnostic Impressions: Echocardiogram 05/28/20 19:02 Transthoracic Echocardiogram Indication: Bradycardia BP: 88/50 HR: 69 Conclusions *Global left ventricular systolic function is normal. *The estimated ejection fraction is 50-55%. *Abnormal left ventricular diastolic filling is observed, consistent with impaired relaxation. *The right ventricular global systolic function is normal. *There is trace of aortic regurgitation. *There is mild mitral regurgitation. *There is moderate tricuspid regurgitation. *The right ventricular systolic pressure is calculated at 32 mmHg. *There is trace pulmonic regurgitation. Findings Left Ventricle: The left ventricular chamber size is normal. Global left ventricular systolic function is normal. The estimated ejection fraction is 50-55%. Abnormal left ventricular diastolic filling is observed, consistent with impaired relaxation. Left Atrium: The left atrial chamber size is normal. Right Ventricle: The right ventricular cavity size is normal. The right ventricular global systolic function is normal. Right Atrium: The right atrial cavity size is normal. Aortic Valve: Mild aortic leaflet calcification is visualized. There is trace of aortic regurgitation. Mitral Valve: The mitral valve leaflets are mildly thickened. There is mild mitral regurgitation. Tricuspid Valve: The tricuspid valve leaflets are normal. There is moderate tricuspid regurgitation. The right ventricular systolic pressure is calculated at 32 mmHg. Pulmonic Valve: The pulmonic valve appears normal. There is trace pulmonic regurgitation. Pericardium: There is no pericardial effusion. Aorta: The aorta appears normal. Venous: The inferior vena cava appears normal. Measurements Chambers 2D Name Value Normal Range IVSd (2D) 0.95 cm (0.6 - 1.1) LVPWd (2D) 1 cm (0.6 - 1.1) LVIDd (2D) 4.9 cm (3.7 - 5.6) LVIDs (2D) 3.73 cm (2 - 3.8) LV FS (2D) 23.99 % - EF Teichholz (2D) 47.65 % - Ao root diameter (2D) 3.06 cm (2 - 3.7) Volumes/Mass Name Value Normal Range LA ESV SP 4CH (A/L) 39.56 ml - LA ESV SP 2CH (A/L) 39.94 ml - LA ESV BP (A/L) 40.31 ml - LA ESV BP (A/L) index 19.95 ml/m2 - LA ESV SP 4CH (MOD) 34.13 ml - LA ESV SP 2CH (MOD) 38.89 ml - LA ESV BP (MOD) 36.77 ml - LA ESV BP (MOD) index 18.21 ml/m2 - Diastolic/Systolic Function Name Value Normal Range MV E-wave Vmax 0.6 m/sec - MV deceleration time 200.59 msec - MV A-wave Vmax 0.62 m/sec - MV E:A ratio 0.96 ratio - Aortic Valve Name Value Normal Range AV Vmax 1.49 m/sec - AV VTI 30.69 cm - AV peak gradient 8.84 mmHg - AV mean gradient 4.47 mmHg - LVOT diameter 2.07 cm - LVOT Vmax 1.07 m/sec - LVOT VTI 23.42 cm - LVOT peak gradient 4.57 mmHg - LVOT mean gradient 2.25 mmHg - SV LVOT 78.95 ml - TIMBO (continuity Vmax) 2.42 cm2 - TIMBO (continuity VTI) 2.57 cm2 - AR PHT 817.15 msec - AR peak gradient 38.1 mmHg - Mitral Valve Name Value Normal Range MR Vmax 4.67 m/sec - Tricuspid Valve Name Value Normal Range TR Vmax 2.7 m/sec - TR peak gradient 29 mmHg - RAP 3 mmHg - RVSP 32 mmHg - Pulmonic Valve/Qp:Qs Name Value Normal Range PV Vmax 0.91 m/sec - PV peak gradient 3.34 mmHg - NH end-diastolic Vmax 0.95 m/sec - PV acceleration time 114.18 msec - Rodriguez/IV: Voiding Method Incontinent IV Catheter Type [Left Wrist] Peripheral IV IV Catheter Type [Right Upper INT / Saline Lock arm] IV Catheter Type [Right Wrist] Peripheral IV IV Catheter Type [Right Peripheral IV Antecubital] Active Medications - Current Medications Current Medications: Generic Name Dose Route Start Last Admin Trade Name Freq PRN Reason Stop Dose Admin Acetaminophen 650 mg 05/28/20 18:59 06/01/20 09:42 Tylenol PO 650 mg Q4H PRN Administration Pain MILD(1-3)/Fever >100.5/SCANLON Heparin Sodium (Porcine) 5,000 unit 05/28/20 22:00 06/04/20 09:47 Heparin SUB-Q 5,000 unit Q12HR GISELA Administration Dextrose/Sodium Chloride 1,000 mls @ 42 mls/hr 06/04/20 08:00 06/04/20 08:10 D5/0.45ns IV 42 mls/hr DIRECT GISELA Administration Morphine Sulfate 2 mg 06/01/20 13:00 06/01/20 12:54 Morphine IV 2 mg Q4H PRN Administration Pain, Moderate (4-6) Ondansetron HCl 4 mg 05/28/20 18:59 05/31/20 23:24 Zofran IV 4 mg Q8H PRN Administration Nausea And Vomiting Sodium Bicarbonate 1,300 mg 05/31/20 20:00 06/04/20 14:01 Sodium Bicarbonate PO 1,300 mg TID GISELA Administration Sodium Chloride 10 ml 05/28/20 22:00 06/04/20 09:33 Sodium Chloride Flush Syringe 10 Ml IV 10 ml BID GISELA Administration Sodium Chloride 10 ml 05/28/20 18:59 Sodium Chloride Flush Syringe 10 Ml IV PRN PRN LINE FLUSH Nutrition/Malnutrition Assess - Dietary Evaluation Nutrition/Malnutrition Findings: Nutrition Notes Start: 06/01/20 11:52 Freq: Status: Active Protocol: Document 06/01/20 11:52 TIFFANIE (Rec: 06/01/20 12:04 TIFFANIE [id number]) Co-Sign 06/01/20 11:52 LM Nutrition Notes Need for Assessment generated from: MD Order Initial or Follow up Assessment Current Diagnosis Acute Kidney Injury,Decubitus( Pressure Ulcer) Other Pertinent Diagnosis AMS, hypotension, anemia, rectal mass/bleeding, metabolic encephalopathy Current Diet Mechanical soft Labs/Tests Na 147 BUN 33 Cr 1.9 Pertinent Medications Reviewed Height 5 ft 5 in Weight 96 kg [place] Body Weight (kg) 61.81 BMI 35.2 Weight Status Obese Subjective/Other Information MD consult for poor PO intakes . Per RN, pt is confused and consuming 0% meals. RN requests ONS. Per chart, pt has superficial PU. Burn Absent Trauma Absent GI Symptoms Nausea,Vomiting Food Allergy No Current % PO Negligible Minimum of two criteria Yes Energy Intake (severe) < or equal to 50% Estimated Energy Requirement > or equal to 5 days Fluid Accumulation Moderate to Severe (severe) Reduced Jacquard Card Lacer Strength Measurably Reduced (severe) #1 Nutrition Diagnosis Malnutrition Etiology AMS, N/V As Evidenced by Signs and Symptoms pt consuming 0% meals x5 days, 3+ pitting edema, BL weak copy lathe tender strength Is patient on ventilator? No Is Patient Ambulatory and/or Out of Bed No REE-([facility]-confined to bed) 1964.112 Kcal/Kg value to use for calculation 17 Approximate Energy Requirements Using 1632 kcal/Kg Calculation Used for Recommendations Kcal/kg Additional Notes Pro: 79-95 g (1-1.2g/kg AdjBW, 61.8 kg) Fluid: 1 ml/kcal Nutrition Intervention Change Diet Order: Continue mechanical soft or TF if pt intakes remain 0% Add Supplement/Snack (indicate name/kcal Ensure Enlive BID /protein ) Provides kCal: 700 Provides Protein (gm) 40 Goal #1 Meet at least 75% energy and protein needs via PO and ONS Anticipated Discharge Needs: Unable to determine at this time Follow-Up By: 06/05/20 Additional Comments F/U for intakes and ONS tolerance
[2020-06-04 22:40] VITALS: BP 89/49
== END 2020-06-04 20:00 | disposition hospice, inpatient (51) | DRG 374 ==
LOC: ED 12:32 → 4A 18:59
PROVIDERS: ADMIT Internal Medicine; ATTEND Internal Medicine
PROC: 30233N1 Transfusion of Nonautologous Red Blood Cells into Peripheral Vein, Percutaneous Approach (ICD-10-PCS; principal; 2020-05-29)
PROC: 4A033R1 Measurement of Arterial Saturation, Peripheral, Percutaneous Approach (ICD-10-PCS; 2020-05-30)
PROC: 0DBP8ZX Excision of Rectum, Via Natural or Artificial Opening Endoscopic, Diagnostic (ICD-10-PCS; 2020-05-30)
DX: C78.5 Secondary malignant neoplasm of large intestine and rectum (principal); G93.41 Metabolic encephalopathy; E87.2 Acidosis; D62 Acute posthemorrhagic anemia; N13.30 Unspecified hydronephrosis; C79.51 Secondary malignant neoplasm of bone; E87.0 Hyperosmolality and hypernatremia; R64 Cachexia; N17.9 Acute kidney failure, unspecified; K62.6 Ulcer of anus and rectum; C77.9 Secondary and unspecified malignant neoplasm of lymph node, unspecified; C61 Malignant neoplasm of prostate; E86.9 Volume depletion, unspecified; F01.50 Vascular dementia, unspecified severity, without behavioral disturbance, psychotic disturbance, mood disturbance, and anxiety; I67.2 Cerebral atherosclerosis; I95.9 Hypotension, unspecified; Z74.01 Bed confinement status; Z71.89 Other specified counseling; E87.6 Hypokalemia; Z68.36 Body mass index [BMI] 36.0-36.9, adult
CPT/HCPCS: 36415; 36600; 70450; 71045; 74176; 76770; 80048; 80053; 80307; 81001; 82140; 82270; 82550; 82553; 82607; 82728; 82747; 82803; 83550; 83690; 83735; 84439; 84443; 84484; 85007; 85014; 85018; 85025; 85027; 86850; 86900; 86901; 86920; 87040; 88305; 88341; 88342; 93005; 93306; 94760; 96365; 96366; 96367; 96375; G0378; J0696; J1644; J2270; J2370; J2405; J2704; J7030; J7070; P9016